=== PATIENT | male | born 1960 | race Caucasian/White ===

== ENCOUNTER 2018-02-03 09:48 | Inpatient (IN) | payer SELFPAY ==
[2018-02-03] MEDS ORDERED: ONDANSETRON 4 MG/2 ML VIAL ONE (10:57)
[2018-02-03] MEDS ORDERED: MORPHINE 10 MG/ML VIAL ONE (10:57)
[2018-02-03] MEDS ORDERED: NA CHLORIDE 0.9% 1,000 ML ONE (10:57)
[2018-02-03 11:26] LABS: Absolute Lymphocytes (CBC) 1.8 K/uL (0.7-4.9); Absolute Monocytes 0.5 K/uL (0.1-1.3); Absolute Neutrophil 3.6 K/uL (1.8-8.0); Basophils % 1.1 % (0-1.3); Eosinophils % 0.3 % (0-4.4); Hematocrit 43.6 % (39.6-49.0); Lymphocytes % 30.6 % (15.3-44.8); MCH 28.7 pg (27.0-35.0); MCV 88.1 fL (80-100); MPV 11.3 fL (7.6-11.3); Monocytes % 8.9 % (3.3-12.3); RBC Red Blood Cell Count 4.95 M/uL (4.33-5.43)
[2018-02-03 14:18] LABS: ALT/SGPT 115 IU/L (10-60); Albumin 2.9 g/dL (3.2-5.5); Alkaline Phosphatase 349 IU/L (42-121); BUN Blood Urea Nitrogen 12 mg/dL (6-20); Bicarbonate 21 mEq/L (21-31); Bilirubin Direct 1.8 mg/dL (0-0.2); Bilirubin Total 4.2 mg/dL (0.3-1.2); Glucose Level 98 mg/dL (65-120); Lipase 49 U/L (22-51); Potassium 4.5 mEq/L (3.6-5.0); Sodium Level 132 mEq/L (135-145)
[2018-02-03 14:26] LABS: AST/SGOT 346 IU/L (10-42)
--- NOTE | 2018-02-03 15:01 | RAD REPORT ---
EXAM DESCRIPTION: CTAbdomen Pelvis W Contrast - 02/03/2018 2:41 pm CLINICAL HISTORY: Abdominal pain. Nausea, vomiting and diarrhea. COMPARISON: 11/07/2017, 02/03/2015 TECHNIQUE: Biphasic CT imaging of the abdomen and pelvis was performed with 100 ml non-ionic IV cont rast. All CT scans are performed using dose optimization technique as appropriate and may include automated exposure control or mA/KV adjustment according to patient size. FINDINGS: The lung bases are clear. Prominent diffuse fatty liver noted. Cholecystectomy clips are seen. The spleen, pancreas, adrenal gl ands and kidneys are within normal limits. No bowel obstruction, free air, free fluid or abscess. Mild mucosal thickening of the colon is seen w hich could indicate a mild nonspecific colitis. The appendix appears absent. Scattered colonic divert icula. No evidence of significant lymphadenopathy. No suspicious bony findings. IMPRESSION: Mild nonspecific colitis is suspected. Fatty liver.
--- NOTE | 2018-02-03 15:32 | ER ---
Nurse's Notes [facility] Name: Wilver Mejia Age: 57 yrs Sex: Male : 1960 Arrival Date: 02/03/2018 Time: 09:48 Bed 20 Private MD: Diagnosis: Colitis;Vomiting Presentation: 02/03 10:24 Presenting complaint: Patient states: " My stomach has been hurting me bad for about a ph week and a half." Reports pain in L upper and lower quandrants, + N/V/D, denies fever. Transition of care: patient was not received from another setting of care. Onset of symptoms was February 03, 2018. Initial Sepsis Screen: Does the patient meet any 2 criteria? No. Patient's initial sepsis screen is negative. Does the patient have a suspected source of infection? No. Patient initial sepsis screen negative. Care prior to arrival: None. 10:24 Method Of Arrival: Ambulatory ph 10:24 Acuity: NADEEN 3 ph Historical: - Allergies: 10:26 No Known Allergies; ph - Home Meds: 10:26 hydrochlorothiazide 25 mg Oral tab 1 tab once daily [Active]; ph - PMHx: 10:26 Hypertension; ph - PSHx: 10:26 Cholecystectomy; Appendectomy; ph - Immunization history:: Adult Immunizations unknown. - Social history:: Smoking status: Patient uses tobacco products, smokes one-half pack cigarettes per day. - Family history:: not pertinent. - Hospitalizations: : No recent hospitalization is reported. Screenin:30 Abuse screen: Denies threats or abuse. Denies injuries from another. Nutritional aj1 screening: No deficits noted. Tuberculosis screening: No symptoms or risk factors identified. 17:10 Fall Risk No fall in past 12 months (0 pts). No secondary diagnosis (0 pts). IV access aj1 (20 points). Ambulatory Aid- None/Bed Rest/Nurse Assist (0 pts). Gait- Normal/Bed Rest/Wheelchair (0 pts) Mental Status- Oriented to own ability (0 pts). Total Floyd Fall Scale indicates No Risk (0-24 pts). Assessment: 10:30 General: Appears in no apparent distress. uncomfortable, Behavior is calm, cooperative, aj1 appropriate for age. Pain: Complains of pain in right upper quadrant and right lower quadrant Pain does not radiate. Pain currently is 10 out of 10 on a pain scale. Quality of pain is described as sharp, Pain began one week ago. Neuro: Level of Consciousness is awake, alert, obeys commands, Oriented to person, place, time, situation, Speech is normal, Facial symmetry appears normal. Cardiovascular: Patient's skin is warm and dry. Respiratory: Airway is patent Respiratory effort is even, unlabored, Respiratory pattern is regular, symmetrical. GI: Abdomen is flat, non-distended, Bowel sounds present X 4 quads. Abd is soft X 4 quads Abdomen is tender to palpation X 4 quads. Reports lower abdominal pain, upper abdominal pain, diarrhea, nausea, vomiting. : No signs and/or symptoms were reported regarding the genitourinary system. EENT: No signs and/or symptoms were reported regarding the EENT system. Derm: No signs and/or symptoms reported regarding the dermatologic system. Skin is pink, warm \\T\\ dry. normal. Musculoskeletal: No signs and/or symptoms reported regarding the musculoskeletal system. Circulation, motion, and sensation intact. 11:18 Reassessment: Patient appears in no apparent distress at this time. No changes from aj1 previously documented assessment. Patient and/or family updated on plan of care and expected duration. Pain level reassessed. Patient is alert, oriented x 3, equal unlabored respirations, skin warm/dry/pink. 12:28 Reassessment: Patient appears in no apparent distress at this time. No changes from aj1 previously documented assessment. Patient and/or family updated on plan of care and expected duration. Pain level reassessed. Patient is alert, oriented x 3, equal unlabored respirations, skin warm/dry/pink. 13:17 Reassessment: Patient appears in no apparent distress at this time. No changes from aj1 previously documented assessment. Patient and/or family updated on plan of care and expected duration. Pain level reassessed. Patient is alert, oriented x 3, equal unlabored respirations, skin warm/dry/pink. 14:19 Reassessment: Patient and/or family updated on plan of care and expected duration. Pain aj1 level reassessed. General: Appears in no apparent distress. comfortable, Behavior is calm, cooperative. Neuro: Level of Consciousness is awake, alert, obeys commands, Oriented to person, place, time, situation, Speech is normal, Facial symmetry appears normal. Cardiovascular: Patient's skin is warm and dry. Respiratory: Airway is patent Respiratory effort is even, unlabored, Respiratory pattern is regular, symmetrical. GI: Abdomen is flat, non-distended, Abd is soft X 4 quads. Derm: Skin is pink, warm \\T\\ dry. normal. Musculoskeletal: Circulation, motion, and sensation intact. 15:22 Reassessment: Patient appears in no apparent distress at this time. No changes from aj1 previously documented assessment. Patient and/or family updated on plan of care and expected duration. Pain level reassessed. Patient is alert, oriented x 3, equal unlabored respirations, skin warm/dry/pink. 16:30 Reassessment: Patient appears in no apparent distress at this time. No changes from aj1 previously documented assessment. Patient and/or family updated on plan of care and expected duration. Pain level reassessed. Patient is alert, oriented x 3, equal unlabored respirations, skin warm/dry/pink. 17:09 Reassessment: Dr. Swan at bedside. aj1 17:30 Reassessment: Patient appears in no apparent distress at this time. No changes from aj1 previously documented assessment. Patient and/or family updated on plan of care and expected duration. Pain level reassessed. Patient is alert, oriented x 3, equal unlabored respirations, skin warm/dry/pink. 18:30 Reassessment: Patient and/or family updated on plan of care and expected duration. Pain aj1 level reassessed. General: Appears in no apparent distress. comfortable, Behavior is calm, cooperative. Neuro: Level of Consciousness is awake, alert, obeys commands, Oriented to person, place, time, situation, Speech is normal, Facial symmetry appears normal. Cardiovascular: Patient's skin is warm and dry. Respiratory: Airway is patent Respiratory effort is even, unlabored, Respiratory pattern is regular, symmetrical. GI: Abdomen is flat, non-distended, Bowel sounds present X 4 quads. Abd is soft X 4 quads Abdomen is tender to palpation X 4 quads. Reports lower abdominal pain, upper abdominal pain. : No signs and/or symptoms were reported regarding the genitourinary system. EENT: No signs and/or symptoms were reported regarding the EENT system. Derm: No signs and/or symptoms reported regarding the dermatologic system. Skin is pink, warm \\T\\ dry. normal. Musculoskeletal: No signs and/or symptoms reported regarding the musculoskeletal system. Circulation, motion, and sensation intact. 19:30 Reassessment: Patient appears in no apparent distress at this time. No changes from aj1 previously documented assessment. Patient and/or family updated on plan of care and expected duration. Pain level reassessed. Patient is alert, oriented x 3, equal unlabored respirations, skin warm/dry/pink. 20:12 Reassessment: Patient appears in no apparent distress at this time. No changes from aj1 previously documented assessment. Patient and/or family updated on plan of care and expected duration. Pain level reassessed. Patient is alert, oriented x 3, equal unlabored respirations, skin warm/dry/pink. Vital Signs: 10:26 BP 161 / 115; Pulse 122; Resp 24; Temp 97.3; Pulse Ox 96% on R/A; Weight 90.72 kg; ph Height 6 ft. 3 in. (190.50 cm); Pain 10/10; 11:18 BP 154 / 87; Pulse 98; Resp 18; Pulse Ox 95% on R/A; aj1 13:17 BP 160 / 87; Pulse 93; Resp 18; Pulse Ox 97% ; aj1 14:20 BP 161 / 88; Pulse 93; Resp 18; Pulse Ox 98% ; aj1 15:22 BP 161 / 90; Pulse 102; Resp 18; Pulse Ox 95% on R/A; aj1 17:10 BP 158 / 87; Pulse 105; Resp 20; Pulse Ox 98% on R/A; aj1 20:12 BP 160 / 89; Pulse 97; Resp 18; Pulse Ox 96% on R/A; aj1 10:26 Body Mass Index 25.00 (90.72 kg, 190.50 cm) ph ED Course: 09:48 Patient arrived in ED. as 10:26 Triage completed. ph 10:27 Arm band placed on. ph 10:29 Felipe Jiménez MD is Attending Physician. rn 10:29 Angelina Wilson, SHARONDA is Primary Nurse. aj1 10:30 Patient has correct armband on for positive identification. Bed in low position. Call aj1 light in reach. Side rails up X 1. 10:30 No provider procedures requiring assistance completed. aj1 10:41 Inserted saline lock: 22 gauge in right forearm, using aseptic technique. ,using aj1 aseptic technique. IV inserted by training associate Judson. Blood collected. 11:23 EKG done, by music sound light technician. reviewed by Felipe Jiménez MD. 13:57 Radiology exam delayed due to lab results not completed at this time. (BUN/Creatinine). 14:42 CT Abd/Pelvis - W/Contrast In Process Unspecified. EDIA 14:43 CT completed. Patient tolerated procedure well. Patient moved back from CT. sj 15:29 Jake Swan DO is Hospitalizing Provider. rn 15:29 Sasha Swan MD is Hospitalizing Provider. rn 20:11 Report given to SHARONDA Diaz. aj1 20:11 Patient admitted, IV remains in place. aj1 Administered Medications: 11:03 Drug: morphine 4 mg Route: IVP; Site: right forearm; aj1 11:50 Follow up: Response: No adverse reaction aj1 11:04 Drug: Zofran 4 mg Route: IVP; Site: right forearm; aj1 11:51 Follow up: Response: No adverse reaction aj1 11:04 Drug: NS 0.9% 1000 ml Route: IV; Rate: 1000 ml; Site: right forearm; aj1 17:12 Follow up: IV Status: Completed infusion; IV Intake: 1000ml aj1 15:51 Drug: Cipro 400 mg Volume: 200 ml; Route: IVPB; Infused Over: 60 mins; Site: right aj1 forearm; 17:12 Follow up: IV Status: Completed infusion; IV Intake: 200ml aj1 20:13 Follow up: IV Status: Completed infusion; IV Intake: 200ml aj1 15:51 Drug: Flagyl 500 mg Volume: 100 ml; Route: IVPB; Rate: 200 ml/hr; Infused Over: 30 aj1 mins; Site: right forearm; 17:13 Follow up: IV Status: Completed infusion; IV Intake: 100ml aj1 20:13 Follow up: IV Status: Completed infusion; IV Intake: 100ml aj1 Intake: 17:12 IV: 1000ml; Total: 1000ml. aj1 17:12 IV: 200ml; Total: 1200ml. aj1 17:13 IV: 100ml; Total: 1300ml. aj1 20:13 IV: 200ml; Total: 1500ml. aj1 20:13 IV: 100ml; Total: 1600ml. aj1 Outcome: 15:31 Decision to Hospitalize by Provider. rn 20:37 Admitted to Med/surg accompanied by tech, via wheelchair, room 406. aj1 20:37 Condition: stable 20:37 Discharge instructions given to patient, Instructed on the need for admit, Demonstrated understanding of instructions. 20:37 Patient left the ED. aj1 Signatures: Dispatcher [employer] EDMS Angelina Wilson RN RN aj1 Jennifer Ontiveros Amelia as Nieto, Roman, MD MD rn Harrell, Venessa vh Hall, Patricia, RN RN ph Corrections: (The following items were deleted from the chart) : 11: General: Appears in no apparent distress. uncomfortable, Behavior is calm, aj1 cooperative, appropriate for age, aj1 11: Pain: Complains of pain in right upper quadrant and right lower quadrant Pain aj1 does not radiate. Pain currently is 10 out of 10 on a pain scale. Quality of pain is described as sharp, Pain began one week ago aj1 11: Neuro: Level of Consciousness is awake, alert, obeys commands, Oriented to aj1 person, place, time, situation, Speech is normal, Facial symmetry appears normal, aj1 11: Cardiovascular: Patient's skin is warm and dry. aj1 aj1 11: Respiratory: Airway is patent Respiratory effort is even, unlabored, Respiratory aj1 pattern is regular, symmetrical, aj1 11: GI: Abdomen is flat, non-distended, Bowel sounds present X 4 quads. Abd is soft X aj1 4 quads Abdomen is tender to palpation X 4 quads. Reports lower abdominal pain, upper abdominal pain, diarrhea, nausea, vomiting, aj1 11: : No signs and/or symptoms were reported regarding the genitourinary system. aj1aj1 : 11:06 EENT: No signs and/or symptoms were reported regarding the EENT system. aj1 aj1 11: Derm: No signs and/or symptoms reported regarding the dermatologic system. Skin aj1 is pink, warm \\T\\ dry. normal, aj1 11: Musculoskeletal: No signs and/or symptoms reported regarding the musculoskeletal aj1 system. Circulation, motion, and sensation intact. aj1
--- NOTE | 2018-02-03 15:32 | EDPHYS ---
Physician Documentation [facility] Name: Wilver Mejia Age: 57 yrs Sex: Male : 1960 Arrival Date: 02/03/2018 Time: 09:48 Bed 20 Private MD: ED Physician Felipe Jiménez HPI: 02/03 10:51 This 57 yrs old Male presents to ER via Ambulatory with complaints of rn Abdominal Pain. 10:51 The patient presents with abdominal pain that is diffuse. Onset: The symptoms/episode rn began/occurred 1 week(s) ago. The symptoms do not radiate. Associated signs and symptoms: Pertinent positives: nausea and vomiting, diarrhea, Pertinent negatives: fever, shortness of breath, testicular pain. Modifying factors: The symptoms are alleviated by nothing, the symptoms are aggravated by movement, touching the area. Severity of pain: At its worst the pain was moderate in the emergency department the pain is unchanged. The patient has not experienced similar symptoms in the past. Reports diffuse abd pain, nausea/vomiting/diarrhea, states small amount of blood in emesis the most recent episodes, drinks frequently but not today. Reports cholecystectomy and appendectomy. . Historical: - Allergies: 10:26 No Known Allergies; ph - Home Meds: 10:26 hydrochlorothiazide 25 mg Oral tab 1 tab once daily [Active]; ph - PMHx: 10:26 Hypertension; ph - PSHx: 10:26 Cholecystectomy; Appendectomy; ph - Immunization history:: Adult Immunizations unknown. - Social history:: Smoking status: Patient uses tobacco products, smokes one-half pack cigarettes per day. - Family history:: not pertinent. - Hospitalizations: : No recent hospitalization is reported. ROS: 10:51 Constitutional: Negative for fever, chills, and weight loss, Eyes: Negative for injury, rn pain, redness, and discharge, Neck: Negative for injury, pain, and swelling, Cardiovascular: Negative for chest pain, palpitations, and edema, Respiratory: Negative for shortness of breath, cough, wheezing, and pleuritic chest pain, Abdomen/GI: + abd pain/nausea/vomiting/diarrhea Back: Negative for injury and pain, MS/Extremity: Negative for injury and deformity, Skin: Negative for injury, rash, and discoloration, Neuro: Negative for headache, weakness, numbness, tingling, and seizure. Exam: 10:51 Constitutional: This is a well developed, well nourished patient who is awake, alert, rn and in no acute distress. Head/Face: Normocephalic, atraumatic. Eyes: Pupils equal round and reactive to light, extra-ocular motions intact. Lids and lashes normal. Conjunctiva and sclera are non-icteric and not injected. Cornea within normal limits. Periorbital areas with no swelling, redness, or edema. Neck: Trachea midline, no thyromegaly or masses palpated, and no cervical lymphadenopathy. Supple, full range of motion without nuchal rigidity, or vertebral point tenderness. No Meningismus. Cardiovascular: tachycardic, regular, no murmur Respiratory: + mild tachypnea, no retractions, faint exp wheezing Abdomen/GI: soft, + tender in all quadrants MS/ Extremity: Pulses equal, no cyanosis. Neurovascular intact. Full, normal range of motion. Equal circumference. Neuro: Awake and alert, GCS 15, oriented to person, place, time, and situation. Cranial nerves II-XII grossly intact. Motor strength 5/5 in all extremities. Sensory grossly intact. Cerebellar exam normal. Normal gait. 11:32 ECG was reviewed by the Attending Physician. rn Vital Signs: 10:26 BP 161 / 115; Pulse 122; Resp 24; Temp 97.3; Pulse Ox 96% on R/A; Weight 90.72 kg; ph Height 6 ft. 3 in. (190.50 cm); Pain 10/10; 11:18 BP 154 / 87; Pulse 98; Resp 18; Pulse Ox 95% on R/A; aj1 13:17 BP 160 / 87; Pulse 93; Resp 18; Pulse Ox 97% ; aj1 14:20 BP 161 / 88; Pulse 93; Resp 18; Pulse Ox 98% ; aj1 15:22 BP 161 / 90; Pulse 102; Resp 18; Pulse Ox 95% on R/A; aj1 17:10 BP 158 / 87; Pulse 105; Resp 20; Pulse Ox 98% on R/A; aj1 20:12 BP 160 / 89; Pulse 97; Resp 18; Pulse Ox 96% on R/A; aj1 10:26 Body Mass Index 25.00 (90.72 kg, 190.50 cm) ph MDM: 10:29 Patient medically screened. rn 15:28 Differential diagnosis: bowel obstruction, diverticulitis, gastritis, gastroesophageal rn reflux disease, non-specific abd pain, Ureterolithiasis. Data reviewed: vital signs, nurses notes, lab test result(s), radiologic studies, CT scan, and as a result, I will admit patient. Counseling: I had a detailed discussion with the patient and/or guardian regarding: the historical points, exam findings, and any diagnostic results supporting the discharge/admit diagnosis, lab results, radiology results, the need for further work-up and treatment in the hospital. Response to treatment: the patient's symptoms have mildly improved after treatment, and as a result, I will admit patient. Admission orders: after a detailed discussion of the patient's condition and case, the admit orders are written by me. ED course: Pt still having vomiting episodes, tender, scared to go home since lives by himself, given abx, will admit. . 02/03 10:35 Order name: Basic Metabolic Panel; Complete Time: 14:52 02/03 10:35 Order name: CBC with Diff; Complete Time: 12:34 rn 02/03 10:35 Order name: Creatinine for Radiology; Complete Time: 14:52 rn 02/03 10:35 Order name: Hepatic Function; Complete Time: 14:52 rn 02/03 10:35 Order name: Lipase; Complete Time: 14:52 rn 02/03 10:35 Order name: Troponin (emerg Dept Use Only); Complete Time: 14:52 rn 02/03 10:35 Order name: CT Abd/Pelvis - W/Contrast; Complete Time: 15:04 rn 02/03 18:30 Order name: Protime (+INR) EDVT 02/03 18:30 Order name: PTT, Activated Partial Thromb EDVT 02/03 10:35 Order name: IV Saline Lock; Complete Time: 10:54 rn 02/03 10:35 Order name: Labs collected and sent; Complete Time: 10:54 rn 02/03 10:35 Order name: EKG; Complete Time: 10:36 rn 02/03 10:35 Order name: EKG - Nurse/Tech; Complete Time: 11:50 rn 02/03 11:13 Order name: Labs - recollect needed; Complete Time: 11:50 bd EC:32 Rate is 100 beats/min. Rhythm is regular. QRS [place] is Normal. NE interval is normal. rn QRS interval is normal. QT interval is normal. No Q waves. T waves are Normal. No ST changes noted. Clinical impression: Normal ECG. Interpreted by me. Administered Medications: 11:03 Drug: morphine 4 mg Route: IVP; Site: right forearm; aj 11:50 Follow up: Response: No adverse reaction [facility] 11:04 Drug: Zofran 4 mg Route: IVP; Site: right forearm; aj1 11:51 Follow up: Response: No adverse reaction [facility] 11:04 Drug: NS 0.9% 1000 ml Route: IV; Rate: 1000 ml; Site: right forearm; aj 17:12 Follow up: IV Status: Completed infusion; IV Intake: 1000ml [facility] 15:51 Drug: Cipro 400 mg Volume: 200 ml; Route: IVPB; Infused Over: 60 mins; Site: right aj1 forearm; 17:12 Follow up: IV Status: Completed infusion; IV Intake: 200ml [facility] 20:13 Follow up: IV Status: Completed infusion; IV Intake: 200ml [facility] 15:51 Drug: Flagyl 500 mg Volume: 100 ml; Route: IVPB; Rate: 200 ml/hr; Infused Over: 30 aj1 mins; Site: right forearm; 17:13 Follow up: IV Status: Completed infusion; IV Intake: 100ml [facility] 20:13 Follow up: IV Status: Completed infusion; IV Intake: 100ml [facility] Disposition: 02/03/18 15:31 Hospitalization ordered by Sasha Swan for Inpatient Admission. Preliminary diagnosis are Colitis, Vomiting. - Bed requested for Telemetry/MedSurg (Inpatient). - Status is Inpatient Admission. aj1 - Condition is Stable. - Problem is new. - Symptoms have improved. UTI on Admission? No Signatures: Dispatcher [employer] EDJanet Barnes Angela, RN RN aj1 Felipe Jiménez MD MD rn Hall, Patricia, RN RN
[2018-02-03] MEDS ORDERED: METRONIDAZOLE 500mg IVPB 500 MG/100 ML BAG IV ONE (15:41)
[2018-02-03] MEDS ORDERED: CIPROFLOXACIN 400mg IV 400 MG/200 ML BAG IV ONE (15:41)
--- NOTE | 2018-02-03 16:28 | EKG ---
Test Date: 2018-02-03 Test Time: 11:12:10 Cardiovascular Technologist: GREYSON MEASUREMENT RESULTS: Intervals: Rate: 100 DC: 140 QRSD: 88 QT: 334 QTc: 430 [place]: P: 59 DC: 140 QRS: 75 T: 61 INTERPRETIVE STATEMENTS: Normal sinus rhythm Normal ECG Compared to ECG 11/07/2017 12:24:34 Sinus tachycardia no longer present Electronically Signed On 02-03-18 16:27:49 CDT by Ferny Zavala
[2018-02-03] MEDS ORDERED: PROMETHAZINE 25 MG TABLET PO PRN (17:22)
[2018-02-03] MEDS ORDERED: ONDANSETRON 4 MG/2 ML VIAL IV PRN (17:22)
--- NOTE | 2018-02-03 17:46 | P.HP ---
Certification for Inpatient Patient admitted to: Inpatient With expected LOS: >2 Midnights Patient will require the following post-hospital care: None Practitioner: I am a practitioner with admitting privileges, knowledge of patient current condition, hospital course, and medical plan of care. Services: Services provided to patient in accordance with Admission requirements found in Title 42 Section 412.3 of the Code of Federal Regulations Patient History Date of Service: 02/03/18 Primary Care Provider: None Reason for admission: Abd pain History of Present Illness: This is a 57-year-old male with significant past medical history of hypertension who presented to the ED complaining of having some diffuse abdominal pain nausea vomiting and watery diarrhea. Patient stated that his symptoms have been going on for about 1 week and a half and has been getting progressively worse. He has not been able to keep anything down other than soup at night time which he eventually throws up in the morning. Patient states that in the morning he starts having some dry heaving and then noticed that he cough off all blood. Patient says that he has not had similar episodes in the past and is the 1st time that he noticed the abdominal pain. Patient is not followup with a primary care provider or does not have any GI doctor. Patient is states that he takes about 1-2 alcoholic beverages at night time mostly beer. Allergies No Known Drug Allergies Allergy (Mild, Unverified 04/10/16 03:34) Unknown No Known Allergie Allergy (Uncoded 04/06/16 22:54) Unknown Home Medications: NK [No Home Meds] 02/03/15 - Past Medical/Surgical History Diabetic: No -: HTN -: ETOH ABUSE -: paralytic ileus -: cholecystectomy -: appendectomy - Social History Alcohol use: Yes CD- Drugs: No Caffeine use: Yes Review of Systems General: As per HPI Physical Examination - Physical Exam General: Alert, In no apparent distress, Oriented x3 HEENT: Atraumatic, Scleral icterus Neck: Supple Respiratory: Clear to auscultation bilaterally, Normal air movement Cardiovascular: Regular rate/rhythm, Normal S1 S2 Gastrointestinal: Normal bowel sounds, Tenderness (Generalized lower abdomen) Musculoskeletal: No tenderness Integumentary: No rashes Neurological: Normal speech, Normal tone Lymphatics: No axilla or inguinal lymphadenopathy - Studies Laboratory Data (last 24 hrs) 02/03/18 12:40: Creatinine 0.72 02/03/18 12:40: Sodium 132 L, Potassium 4.5, BUN 12, Creatinine 0.72, Glucose 98 , Total Bilirubin 4.2 H, AST 346 H*, ALT 115 H, Alkaline Phosphatase 349 H, Lipase 49 02/03/18 10:31: WBC 6.0, Hgb 14.2, Hct 43.6, Plt Count 165 Assessment and Plan - Problems (Diagnosis) (1) Colitis Current Visit: Yes Status: Acute Plan: Abd pain with N/V -Cipro and flagyl -GI consulted. -NPO with IV fluids (2) Elevated transaminase level Current Visit: Yes Status: Acute Plan: H/O of questionable Hepatitis -Acute panel ordered -IV fluids and GI consult. (3) HTN (hypertension) Current Visit: Yes Status: Chronic Qualifiers: Hypertension type: essential hypertension Qualified Code(s): I10 - Essential (primary) hypertension Discharge Plan: Home Plan to discharge in: 24 Hours - Advance Directives Does patient have a Living Will: No Does patient have a Durable POA for Healthcare: No - Code Status/Comfort Care Code Status Assessed: Yes Critical Care: No
[2018-02-03] MEDS: METRONIDAZOLE 500mg IVPB 500 MG/100 ML BAG IV SCH (18:00)
[2018-02-03 18:22] LABS: Protime INR 0.92
[2018-02-03] MEDS: CIPROFLOXACIN 400mg IV 400 MG/200 ML BAG IV SCH (21:00)
[2018-02-03] MEDS: NA CHLORIDE 0.9% 1,000 ML IV SCH (21:13)
[2018-02-03] MEDS: KETOROLAC 30 MG/ML INJ IV PRN (21:13)
[2018-02-04] MEDS: METRONIDAZOLE 500mg IVPB 500 MG/100 ML BAG IV SCH ×5 (00:52→23:07)
[2018-02-04] MEDS: NA CHLORIDE 0.9% 1,000 ML IV SCH ×3 (04:00→23:07)
[2018-02-04 04:51] LABS: MCV 86.8 fL (80-100); MPV 9.3 fL (7.6-11.3); RBC Red Blood Cell Count 4.03 M/uL (4.33-5.43)
[2018-02-04 05:39] LABS: ALT/SGPT 105 IU/L (10-60); AST/SGOT 246 IU/L (10-42); Albumin 2.5 g/dL (3.2-5.5); Alkaline Phosphatase 300 IU/L (42-121); BUN Blood Urea Nitrogen 10 mg/dL (6-20); Bicarbonate 30 mEq/L (21-31); Bilirubin Total 4.5 mg/dL (0.3-1.2); Glucose Level 105 mg/dL (65-120); Magnesium 1.7 mg/dL (1.8-2.5); Phosphorus 3.5 mg/dL (2.5-4.3); Potassium 3.8 mEq/L (3.6-5.0); Protein, Total 5.7 g/dL (6.0-8.3); Sodium Level 133 mEq/L (135-145)
[2018-02-04 05:48] LABS: Protime INR 0.88
[2018-02-04] MEDS ORDERED: MAGNESIUM SULFATE 1 gm IVPB 1 GM/100 ML BAG IV ONE (05:55)
[2018-02-04 06:42] LABS: Urine Appearance CLEAR; Urine Bilirubin 3+ (NEG); Urine Blood TRACE (NEG); Urine Color AMBER; Urine Glucose TRACE (NEG); Urine Protein 2+ (NEG); Urine Specific Gravity 1.025 (1.005-1.030); Urine pH 5.5 (5.0-7.0)
[2018-02-04 06:51] LABS: Urine Microscopic Reflex ORDER UMIC
[2018-02-04 06:53] LABS: THC Cannibis ND; Urine Bacteria <20 /HPF (NONE SEEN); Urine Culture Reflex Order NOT NEEDED; Urine Mucus HEAVY /HPF (NONE SEEN); Urine RBC <5 /HPF (NONE SEEN)
[2018-02-04 06:54] LABS: Barbiturates NEGATIVE; Benzodiazepines NEGATIVE; Cocaine NEGATIVE; METHAMPHETAM NEGATIVE; Opiates POSITIVE; Phencyclidine NEGATIVE
[2018-02-04] MEDS ORDERED: KCL 20 MEQ/100 mL IVPB 20 MEQ/100 ML BAG IV SCH (07:30)
[2018-02-04] MEDS: KETOROLAC 30 MG/ML INJ IV PRN (07:56)
[2018-02-04] MEDS: CIPROFLOXACIN 400mg IV 400 MG/200 ML BAG IV SCH ×2 (09:08→20:39)
[2018-02-04 10:05] LABS: Blood Morphology Comment NOT SEEN (NOT SEEN); Platelet Estimate DECR
[2018-02-04] MEDS ORDERED: HYDRALAZINE HCL 20 MG/ML VIAL IV ONE (10:55)
--- NOTE | 2018-02-04 13:42 | P.PN ---
Subjective Date of Service: 02/04/18 Primary Care Provider: None Chief Complaint: Abd pain Pt seen and examined at bedside with RN. Chart reveiwed. Case D/w with GI. Awaiting reccs and lab at this time. And still complaining of having some nausea and vomiting this morning. Currently is NPO. States that his abdominal pain is still there however has improved much from yesterday. Review of Systems 10-point ROS is otherwise unremarkable Physical Examination - Vital Signs Temperature: 98.6 F Blood Pressure: 170/92 Pulse: 90 Respirations: 20 Pulse Ox (%): 94 - Physical Exam General: Alert, In no apparent distress, Oriented x3 HEENT: Atraumatic Neck: Supple Respiratory: Clear to auscultation bilaterally, Normal air movement Cardiovascular: Regular rate/rhythm, Normal S1 S2 Gastrointestinal: Normal bowel sounds, Soft and benign, Tenderness Musculoskeletal: No tenderness Integumentary: No rashes Neurological: Normal speech, Normal tone, Normal affect Lymphatics: No axilla or inguinal lymphadenopathy - Studies Laboratory Data (last 24 hrs) 02/03/18 12:40: Creatinine 0.72 02/03/18 12:40: Sodium 132 L, Potassium 4.5, BUN 12, Creatinine 0.72, Glucose 98 , Total Bilirubin 4.2 H, AST 346 H*, ALT 115 H, Alkaline Phosphatase 349 H, Lipase 49 Medications List Reviewed: Yes Assessment & Plan - Problems (Diagnosis) (1) Colitis Onset Date: 02/04/18 Current Visit: Yes Status: Acute Plan: Abd pain with N/V. Still with N/V today. Improvement in Abd pain. -Cipro and flagyl -GI consulted. -NPO with IV fluids (2) Elevated transaminase level Onset Date: 02/04/18 Current Visit: Yes Status: Acute Plan: H/O of questionable Hepatitis. Improvement in AST and ALT today. Elevated Tbili. -Acute hepatitis panel pending. Past Hepatitis B ? positive. -IV fluids and GI consult. (3) HTN (hypertension) Onset Date: 02/04/18 Current Visit: Yes Status: Chronic Qualifiers: Hypertension type: essential hypertension Qualified Code(s): I10 - Essential (primary) hypertension Discharge Plan: Home Plan to discharge in: 24 Hours - Code Status/Comfort Care Code Status Assessed: Yes Critical Care: No
--- NOTE | 2018-02-04 18:04 | CON ---
Date of Consultation: 02/04/2018 Reason For Consultation: Abnormal CT scan, abdominal pain, nausea, vomiting, and diarrhea. History Of Present Illness: Mr. Mejia is a 57-year-old gentleman, who presented to the hospital with increasing abdominal pain, nausea, vomiting, and diarrhea. The symptom complex are 2 days in d uration. He denies of any travel, any exotic food, any antibiotic or any other predisposing factor. Abdominal pain became 10/10. This is crampy abdominal pain with exacerbations with bowel movement. He also had severe burning sensation. Denies any hematemesis, melena, or hematochezia. No fever or chills. After coming to the hospital, he is somewhat better. Does not have any fever chills at thi s time. Past Medical History: Hypertension, alcohol use. Past Surgical History: Cholecystectomy, appendectomy. Family History: Denies any gastrointestinal malignancy in the family. Social History: He drinks alcohol to a significant degree. Positive tobacco. Psychiatric History: None. Allergies: REVIEWED IN THE CHART. Medications: Reviewed in the chart. Review of Systems: General: No weight loss, weight gain. No fever or chills that he knows of. GI: As elaborated above. Hepatologic: Denies any history of jaundice, hepatitis, any other liver inflection in the past. He did not know that his liver enzymes are elevated any time in the past. Pulmonary: No shortness of breath, cough, or expectoration. Cardiac: No palpitation, heart murmur. No orthopnea or dyspnea. Genitourinary: No complaint. Musculoskeletal: no arthralgia, no myalgias, only some morning stiffness that has been chronic for a while. Dermatologic: No pruritus. Physical Examination: General: Young male, no acute distress noted; however, appears to be icteric although he denies. He modynamic and respiratory profile within normal range. HEENT: Atraumatic, normocephalic. No pallor, but icterus noted. No temporal wasting noted. Oropha ryngeal areas have icterus. Neck: Supple. No lymphadenopathy. Trachea central in position. Chest: Clear to auscultation and percussion. Cardiovascular: Normal S1, S2. No S3, no S4. Abdomen: Soft; however, diffuse tenderness on deep palpation. No hepatomegaly. No splenomegaly. N o ascites. No succussion splash. No rebound tenderness. Extremities: Upper and lower extremities are normal, symmetrical. Dermatologic: Normal other than icterus. Neurologic: He is alert and oriented x3. Intact memory, mentation, and judgment. He can move all p arts of extremities without any other problem. No asterixis. No flapping tremor. Diagnostic Data: Reviewed and analyzed of importance. AST, ALT is 346 and 115 respectively, alkalin e phosphatase 342, total bilirubin is 4.2, and albumin is 2.9. CT scan, just nonspecific colitis and fatty liver. Impression, Plan, And Recommendation: Mr. Mejia is a 57-year-old gentleman with at this time ac loyd problem of colitis, diarrhea, nausea, vomiting, abdominal pain, also he has elevated LFT includin g jaundice. With hypoalbuminemia, it will be probably consistent with cirrhosis. He will need significant workup. We will do all cirrhosis workup in addition to that, continue on an tibiotic because being cirrhotic, he is at a very high risk for Salmonella infection. Preferably ant ibiotic should cover salmonella. His nausea, vomiting is somewhat better. I will start him on diet. He is advised to follow up in the office. Once his acute condition resolves we will do a colonosco py to rule out any colorectal neoplasia. I have had a long discussion with the patient regarding his management. Discussion of complications, discussion of colonoscopy. Indications, contraindications, possible complications discussed with th e patient including but not limited to the possibility of bleeding, perforation, tear, infection, sep sis, need for surgery, need for blood transfusion, anesthesia related problems including rare fatalit ies. I will also order new blood workup. AMERICA/ALCIDES Voice ID: [id number] Report ID: [id number]
[2018-02-05 04:23] LABS: Absolute Lymphocytes (CBC) 1.3 K/uL (0.7-4.9); Absolute Monocytes 0.5 K/uL (0.1-1.3); Absolute Neutrophil 2.5 K/uL (1.8-8.0); Basophils % 1.1 % (0-1.3); Eosinophils % 1.5 % (0-4.4); Hematocrit 34.7 % (39.6-49.0); Lymphocytes % 29.6 % (15.3-44.8); MCV 85.6 fL (80-100); MPV 9.7 fL (7.6-11.3); Monocytes % 11.5 % (3.3-12.3); RBC Red Blood Cell Count 4.05 M/uL (4.33-5.43)
[2018-02-05 04:24] LABS: ALT/SGPT 113 IU/L (10-60); AST/SGOT 269 IU/L (10-42); Albumin 2.6 g/dL (3.2-5.5); Alkaline Phosphatase 323 IU/L (42-121); Bicarbonate 29 mEq/L (21-31); Bilirubin Total 3.4 mg/dL (0.3-1.2); Glucose Level 114 mg/dL (65-120); Magnesium 1.8 mg/dL (1.8-2.5); Potassium 3.7 mEq/L (3.6-5.0); Protein, Total 6.2 g/dL (6.0-8.3); Sodium Level 132 mEq/L (135-145)
[2018-02-05 04:35] LABS: BUN Blood Urea Nitrogen < 5 mg/dL (6-20)
[2018-02-05] MEDS: METRONIDAZOLE 500mg IVPB 500 MG/100 ML BAG IV SCH ×4 (05:23→23:40)
[2018-02-05] MEDS: KETOROLAC 30 MG/ML INJ IV PRN (05:26)
[2018-02-05] MEDS ORDERED: MAGNESIUM SULFATE 1 gm IVPB 1 GM/100 ML BAG IV ONE (06:25)
[2018-02-05] MEDS ORDERED: POTASSIUM CL SA 10 MEQ TAB PO ONE (06:26)
[2018-02-05] MEDS ORDERED: HYDRALAZINE HCL 20 MG/ML VIAL IV ONE (08:34)
[2018-02-05] MEDS: CIPROFLOXACIN 400mg IV 400 MG/200 ML BAG IV SCH ×2 (09:22→20:52)
[2018-02-05] MEDS: NA CHLORIDE 0.9% 1,000 ML IV SCH ×2 (09:22→20:52)
[2018-02-05] MEDS: LISINOPRIL 10 MG TAB PO SCH (10:35)
--- NOTE | 2018-02-05 14:32 | P.PN ---
Subjective Date of Service: 02/05/18 Primary Care Provider: None Chief Complaint: Abd pain Pt seen and examined at bedside with RN. Chart reveiwed. Case D/w with GI. Currenlty on Full liquid Diet. Tolerating well no complains to offer. States his pain is better than before. Review of Systems General: As per HPI Physical Examination - Vital Signs Temperature: 97.7 F Blood Pressure: 159/87 Pulse: 98 Respirations: 18 Pulse Ox (%): 96 - Physical Exam General: Alert, In no apparent distress HEENT: Atraumatic Neck: Supple, JVD not distended Respiratory: Clear to auscultation bilaterally, Normal air movement Cardiovascular: Regular rate/rhythm, Normal S1 S2 Gastrointestinal: Normal bowel sounds, Tenderness (LLQ) Musculoskeletal: No tenderness Integumentary: No rashes Neurological: Normal speech, Normal tone, Normal affect Lymphatics: No axilla or inguinal lymphadenopathy - Studies Medications List Reviewed: Yes Assessment & Plan - Problems (Diagnosis) (1) Colitis Onset Date: 02/04/18 Current Visit: Yes Status: Acute Plan: Abd pain with N/V. Still with N/V today. Improvement in Abd pain. -Cipro and flagyl -GI consulted. Appreciated Reccs. -Full Liquid diet now with IV fluids (2) Elevated transaminase level Onset Date: 02/04/18 Current Visit: Yes Status: Acute Plan: H/O of questionable Hepatitis. Improvement today -Acute hepatitis panel pending. Past Hepatitis B ? positive. -IV fluids and GI consult. (3) HTN (hypertension) Onset Date: 02/04/18 Current Visit: Yes Status: Chronic Qualifiers: Hypertension type: essential hypertension Qualified Code(s): I10 - Essential (primary) hypertension Discharge Plan: Home Plan to discharge in: 24 Hours - Code Status/Comfort Care Code Status Assessed: Yes Critical Care: No
[2018-02-06 02:38] LABS: HBsAG Nonreactive (Nonreactive); Hepatitis A IgM Antibody Nonreactive
[2018-02-06] MEDS: METRONIDAZOLE 500mg IVPB 500 MG/100 ML BAG IV SCH ×4 (05:10→23:06)
[2018-02-06] MEDS: NA CHLORIDE 0.9% 1,000 ML IV SCH (06:00)
[2018-02-06 06:34] LABS: Absolute Lymphocytes (CBC) 1.6 K/uL (0.7-4.9); Absolute Monocytes 0.6 K/uL (0.1-1.3); Absolute Neutrophil 2.5 K/uL (1.8-8.0); Eosinophils % 2.1 % (0-4.4); Hematocrit 34.6 % (39.6-49.0); Lymphocytes % 33.1 % (15.3-44.8); MCH 29.3 pg (27.0-35.0); MCV 85.5 fL (80-100); MPV 9.4 fL (7.6-11.3); RBC Red Blood Cell Count 4.04 M/uL (4.33-5.43)
[2018-02-06 06:53] LABS: ALT/SGPT 107 IU/L (10-60); AST/SGOT 206 IU/L (10-42); Albumin 2.5 g/dL (3.2-5.5); Alkaline Phosphatase 297 IU/L (42-121); BUN Blood Urea Nitrogen 5 mg/dL (6-20); Bicarbonate 28 mEq/L (21-31); Bilirubin Total 3.3 mg/dL (0.3-1.2); Glucose Level 116 mg/dL (65-120); Magnesium 1.8 mg/dL (1.8-2.5); Potassium 3.9 mEq/L (3.6-5.0); Sodium Level 132 mEq/L (135-145)
[2018-02-06] MEDS: CIPROFLOXACIN 400mg IV 400 MG/200 ML BAG IV SCH ×2 (08:47→20:20)
[2018-02-06] MEDS: LISINOPRIL 10 MG TAB PO SCH (08:47)
--- NOTE | 2018-02-06 10:10 | P.PN ---
Subjective Date of Service: 02/06/18 Primary Care Provider: None Chief Complaint: Abd pain Pt seen and examined at bedside with RN. Chart reveiwed. Case D/w with GI. Currenlty on Regular diet. Tolerating well no complains to offer. States his pain is better than before. Review of Systems 10-point ROS is otherwise unremarkable Physical Examination - Vital Signs Temperature: 97.6 F Blood Pressure: 165/95 Pulse: 84 Respirations: 16 Pulse Ox (%): 96 - Physical Exam General: Alert, In no apparent distress HEENT: Atraumatic, PERRLA, EOMI Neck: Supple, JVD not distended Respiratory: Clear to auscultation bilaterally, Normal air movement Cardiovascular: Regular rate/rhythm, Normal S1 S2 Gastrointestinal: Normal bowel sounds, Ascites (LLQ) Musculoskeletal: No tenderness Integumentary: No rashes Neurological: Normal speech, Normal tone, Normal affect Lymphatics: No axilla or inguinal lymphadenopathy - Studies Medications List Reviewed: Yes Assessment & Plan - Problems (Diagnosis) (1) Colitis Onset Date: 02/04/18 Current Visit: Yes Status: Acute Plan: Abd pain with N/V. Still with N/V today. Improvement in Abd pain. -Cipro and flagyl -GI consulted. Appreciated Reccs. -solid diet now (2) Elevated transaminase level Onset Date: 02/04/18 Current Visit: Yes Status: Acute Plan: H/O of questionable Hepatitis. Improvement today -Acute hepatitis panel pending. Past Hepatitis B ? positive. -GI consult. Appreciate Reccs. (3) HTN (hypertension) Onset Date: 02/04/18 Current Visit: Yes Status: Chronic Qualifiers: Hypertension type: essential hypertension Qualified Code(s): I10 - Essential (primary) hypertension Discharge Plan: Home Plan to discharge in: 24 Hours - Code Status/Comfort Care Code Status Assessed: Yes Critical Care: No
[2018-02-07] MEDS: PANTOPRAZOLE 40MG TABLET PO SCH (06:10)
[2018-02-07] MEDS: METRONIDAZOLE 500mg IVPB 500 MG/100 ML BAG IV SCH ×3 (06:10→17:00)
[2018-02-07] MEDS: CIPROFLOXACIN 400mg IV 400 MG/200 ML BAG IV SCH ×2 (08:30→21:12)
[2018-02-07] MEDS: LISINOPRIL 10 MG TAB PO SCH (08:30)
[2018-02-07 09:36] LABS: BUN Blood Urea Nitrogen 7 mg/dL (6-20); Bicarbonate 28 mEq/L (21-31); Glucose Level 308 mg/dL (65-120); Magnesium 1.7 mg/dL (1.8-2.5); Potassium 4.1 mEq/L (3.6-5.0); Sodium Level 123 mEq/L (135-145)
[2018-02-07] MEDS ORDERED: MAGNESIUM SULFATE 1 gm IVPB 1 GM/100 ML BAG IV ONE ×2 (11:00→15:00)
[2018-02-07] MEDS ORDERED: HYDRALAZINE HCL 20 MG/ML VIAL IV PRN (13:50)
[2018-02-07] MEDS ORDERED: NA CHLORIDE 0.9% 1,000 ML with POTASSIUM CL 10 MEQ IV SCH ×2 (14:00)
[2018-02-07] MEDS ORDERED: LISINOPRIL 20 MG TAB PO ONE (14:00)
[2018-02-07] MEDS ORDERED: Magnesium Sulfate 2gm IVPB 2 G/50 ML BAG IV ONE (14:00)
[2018-02-07] MEDS ORDERED: D50W 25 GM/50 ML SYRINGE IV PRN (14:04)
[2018-02-07] MEDS ORDERED: GLUCAGON 1 MG/VIAL IM PRN (14:04)
[2018-02-07] MEDS: INSULIN -REGULAR HUMAN 50 UNIT/0.5 ML ML SQ SCH ×2 (16:05→21:00)
[2018-02-07] MEDS: ENOXAPARIN 40 MG/0.4 ML SQ SCH (16:50)
[2018-02-07] MEDS: SODIUM CHLORIDE 1 GM TAB PO SCH (16:50)
[2018-02-07] MEDS: NA CHLORIDE 0.9% 1,000 ML IV SCH (18:51)
[2018-02-08] MEDS: METRONIDAZOLE 500mg IVPB 500 MG/100 ML BAG IV SCH ×4 (00:51→17:04)
[2018-02-08] MEDS: NA CHLORIDE 0.9% 1,000 ML IV SCH ×3 (00:51→11:00)
--- NOTE | 2018-02-08 01:29 | PN ---
Subjective: Currently, the patient lying in bed. He looks comfortable. He already had his lunch an d he has no nausea, no vomiting. He continued to have mild abdominal pain. No rebound, no guarding upon palpation. Bowel movement back to solid. Objective: Vital Signs: Currently, vital signs, blood pressure 159/86, respiratory rate 16, pulse 1 09, temperature 97.2. General: He is fully alert, oriented x3. Does not look in any distress. HEENT: Atraumatic, normocephalic. PERRLA. Oral mucosa is moist. Neck: Supple. No JVD. No carotid bruits. Chest: Clear to auscultation. Good air entry. Heart: Regular rate and rhythm. S1, S2 normal. No gallop or murmur. Abdomen: Minimal tenderness on the left lower quadrant. Extremities: No clubbing, no cyanosis, or edema. No calf tenderness. Neurologic: Grossly intact. Laboratory Data: Labs drawn today showed CBC was normal except for hemoglobin 11.8, platelets 103 up from 83 yesterday. On the chemistry, sodium 123, down; chloride 91; kidney function was normal. Gl ucose 308. Magnesium 1.7. LFTs not done. Assessment And Plan: 1.Acute colitis, improving. The patient is tolerating diet well. Continue patient on IV antibiotic with Cipro and Flagyl. GI noted. I do not have LFTs today. 2.Hyponatremia, severe. I will treat the patient on normal saline and place him on sodium tablet. 3.Elevated transaminases have been trending down, but there is no LFT today. We will reorder in a.m . 4.Hepatitis profile ordered, but results showed negative. 5.Hypertension, not well controlled. The patient on lisinopril 10, I will increase that to 20. I w ill place the patient on hydralazine 10 mg every 6 hours as needed. 6.Hypomagnesemia. I will replace it with IV. 7.We will start deep vein thrombosis prophylaxis with Lovenox. BERNICE/ALCIDES Voice ID: [id number] Report ID: [id number]
[2018-02-08 04:32] VITALS: BMI 25.1
[2018-02-08 06:21] LABS: Absolute Lymphocytes (CBC) 2.1 K/uL (0.7-4.9); Absolute Monocytes 1.2 K/uL (0.1-1.3); Absolute Neutrophil 3.7 K/uL (1.8-8.0); Basophils % 1.4 % (0-1.3); Eosinophils % 1.8 % (0-4.4); Hematocrit 33.7 % (39.6-49.0); Lymphocytes % 29.4 % (15.3-44.8); MCH 28.6 pg (27.0-35.0); MCV 86.1 fL (80-100); MPV 9.2 fL (7.6-11.3); Monocytes % 17.1 % (3.3-12.3); RBC Red Blood Cell Count 3.91 M/uL (4.33-5.43)
[2018-02-08] MEDS: PANTOPRAZOLE 40MG TABLET PO SCH (06:52)
[2018-02-08 06:57] LABS: ALT/SGPT 98 IU/L (10-60); AST/SGOT 131 IU/L (10-42); Albumin 2.7 g/dL (3.2-5.5); Alkaline Phosphatase 251 IU/L (42-121); BUN Blood Urea Nitrogen 7 mg/dL (6-20); Bicarbonate 29 mEq/L (21-31); Bilirubin Total 1.9 mg/dL (0.3-1.2); Glucose Level 117 mg/dL (65-120); Magnesium 1.8 mg/dL (1.8-2.5); Potassium 5.2 mEq/L (3.6-5.0); Protein, Total 6.1 g/dL (6.0-8.3); Sodium Level 134 mEq/L (135-145)
[2018-02-08] MEDS: INSULIN -REGULAR HUMAN 50 UNIT/0.5 ML ML SQ SCH ×4 (07:30→20:50)
[2018-02-08 07:35] LABS: Blood Morphology Comment NOT SEEN (NOT SEEN); Platelet Estimate ADEQ; Urine White Blood Cell Casts OK
[2018-02-08] MEDS ORDERED: MAGNESIUM SULFATE 1 gm IVPB 1 GM/100 ML BAG IV ONE (08:00)
[2018-02-08] MEDS: LISINOPRIL 10 MG TAB PO SCH (08:40)
[2018-02-08] MEDS: CIPROFLOXACIN 400mg IV 400 MG/200 ML BAG IV SCH ×2 (08:41→20:06)
[2018-02-08] MEDS: SODIUM CHLORIDE 1 GM TAB PO SCH ×2 (08:41→17:05)
[2018-02-08] MEDS ORDERED: HYDRALAZINE HCL 20 MG/ML VIAL IV PRN (12:30)
[2018-02-08] MEDS ORDERED: SOD POLYSTYREN SUL 15 GM/60 ML UCUP PO ONE (13:00)
[2018-02-08] MEDS: ENOXAPARIN 40 MG/0.4 ML SQ SCH (17:04)
--- NOTE | 2018-02-08 17:56 | PN ---
Subjective: The patient currently is sitting on bed. He is doing well. He is able to tolerate his diet fine. No fever. No chills. He continues to have some abdominal pain, but it is milder. Objective: Vital Signs: Blood pressure is 132/84, respiratory rate 18, pulse 60, temperature 98.2. General: The patient is alert and oriented on x3. Does not look in any distress. HEENT: Atraumatic, normocephalic. PERRLA. Oral mucosa is moist. Neck: Supple. No JVD. No carotid bruits. Chest: Clear to auscultation. Good air entry. Heart: Regular rate and rhythm. S1, S2 normal. No gallop or murmur. Abdomen: Minimal tenderness diffusely mostly on the left lower quadrant. Extremities: No clubbing, cyanosis, or edema. No calf tenderness. Neurologic: Grossly intact. Laboratory Data: Labs today showed CBC with white blood cells of 7.3, hemoglobin 11.2, platelets 146 . PT/INR was normal. Chemistry within normal except for sodium 134 up from 123, potassium 5.2. Eben irubin is down to 1.9. ALT at 131, AST of 98, alkaline phosphatase of 251. Assessment And Plan: 1.Acute colitis, continue to improve. The patient is tolerating a diet, but liver function tests st ill high. I will continue IV antibiotics for 1 more day and hopefully if tomorrow bilirubin was down to close to normal and GI okay with that, we will be able to discharge patient on oral antibiotics. 2.Hyponatremia was severe, but resolved today. Sodium is up to 134. We will observe. The patient on sodium tablet. If he continues to improve, we could stop that tomorrow. 3.Elevated transaminases, etiology I am not sure, but they are improving, so I will not order abdomi nal ultrasound today. 4.Hepatitis profile was negative. 5.Hypertension, better controlled with lisinopril 20 that I increased from yesterday. Continue p.r. n. hydralazine. 6.Hypomagnesemia. We will need to place IV. 7.Continue DVT prophylaxis with Lovenox. 8.Hyperkalemia. I will start the patient on a dose of Kayexalate today. BERNICE/ALCIDES Voice ID: [id number] Report ID: [id number]
[2018-02-09] MEDS: METRONIDAZOLE 500mg IVPB 500 MG/100 ML BAG IV SCH ×3 (00:51→12:00)
[2018-02-09 04:39] LABS: BUN Blood Urea Nitrogen 9 mg/dL (6-20); Bicarbonate 31 mEq/L (21-31); Glucose Level 118 mg/dL (65-120); Potassium 5.3 mEq/L (3.6-5.0); Sodium Level 134 mEq/L (135-145)
[2018-02-09 04:48] LABS: Magnesium 1.6 mg/dL (1.8-2.5)
[2018-02-09] MEDS ORDERED: MAGNESIUM SULFATE 1 gm IVPB 1 GM/100 ML BAG IV ONE (05:00)
[2018-02-09] MEDS: PANTOPRAZOLE 40MG TABLET PO SCH (05:38)
[2018-02-09] MEDS: INSULIN -REGULAR HUMAN 50 UNIT/0.5 ML ML SQ SCH ×2 (07:30→11:30)
[2018-02-09 08:24] VITALS: BP 167/89; TEMP 98.1
[2018-02-09] MEDS: SODIUM CHLORIDE 1 GM TAB PO SCH (08:26)
[2018-02-09] MEDS: LISINOPRIL 10 MG TAB PO SCH (08:26)
[2018-02-09] MEDS: CIPROFLOXACIN 400mg IV 400 MG/200 ML BAG IV SCH (08:27)
[2018-02-09 09:38] LABS: Albumin 2.6 g/dL (3.2-5.5); Bilirubin Direct 0.6 mg/dL (0-0.2); Bilirubin Total 1.6 mg/dL (0.3-1.2); Protein, Total 7.2 g/dL (6.0-8.3)
[2018-02-09 10:34] LABS: A1c Component 0.53 mg/dL; Hemoglobin A1c 6.1 % (4-6.0)
[2018-02-09 11:25] VITALS: O2SAT 97
--- NOTE | 2018-02-09 17:47 | P.DS ---
Admission Date: 02/03/18 Discharge Date: 02/09/18 Primary Care Provider: None Disposition: ROUTINE DISCHARGE Discharge Condition: GOOD Reason for Admission: Abd pain Consultations: GI - Problems (1) Colitis Onset Date: 02/04/18 Status: Acute (2) Elevated transaminase level Onset Date: 02/04/18 Status: Acute (3) HTN (hypertension) Onset Date: 02/04/18 Status: Chronic Qualifiers: Hypertension type: essential hypertension Qualified Code(s): I10 - Essential (primary) hypertension Brief History of Present Illness: This is a 57-year-old male with significant past medical history of hypertension who presented to the ED complaining of having some diffuse abdominal pain nausea vomiting and watery diarrhea. Patient stated that his symptoms have been going on for about 1 week and a half and has been getting progressively worse. He has not been able to keep anything down other than soup at night time which he eventually throws up in the morning. Patient states that in the morning he starts having some dry heaving and then noticed that he cough off all blood. Patient says that he has not had similar episodes in the past and is the 1st time that he noticed the abdominal pain. Patient is not followup with a primary care provider or does not have any GI doctor. Patient is states that he takes about 1-2 alcoholic beverages at night time mostly beer. Hospital Course: Overall during the hospital course patient remained stable The patient initially was admitted to the hospital for abdominal pain nausea vomiting and diarrhea. Had abd CT which was consistent with Colitis. The patient also had elevated LFT's and hypoalbuminemia which is most likely consistent with liver cirrhosis which is worse due to dehydration. Patient was initially started on IV Cipro and Flagyl and had a clear liquid diet here in the hospital. Patient remained on IV fluids. However date the patient did well and was able to tolerate diet well. Denies any nausea vomiting or diarrhea. Patient thus was advanced to a regular diet. Patient's LFTs however remained elevated here in the hospital this patient was kept until the T bilirubin was within normal limits. Today patient T bilirubin was 1.6 along with AST and ALT are also markedly low from the beginning and this patient was discharged home under stable condition. GI was consulted while patient was here in the hospital and agreed with the above plan and recommended the patient have an outpatient colonoscopy done once he is discharged from here and have his acute illness is resolved. Patient thus was given a followup appointment with GI as well. The patient was to follow up with primary care doctor in 2 weeks and GI in 2 weeks. Patient was to take p.o. Cipro and Flagyl for total of 10 days. Abstain from alcohol as well. Vital Signs/Physical Exam: Temp Pulse Resp BP Pulse Ox 98.1 F 84 16 167/89 H 97 02/09/18 08:00 02/09/18 08:26 02/09/18 08:00 02/09/18 08:26 02/09/18 08:00 General: Alert, In no apparent distress HEENT: Atraumatic, PERRLA, EOMI, Scleral icterus Neck: Supple, JVD not distended Respiratory: Clear to auscultation bilaterally, Normal air movement Cardiovascular: Regular rate/rhythm, Normal S1 S2 Gastrointestinal: Normal bowel sounds, No tenderness Musculoskeletal: No tenderness Integumentary: No rashes Neurological: Normal speech, Normal tone, Normal affect Lymphatics: No axilla or inguinal lymphadenopathy Laboratory Data at Discharge: WBC 7.3 K/uL (4.3-10.9) D 02/08/18 05:50 Hgb 11.2 g/dL (13.6-17.9) L 02/08/18 05:50 Hct 33.7 % (39.6-49.0) L 02/08/18 05:50 Plt Count 146 K/uL (152-406) L D 02/08/18 05:50 PT 10.4 SECONDS (9.5-12.5) 02/04/18 04:29 INR 0.88 02/04/18 04:29 APTT 26.4 SECONDS (24.3-36.9) 02/04/18 04:29 Sodium 134 mEq/L (135-145) L 02/09/18 03:55 Potassium 5.3 mEq/L (3.6-5.0) H 02/09/18 03:55 BUN 9 mg/dL (6-20) 02/09/18 03:55 Creatinine 0.82 mg/dL (0.61-1.24) 02/09/18 03:55 Glucose 118 mg/dL (65-120) 02/09/18 03:55 Phosphorus 3.5 mg/dL (2.5-4.3) 02/04/18 04:29 Magnesium 1.6 mg/dL (1.8-2.5) L 02/09/18 03:55 Total Bilirubin 1.6 mg/dL (0.3-1.2) H 02/09/18 08:42 AST 114 IU/L (10-42) H 02/09/18 08:42 ALT 97 IU/L (10-60) H 02/09/18 08:42 Alkaline Phosphatase 232 IU/L (42-121) H 02/09/18 08:42 Lipase 49 U/L (22-51) 02/03/18 12:40 Home Medications: Ciprofloxacin HCl [Cipro 500 MG Tablet] 500 mg PO DAILY #10 tab 02/09/18 Lisinopril [Prinivil*] 10 mg PO DAILY #30 tab 02/09/18 Metronidazole [Flagyl] 500 mg PO Q8H #30 tablet 02/09/18 New Medications: Ciprofloxacin HCl [Cipro 500 MG Tablet] 500 mg PO DAILY #10 tab Lisinopril [Prinivil*] 10 mg PO DAILY #30 tab Metronidazole [Flagyl] 500 mg PO Q8H #30 tablet Patient Discharge Instructions: Please f/u with GI in 1 week for Elevated Transaminase and cirrohis. New medication. Ciprofloxacin and Flagyl for 10 days. Please refrain from using Alcohol at home. Followup: Yohannes Tatum MD [ACTIVE - CAN ADMIT] - 1 Week (call to schedule an appointment)
== END 2018-02-09 13:50 | disposition home or self-care (01) | DRG 392 ==
LOC: ER 09:48 → ERHOLD 15:31 → 4TH 19:12
PROVIDERS: ADMIT Family Medicine; ATTEND Family Medicine
DX: K52.9 Noninfective gastroenteritis and colitis, unspecified (principal); R17 Unspecified jaundice; E87.1 Hypo-osmolality and hyponatremia; F10.20 Alcohol dependence, uncomplicated; I10 Essential (primary) hypertension; E88.09 Other disorders of plasma-protein metabolism, not elsewhere classified; E83.42 Hypomagnesemia; E87.5 Hyperkalemia; R74.0 Nonspecific elevation of levels of transaminase and lactic acid dehydrogenase [LDH]; Z72.0 Tobacco use
CPT/HCPCS: 36415; 74177; 80048; 80053; 80074; 80076; 80307; 80329; 81003; 81015; 82274; 82705; 82962; 83036; 83690; 83735; 84100; 84484; 85025; 85610; 85730; 87045; 87046; 87177; 87209; 87493; 93005; 96361; 96365; 96368; 96375; 99285; J0360; J0744; J1650; J2405; J3475; J7030; Q9967

== ENCOUNTER 2018-02-24 08:25 | Emergency (ER) | payer SELFPAY ==
[2018-02-24] MEDS ORDERED: NA CHLORIDE 0.9% 1,000 ML ONE (08:48)
[2018-02-24] MEDS ORDERED: MORPHINE 4 MG/ML SYR ONE (09:12)
[2018-02-24] MEDS ORDERED: ENOXAPARIN 100 MG/ML SYR SQ ONE (09:12)
[2018-02-24] MEDS ORDERED: FAMOTIDINE 20 MG/2 ML VIAL IV ONE (09:12)
[2018-02-24 09:13] LABS: Absolute Lymphocytes (CBC) 1.7 K/uL (0.7-4.9); Absolute Neutrophil 4.9 K/uL (1.8-8.0); Basophils % 1.1 % (0-1.3); Eosinophils % 2.1 % (0-4.4); Hematocrit 34.5 % (39.6-49.0); Lymphocytes % 22.1 % (15.3-44.8); MCH 30.2 pg (27.0-35.0); MCV 86.7 fL (80-100); MPV 7.8 fL (7.6-11.3); Monocytes % 12.8 % (3.3-12.3); RBC Red Blood Cell Count 3.98 M/uL (4.33-5.43)
[2018-02-24] MEDS ORDERED: CIPROFLOXACIN 400mg IV 400 MG/200 ML BAG IV ONE (09:13)
[2018-02-24] MEDS ORDERED: METRONIDAZOLE 500mg IVPB 500 MG/100 ML BAG IV ONE (09:13)
[2018-02-24] MEDS ORDERED: ONDANSETRON 4 MG/2 ML VIAL ONE (09:13)
[2018-02-24 09:21] LABS: Protime INR 0.93
--- NOTE | 2018-02-24 09:25 | RAD REPORT ---
EXAM DESCRIPTION: RAD - Chest Single View - 02/24/2018 8:56 am CLINICAL HISTORY: Chest pain. COMPARISON: 02/03/2018 FINDINGS: Portable technique limits examination quality. The lungs are grossly clear. The heart is normal in size. No displaced fractures. IMPRESSION: No acute intrathoracic process suspected.
[2018-02-24 09:31] LABS: Bicarbonate 28 mEq/L (21-31); Glucose Level 111 mg/dL (65-120); Lipase 33 U/L (22-51); Potassium 4.2 mEq/L (3.6-5.0); Sodium Level 136 mEq/L (135-145)
[2018-02-24 09:37] LABS: ALT/SGPT 20 IU/L (10-60); AST/SGOT 22 IU/L (10-42); Albumin 3.8 g/dL (3.2-5.5); Alkaline Phosphatase 172 IU/L (42-121); BUN Blood Urea Nitrogen 16 mg/dL (6-20); Bilirubin Direct 0.2 mg/dL (0-0.2); Bilirubin Total 0.6 mg/dL (0.3-1.2); Creatine Phosphokinase 42 IU/L (22-269); Magnesium 1.7 mg/dL (1.8-2.5); Protein, Total 7.6 g/dL (6.0-8.3)
[2018-02-24 09:38] LABS: CKMB Creatine Kinase MB 1.2 ng/ml (0.3-4.0)
--- NOTE | 2018-02-24 09:55 | EDPHYS ---
Physician Documentation [facility] Name: Wilver Mejia Age: 57 yrs Sex: Male : 1960 Arrival Date: 02/24/2018 Time: 08:27 Bed 6 Private MD: ED Physician Nestor Schneider HPI: 02/24 09:01 This 57 yrs old Male presents to ER via Ambulatory with complaints of rhiannon Abdominal Pain. 09:01 The patient presents with abdominal pain in the right upper quadrant, right lower rhiannon quadrant. Onset: The symptoms/episode began/occurred 2 day(s) ago. The patient presents to the emergency department with diarrhea, abdominal pain, of the right upper quadrant and right lower quadrant. Onset: The symptoms/episode began/occurred 2 day(s) ago. Possible causes: unknown. The symptoms are aggravated by nothing. The symptoms are alleviated by nothing. Associated signs and symptoms: The patient has no apparent associated signs or symptoms. The symptoms do not radiate. Associated signs and symptoms: none. The symptoms are described as crampy, stabbing. Modifying factors: The symptoms are alleviated by nothing, the symptoms are aggravated by nothing. Historical: - Allergies: 08:42 No Known Drug Allergies; tw2 - Home Meds: 08:42 hydrochlorothiazide 25 mg Oral tab 1 tab once daily [Active]; tw2 - PMHx: 08:42 Hypertension; tw2 - PSHx: 08:42 Appendectomy; Cholecystectomy; tw2 - Immunization history:: Adult Immunizations up to date. - Family history:: not pertinent. - Social history:: Smoking status: Patient uses tobacco products, smokes one pack cigarettes per day. ROS: 09:01 Constitutional: Negative for fever, chills, and weight loss, Eyes: Negative for injury, rhiannon pain, redness, and discharge, ENT: Negative for injury, pain, and discharge, Neck: Negative for injury, pain, and swelling, Cardiovascular: Negative for chest pain, palpitations, and edema, Respiratory: Negative for shortness of breath, cough, wheezing, and pleuritic chest pain, Back: Negative for injury and pain, : Negative for injury, bleeding, discharge, and swelling, MS/Extremity: Negative for injury and deformity, Skin: Negative for injury, rash, and discoloration, Neuro: Negative for headache, weakness, numbness, tingling, and seizure, Psych: Negative for depression, anxiety, suicide ideation, homicidal ideation, and hallucinations, Allergy/Immunology: Negative for hives, rash, and allergies, Endocrine: Negative for neck swelling, polydipsia, polyuria, polyphagia, and marked weight changes, Hematologic/Lymphatic: Negative for swollen nodes, abnormal bleeding, and unusual bruising. 09:01 Abdomen/GI: Positive for abdominal pain, nausea, diarrhea, abdominal cramps, of the right upper quadrant and right lower quadrant. Exam: 09:01 Constitutional: This is a well developed, well nourished patient who is awake, alert, rhiannon and in no acute distress. Head/Face: Normocephalic, atraumatic. Eyes: Pupils equal round and reactive to light, extra-ocular motions intact. Lids and lashes normal. Conjunctiva and sclera are non-icteric and not injected. Cornea within normal limits. Periorbital areas with no swelling, redness, or edema. ENT: Nares patent. No nasal discharge, no septal abnormalities noted. Tympanic membranes are normal and external auditory canals are clear. Oropharynx with no redness, swelling, or masses, exudates, or evidence of obstruction, uvula midline. Mucous membranes moist. Neck: Trachea midline, no thyromegaly or masses palpated, and no cervical lymphadenopathy. Supple, full range of motion without nuchal rigidity, or vertebral point tenderness. No Meningismus. Chest/axilla: Normal chest wall appearance and motion. Nontender with no deformity. No lesions are appreciated. Respiratory: Lungs have equal breath sounds bilaterally, clear to auscultation and percussion. No rales, rhonchi or wheezes noted. No increased work of breathing, no retractions or nasal flaring. Back: No spinal tenderness. No costovertebral tenderness. Full range of motion. Male : Normal genitalia with no discharge or lesions. Skin: Warm, dry with normal turgor. Normal color with no rashes, no lesions, and no evidence of cellulitis. MS/ Extremity: Pulses equal, no cyanosis. Neurovascular intact. Full, normal range of motion. Neuro: Awake and alert, GCS 15, oriented to person, place, time, and situation. Cranial nerves II-XII grossly intact. Motor strength 5/5 in all extremities. Sensory grossly intact. Cerebellar exam normal. Normal gait. Psych: Awake, alert, with orientation to person, place and time. Behavior, mood, and affect are within normal limits. 09:01 Cardiovascular: Rate: 09:01 Cardiovascular: Rate: tachycardic, Rhythm: regular, Pulses: Pulses are 4+ in bilateral radial, brachial, femoral, popliteal, posterior tibial and and dorsalis pedis arteries.. Heart sounds: normal, normal S1and S2, no S3 or S4, no murmur, no rub, no gallop, Edema: is not appreciated, JVD: is not appreciated. Vital Signs: 08:40 BP 180 / 91; Pulse 103; Resp 18; Temp 98.3; Pulse Ox 97% on R/A; Weight 91.17 kg (R); tw2 Height 6 ft. 3 in. (190.50 cm) (R); Pain 6/10; 09:54 BP 169 / 92; Pulse 95; Resp 17; Pulse Ox 97% on R/A; Pain 4/10; tw2 11:28 BP 169 / 92; Pulse 92; Resp 18; Pulse Ox 97% on R/A; Pain 3/10; tw2 08:40 Body Mass Index 25.12 (91.17 kg, 190.50 cm) tw2 MDM: 08:38 Patient medically screened. [facility] 09:05 Data reviewed: vital signs, nurses notes, lab test result(s), EKG, radiologic studies, [facility] CT scan, plain films. 05 08:39 Order name: Basic Metabolic Panel; Complete Time: 10:05 [facility] 02/24 08:39 Order name: BNP; Complete Time: 10:05 [facility] 02/24 08:39 Order name: CBC with Diff; Complete Time: 09:31 [facility] 02/24 08:39 Order name: Ckmb; Complete Time: 10:05 [facility] 02/24 08:39 Order name: CPK; Complete Time: 10:05 [facility] 02/24 08:39 Order name: LFT's; Complete Time: 10:05 [facility] 02/24 08:39 Order name: Magnesium; Complete Time: 10:05 [facility] 02/24 08:39 Order name: PT-INR; Complete Time: 09:31 [facility] 02/24 08:39 Order name: Ptt, Activated; Complete Time: 09:31 [facility] 02/24 08:39 Order name: Troponin (emerg Dept Use Only); Complete Time: 10:05 [facility] 02/24 08:39 Order name: XRAY Chest (1 view); Complete Time: 09:31 [facility] 02/24 08:39 Order name: Lipase; Complete Time: 10:05 [facility] 02/24 10:47 Order name: Urine Dipstick--Ancillary (enter results) 02/24 10:48 Order name: Urine Dipstick-Ancillary EDMS 02/24 08:39 Order name: EKG; Complete Time: 08:40 [facility] 02/24 08:39 Order name: Cardiac monitoring; Complete Time: 08:43 [facility] 02/24 08:39 Order name: EKG - Nurse/Tech; Complete Time: 08:43 [facility] 02/24 08:39 Order name: IV Saline Lock; Complete Time: 09:24 [facility] 02/24 08:39 Order name: Labs collected and sent; Complete Time: 09:24 [facility] 02/24 08:39 Order name: O2 Per Protocol; Complete Time: 08:43 [facility] 02/24 09:06 Order name: US Extremity Venou Bilateral [facility] 02/24 08:39 Order name: O2 Sat Monitoring; Complete Time: 08:43 [facility] Administered Medications: 09:06 Drug: NS 0.9% 1000 ml Route: IV; Rate: 1 bolus; Site: left forearm; tw2 10:00 Follow up: Response: No adverse reaction; IV Status: Completed infusion; IV Intake: tw2 1000ml 09:12 Drug: Lovenox 1 mg/kg Route: Sub-Q; Site: right lower abdomen; tw2 10:00 Follow up: Response: No adverse reaction tw2 09:13 Drug: Pepcid 20 mg Route: IVP; Site: left forearm; tw2 10:00 Follow up: Response: No adverse reaction tw2 09:16 Drug: Zofran 4 mg Route: IVP; Site: left forearm; tw2 10:00 Follow up: Response: No adverse reaction; Nausea is decreased tw2 09:18 Drug: morphine 4 mg Route: IVP; Site: left forearm; tw2 10:00 Follow up: Response: No adverse reaction; Pain is decreased tw2 09:22 Drug: Flagyl 500 mg Volume: 100 ml; Route: IVPB; Rate: 200 ml/hr; Infused Over: 30 tw2 mins; Site: left forearm; 09:55 Follow up: Response: No adverse reaction; IV Status: Completed infusion tw2 09:23 Drug: Cipro 400 mg Volume: 200 ml; Route: IVPB; Infused Over: 60 mins; Site: left tw2 forearm; 10:25 Follow up: Response: No adverse reaction; IV Status: Completed infusion tw2 10:25 Drug: Magnesium Sulfate 1 grams Route: IVPB; Infused Over: 1 hrs; Site: left forearm; tw2 10:25 Follow up: Response: No adverse reaction; IV Status: Completed infusion tw2 11:28 Follow up: Response: No adverse reaction; IV Status: Completed infusion tw2 10:25 Drug: Thiamine 100 mg Route: IV; Rate: bolus; Site: left forearm; tw2 10:27 Follow up: Response: No adverse reaction; IV Status: Completed infusion tw2 Disposition: 02/24/18 10:03 Discharged to Home. Impression: Infectious gastroenteritis and colitis, unspecified. - Condition is Stable. - Discharge Instructions: Food Choices to Help Relieve Diarrhea, Adult, Clear Liquid Diet, Viral Gastroenteritis, Diarrhea, [id number]. - Work release form, Medication Reconciliation Form, Thank You Letter, Antibiotic Education, Prescription Opioid Use form. - Follow up: Yon Trevino MD; When: 1 - 2 days. - Problem is chronic. - Symptoms have improved. Signatures: Dispatcher [employer] EDNestor Michel MD MD cha Wise, Tara, RN RN tw2 Sasha Swan MD MD rp3 Corrections: (The following items were deleted from the chart) 10:01 09:55 Hospitalization Ordered by Sasha Swan MD for Inpatient Admission. Preliminary rhiannon diagnosis is Abdominal tenderness; Vomiting; Diarrhea, unspecified. Bed requested for Telemetry/MedSurg (Inpatient). Status is Inpatient Admission. Condition is Stable. Problem is new. Symptoms have improved. UTI on Admission? No. rhiannon 11:29 10:03 02/24/2018 10:03 Discharged to Home. Impression: Infectious gastroenteritis and tw2 colitis, unspecified. Condition is Stable. Forms are Medication Reconciliation Form, Thank You Letter, Antibiotic Education, Prescription Opioid Use. Follow up: Yon Trevino; When: 1 - 2 days. Problem is chronic. Symptoms have improved. rp3
--- NOTE | 2018-02-24 09:55 | ER ---
Nurse's Notes [facility] Name: Wilver Mejia Age: 57 yrs Sex: Male : 1960 Arrival Date: 02/24/2018 Time: 08:27 Bed 6 Private MD: Diagnosis: Infectious gastroenteritis and colitis, unspecified Presentation: 02/24 08:39 Presenting complaint: Patient states: I was here in January with colitis and it hurts the tw2 same again, started pain yesterday and then this morning V/D. Transition of care: patient was not received from another setting of care. Onset of symptoms was February 24, 2018. Initial Sepsis Screen: Does the patient meet any 2 criteria? No. Patient's initial sepsis screen is negative. Does the patient have a suspected source of infection? No. Patient's initial sepsis screen is negative. Care prior to arrival: None. 08:39 Method Of Arrival: Ambulatory tw2 08:39 Acuity: NADEEN 3 tw2 Historical: - Allergies: 08:42 No Known Drug Allergies; tw2 - Home Meds: 08:42 hydrochlorothiazide 25 mg Oral tab 1 tab once daily [Active]; tw2 - PMHx: 08:42 Hypertension; tw2 - PSHx: 08:42 Appendectomy; Cholecystectomy; tw2 - Immunization history:: Adult Immunizations up to date. - Family history:: not pertinent. - Social history:: Smoking status: Patient uses tobacco products, smokes one pack cigarettes per day. Screenin:30 Abuse screen: Denies threats or abuse. Nutritional screening: No deficits noted. tw2 Tuberculosis screening: No symptoms or risk factors identified. Fall Risk None identified. Assessment: 08:40 General: Appears in no apparent distress. Behavior is calm, cooperative, appropriate tw2 for age. Pain: Complains of pain in right lower quadrant and right upper quadrant. Neuro: Level of Consciousness is awake, alert, obeys commands, Oriented to person, place, time, situation. Cardiovascular: Denies chest pain, shortness of breath, Heart tones S1 S2 Capillary refill < 3 seconds Patient's skin is warm and dry. Respiratory: Airway is patent Respiratory effort is even, unlabored, Respiratory pattern is regular, symmetrical, Breath sounds are clear bilaterally. GI: Bowel sounds present X 4 quads. Abd is soft X 4 quads Abdomen is tender to palpation in right lower quadrant and left lower quadrant Reports lower abdominal pain, diarrhea, nausea. : No signs and/or symptoms were reported regarding the genitourinary system. EENT: No signs and/or symptoms were reported regarding the EENT system. Derm: Skin is intact, is healthy with good turgor, Skin temperature is warm. Musculoskeletal: Range of motion: intact in all extremities. 09:28 Reassessment: pt taken via stretcher to US at this time. NAD, not available for vs. tw2 09:55 Reassessment: Patient appears in no apparent distress at this time. Patient and/or tw2 family updated on plan of care and expected duration. Pain level reassessed. Patient is alert, oriented x 3, equal unlabored respirations, skin warm/dry/pink. Patient states feeling better. 09:55 Reassessment: Dr. Swan at bedside at this time. tw2 10:37 Reassessment: Patient appears in no apparent distress at this time. Patient and/or tw2 family updated on plan of care and expected duration. Pain level reassessed. Patient is alert, oriented x 3, equal unlabored respirations, skin warm/dry/pink. Patient states feeling better. 11:28 Reassessment: Patient appears in no apparent distress at this time. Patient and/or tw2 family updated on plan of care and expected duration. Pain level reassessed. Patient is alert, oriented x 3, equal unlabored respirations, skin warm/dry/pink. Patient states feeling better. Vital Signs: 08:40 BP 180 / 91; Pulse 103; Resp 18; Temp 98.3; Pulse Ox 97% on R/A; Weight 91.17 kg (R); tw2 Height 6 ft. 3 in. (190.50 cm) (R); Pain 6/10; 09:54 BP 169 / 92; Pulse 95; Resp 17; Pulse Ox 97% on R/A; Pain 4/10; tw2 11:28 BP 169 / 92; Pulse 92; Resp 18; Pulse Ox 97% on R/A; Pain 3/10; tw2 08:40 Body Mass Index 25.12 (91.17 kg, 190.50 cm) tw2 ED Course: 08:27 Patient arrived in ED. rg4 08:38 Nestor Schneider MD is Attending Physician. rhiannon 08:39 Strong, Summer, RN is Primary Nurse. tw2 08:40 Triage completed. tw2 08:40 Arm band placed on. tw2 08:40 Bed in low position. Call light in reach. Side rails up X 1. quality assurance monitor body on. Pulse tw2 ox on. NIBP on. 08:48 X-ray completed. Portable x-ray completed in exam room. Patient tolerated procedure sw well. 08:55 X-ray completed. sw 08:55 No provider procedures requiring assistance completed. Inserted saline lock: 20 gauge tw2 in right antecubital area, using aseptic technique. Blood collected. Inserted saline lock: 20 gauge in left forearm, using aseptic technique. 08:57 XRAY Chest (1 view) In Process Unspecified. EDMS 09:13 Note: waiting for dr to call back for venous doppler clarification. hr 09:28 Patient taken to ultrasound. via wheelchair. hr 09:36 US Extremity Venou Bilateral In Process Unspecified. EDMS 09:46 Ultrasound completed. Patient tolerated well. hr 09:46 Patient moved back from ultrasound. hr 09:53 Sasha Swan MD is Hospitalizing Provider. rhiannon 10:01 Sasha Swan MD mold making plastics sheets supervisor. rp3 10:01 Yon Trevino MD is Referral Physician. rp3 10:11 Awaiting: COMPLETION OF IV MEDICATION PRIOR TO DISCHARGE. tw2 11:18 EKG done, by wind energy technician. reviewed by Nestor Schneider MD. at1 11:28 IV discontinued, intact, bleeding controlled, No redness/swelling at site. Pressure tw2 dressing applied. Administered Medications: 09:06 Drug: NS 0.9% 1000 ml Route: IV; Rate: 1 bolus; Site: left forearm; tw2 10:00 Follow up: Response: No adverse reaction; IV Status: Completed infusion; IV Intake: tw2 1000ml 09:12 Drug: Lovenox 1 mg/kg Route: Sub-Q; Site: right lower abdomen; tw2 10:00 Follow up: Response: No adverse reaction tw2 09:13 Drug: Pepcid 20 mg Route: IVP; Site: left forearm; tw2 10:00 Follow up: Response: No adverse reaction tw2 09:16 Drug: Zofran 4 mg Route: IVP; Site: left forearm; tw2 10:00 Follow up: Response: No adverse reaction; Nausea is decreased tw2 09:18 Drug: morphine 4 mg Route: IVP; Site: left forearm; tw2 10:00 Follow up: Response: No adverse reaction; Pain is decreased tw2 09:22 Drug: Flagyl 500 mg Volume: 100 ml; Route: IVPB; Rate: 200 ml/hr; Infused Over: 30 tw2 mins; Site: left forearm; 09:55 Follow up: Response: No adverse reaction; IV Status: Completed infusion tw2 09:23 Drug: Cipro 400 mg Volume: 200 ml; Route: IVPB; Infused Over: 60 mins; Site: left tw2 forearm; 10:25 Follow up: Response: No adverse reaction; IV Status: Completed infusion tw2 10:25 Drug: Magnesium Sulfate 1 grams Route: IVPB; Infused Over: 1 hrs; Site: left forearm; tw2 10:25 Follow up: Response: No adverse reaction; IV Status: Completed infusion tw2 11:28 Follow up: Response: No adverse reaction; IV Status: Completed infusion tw2 10:25 Drug: Thiamine 100 mg Route: IV; Rate: bolus; Site: left forearm; tw2 10:27 Follow up: Response: No adverse reaction; IV Status: Completed infusion tw2 Intake: 10:00 IV: 1000ml; Total: 1000ml. tw2 Outcome: 09:55 Decision to Hospitalize by Provider. rhiannon 10:03 Discharge ordered by . rp3 11:28 Discharged to home ambulatory. tw2 11:28 Condition: stable 11:28 Discharge instructions given to patient, Instructed on discharge instructions, follow up and referral plans. Demonstrated understanding of instructions, follow-up care. 11:29 Patient left the ED. tw2 Signatures: Dispatcher [employer] EDNestor Michel MD MD cha Rod, Haley hr gonzales, Amanda, process steward EKG Tat1 Zhane Bergman Tara, RN RN tw2 Briana Beavers4 Sasha Swan MD MD rp3 Corrections: (The following items were deleted from the chart) 10:37 09:54 Pulse 95bpm; Resp 17bpm; Pulse Ox 97% RA; Pain 4/10; tw2 tw2
[2018-02-24] MEDS ORDERED: THIAMINE 200 MG/2 ML INJ ONE (10:08)
[2018-02-24] MEDS ORDERED: MAGNESIUM SULFATE 1 gm IVPB 1 GM/100 ML BAG IV ONE (10:09)
--- NOTE | 2018-02-24 10:40 | RAD REPORT ---
EXAM DESCRIPTION: VAS - Extrem Venous W Compress Eben - 02/24/2018 9:36 am CLINICAL HISTORY: Bilateral leg edema and swelling. COMPARISON: None. TECHNIQUE: Real-time sonographic interrogation of the left and right lower extremity deep venous sys tems was performed. FINDINGS: Normal compressibility, flow augmentation, phasic flow and spontaneous flow is identified in both the left and right lower extremity deep venous systems. IMPRESSION: No sonographic evidence of left or right lower extremity deep venous thrombosis.
[2018-02-24 11:35] VITALS: TEMP 98.3; O2SAT 97
[2018-02-24 11:37] VITALS: BP 169/92
--- NOTE | 2018-02-24 11:54 | EKG ---
Test Date: 2018-02-24 Test Time: 10:37:59 [facility]: [facility] MEASUREMENT RESULTS: Intervals: Rate: 85 VT: 142 QRSD: 96 QT: 372 QTc: 442 [place]: P: 56 VT: 142 QRS: 69 T: 61 INTERPRETIVE STATEMENTS: Normal sinus rhythm Normal ECG Compared to ECG 02/03/2018 11:12:10 No significant changes Electronically Signed On 02-24-18 11:53:59 CDT by Maikol Roland
[2018-02-24 13:14] LABS: Urine Blood NEGATIVE (NEG); Urine Glucose NEGATIVE (NEG); Urine Protein NEGATIVE (NEG); Urine Specific Gravity 1.015 (1.005-1.030)
== END 2018-02-24 11:29 | disposition home or self-care (01) ==
LOC: ER 08:25
DX: A09 Infectious gastroenteritis and colitis, unspecified (principal); I10 Essential (primary) hypertension; F17.210 Nicotine dependence, cigarettes, uncomplicated
CPT/HCPCS: 36415; 71045; 80048; 80076; 81003; 82550; 82553; 83690; 83735; 83880; 84484; 85025; 85610; 85730; 93005; 93970; 96365; 96368; 96372; 96375; 99285; J0744; J1650; J2405; J3411; J3475; J7030

== ENCOUNTER 2018-03-09 08:44 | Emergency (ER) | payer SELFPAY ==
[2018-03-09] MEDS ORDERED: NA CHLORIDE 0.9% 1,000 ML ONE (09:32)
[2018-03-09] MEDS ORDERED: ONDANSETRON 4 MG/2 ML VIAL ONE (09:32)
[2018-03-09 09:51] LABS: Absolute Lymphocytes (CBC) 1.7 K/uL (0.7-4.9); Absolute Monocytes 0.6 K/uL (0.1-1.3); Absolute Neutrophil 4.8 K/uL (1.8-8.0); Basophils % 0.9 % (0-1.3); Eosinophils % 2.5 % (0-4.4); Lymphocytes % 22.9 % (15.3-44.8); MCH 30.9 pg (27.0-35.0); MCV 89.7 fL (80-100); MPV 7.5 fL (7.6-11.3); Monocytes % 7.8 % (3.3-12.3); RBC Red Blood Cell Count 4.57 M/uL (4.33-5.43)
[2018-03-09 10:00] LABS: Bicarbonate 27 mEq/L (21-31); Glucose Level 105 mg/dL (65-120); Lipase 32 U/L (22-51); Sodium Level 138 mEq/L (135-145)
[2018-03-09 10:06] LABS: ALT/SGPT 19 IU/L (10-60); AST/SGOT 25 IU/L (10-42); Albumin 4.2 g/dL (3.2-5.5); Alkaline Phosphatase 122 IU/L (42-121); BUN Blood Urea Nitrogen 17 mg/dL (6-20); Bilirubin Direct 0.1 mg/dL (0-0.2); Bilirubin Total 0.5 mg/dL (0.3-1.2); Protein, Total 8.3 g/dL (6.0-8.3)
--- NOTE | 2018-03-09 11:33 | RAD REPORT ---
EXAM DESCRIPTION: CT - Abdomen Pelvis W Contrast - 03/09/2018 11:24 am CLINICAL HISTORY: Abdominal pain, nausea and vomiting, prior appendectomy and cholecystectomy COMPARISON: CT February 03 TECHNIQUE: Biphasic, helical CT imaging of the abdomen and pelvis was performed following 100 ml non -ionic IV contrast. Oral contrast was given. All CT scans are performed using dose optimization technique as appropriate and may include automated exposure control or mA/KV adjustment according to patient size. FINDINGS: No suspicious findings in the lung bases. The liver, spleen, and pancreas show no suspicious findings. Cholecystectomy clips are present. No bi liary tree dilatation. Mild fatty infiltration of the liver is present appearing less pronounced ekaterina n the January study. Symmetric renal function is seen with no hydronephrosis or suspicious renal mass. No pyelonephritis o r acute renal parenchymal process. Urinary bladder, prostate and seminal vesicles within normal limit s. No gastric dilatation or gastric wall thickening. Oral contrast has reached the left-side of the perales sverse colon. No dilated small bowel loop or focal small bowel abnormality. There is questionable min imal wall thickening at the terminal ileum. From cecum to the hepatic flexure there is a mild wall th ickening and edema. This nonspecific mild colitis pattern is not substantially different from the com parison. No significant left side colon involvement. No significant atherosclerotic change at the mes enteric artery origins. Ischemia is not suspected. No free air, free fluid or pneumatosis. No significant inflammatory stranding of the right side col on nor elsewhere. No mass or bulky lymphadenopathy. Small fat only left inguinal hernia. No adrenal abnormality. No suspicious bony findings. IMPRESSION: Mild right-sided colon nonspecific colitis pattern. No mass, abscess or other complicati ng factor. Colitis pattern is not substantially different from January.
--- NOTE | 2018-03-09 11:54 | EDPHYS ---
Physician Documentation [facility] Name: Wilver Mejia Age: 57 yrs Sex: Male : 1960 Arrival Date: 03/09/2018 Time: 08:47 Bed 16 Private MD: ED Physician Felipe Jiménez HPI: 03/09 09:33 This 57 yrs old Male presents to ER via Ambulatory with complaints of rn Abdominal Pain, Headache. 09:34 The patient presents with abdominal pain that is diffuse. Onset: The symptoms/episode rn began/occurred yesterday. The symptoms do not radiate. Associated signs and symptoms: Pertinent positives: nausea and vomiting, diarrhea, Pertinent negatives: fever, hematuria, testicular pain, vomiting blood. Severity of pain: At its worst the pain was mild in the emergency department the pain is unchanged. The patient has experienced similar episodes in the past. The patient has not recently seen a physician. Historical: - Allergies: 08:54 No Known Drug Allergies; lk1 - PMHx: 08:54 Hypertension; lk1 - PSHx: 08:54 Appendectomy; Cholecystectomy; lk1 - Immunization history:: Adult Immunizations up to date. - Social history:: Smoking status: Patient uses tobacco products, smokes one-half pack cigarettes per day, Patient/guardian denies using alcohol. - Family history:: not pertinent. - Hospitalizations: : No recent hospitalization is reported. ROS: 09:34 Constitutional: Negative for fever, chills, and weight loss, Eyes: Negative for injury, rn pain, redness, and discharge, Cardiovascular: Negative for chest pain, palpitations, and edema, Respiratory: Negative for shortness of breath, cough, wheezing, and pleuritic chest pain, Abdomen/GI: + abd pain/nausea/vomiting/diarrhea MS/Extremity: Negative for injury and deformity, Skin: Negative for injury, rash, and discoloration, Neuro: Negative for numbness, tingling, and seizure. Exam: 09:34 Constitutional: This is a well developed, well nourished patient who is awake, alert, rn and in no acute distress. Head/Face: Normocephalic, atraumatic. Eyes: Pupils equal round and reactive to light, extra-ocular motions intact. Lids and lashes normal. Conjunctiva and sclera are non-icteric and not injected. Cornea within normal limits. Periorbital areas with no swelling, redness, or edema. Cardiovascular: Regular rate and rhythm with a normal S1 and S2. No gallops, murmurs, or rubs. Normal PMI, no JVD. No pulse deficits. Respiratory: Lungs have equal breath sounds bilaterally, clear to auscultation and percussion. No rales, rhonchi or wheezes noted. No increased work of breathing, no retractions or nasal flaring. Abdomen/GI: soft, mild tenderness in all quadrants, no rebound MS/ Extremity: Pulses equal, no cyanosis. Neurovascular intact. Full, normal range of motion. Equal circumference. Neuro: Awake and alert, GCS 15, oriented to person, place, time, and situation. Cranial nerves II-XII grossly intact. Motor strength 5/5 in all extremities. Sensory grossly intact. Vital Signs: 08:55 BP 148 / 93; Pulse 109; Resp 15; Temp 97.1(TE); Pulse Ox 97% ; Weight 90.72 kg (R); lk1 Height 6 ft. 3 in. (190.50 cm) (R); Pain 9/10; 09:51 BP 144 / 91; Pulse 92; Resp 16; Pulse Ox 98% ; jl7 11:37 BP 174 / 97; Pulse 88; Resp 16; Pulse Ox 98% ; jl7 08:55 Body Mass Index 25.00 (90.72 kg, 190.50 cm) lk1 MDM: 08:58 Patient medically screened. rn 11:52 Differential diagnosis: bowel obstruction, diverticulitis, gastritis, non-specific abd rn pain, pancreatitis, Peptic Ulcer Disease. Data reviewed: vital signs, nurses notes, lab test result(s), EKG, radiologic studies, CT scan, and as a result, I will discharge patient. Counseling: I had a detailed discussion with the patient and/or guardian regarding: the historical points, exam findings, and any diagnostic results supporting the discharge/admit diagnosis, lab results, radiology results, the need for outpatient follow up, to return to the emergency department if symptoms worsen or persist or if there are any questions or concerns that arise at home. Response to treatment: the patient's symptoms have mildly improved after treatment, and as a result, I will discharge patient. Special discussion: Based on the patient's Hx, exam, and Dx evaluation, there is no indication for emergent surgery or inpatient Tx. It is understood by the patient/guardian that if the Sx's persist or worsen they need to return immediately for re-evaluation. I discussed with the patient/guardian in detail that at this point there is no indication for admission to the hospital. It is understood, however, that if the symptoms persist or worsen the patient needs to return immediately for re-evaluation. Based on the presenting symptoms and work-up in the emergency department, I discussed in detail the need to arrange with the PCP or specialist an outpatient procedure, colonoscopy by the GI specialist, Based on the history and exam findings, there is no indication for further emergent testing or inpatient evaluation. I discussed with the patient/guardian the need to see the development scientist for further evaluation of the symptoms. 03/09 09:07 Order name: Basic Metabolic Panel; Complete Time: 10:15 rn 03/09 09:07 Order name: CBC with Diff; Complete Time: 10:15 rn 03/09 09:07 Order name: Hepatic Function; Complete Time: 10:15 rn 03/09 09:07 Order name: Lipase; Complete Time: 10:15 rn 03/09 09:07 Order name: CT Abd/Pelvis - W/Contrast; Complete Time: 11:37 rn 03/09 09:07 Order name: IV Saline Lock; Complete Time: 09:39 rn 03/09 09:07 Order name: Labs collected and sent; Complete Time: 09:39 rn Administered Medications: 09:37 Drug: NS 0.9% 1000 ml Route: IV; Rate: 1000 ml; Site: right antecubital; jl7 10:40 Follow up: IV Status: Completed infusion jl7 09:38 Drug: Zofran 4 mg Route: IVP; Site: right antecubital; jl7 10:30 Follow up: Response: No adverse reaction; Nausea is decreased jl7 12:08 Drug: Cipro 400 mg Volume: 200 ml; Route: IVPB; Infused Over: 60 mins; Site: right jl7 antecubital; 13:10 Follow up: IV Status: Completed infusion jl7 12:08 Drug: Flagyl 500 mg Volume: 100 ml; Route: IVPB; Rate: 200 ml/hr; Infused Over: 30 jl7 mins; Site: right antecubital; 12:40 Follow up: IV Status: Completed infusion jl7 Disposition: 03/09/18 11:54 Discharged to Home. Impression: Colitis. - Condition is Stable. - Discharge Instructions: Diarrhea, Nausea and Vomiting. - Prescriptions for Zofran ODT 4 mg Oral tablet,disintegrating - place 1 tablet by TRANSLINGUAL route every 8-10 hours As needed; 20 tablet. Cipro 500 mg Oral Tablet - take 1 tablet by ORAL route every 12 hours for 10 days; 20 tablet. Flagyl 500 mg Oral Tablet - take 1 tablet by ORAL route every 8 hours for 10 days; 30 tablet. Tylenol- Codeine #3 300-30 mg Oral Tablet - take 1 tablet by ORAL route every 6 hours As needed; 20 tablet. - Medication Reconciliation Form, Thank You Letter, Antibiotic Education, Prescription Opioid Use form. - Follow up: Yohannes aTtum MD; When: As needed; Reason: Recheck today's complaints, Re-evaluation by your physician. - Problem is new. - Symptoms have improved. Signatures: Dispatcher [employer] EDMS Felipe Jiménez MD MD rn Kluge, Leah, RN RN lk1 Harry Christian RN RN jl7 Corrections: (The following items were deleted from the chart) 13:34 11:54 03/09/2018 11:54 Discharged to Home. Impression: Colitis. Condition is Stable. jl7 Forms are Medication Reconciliation Form, Thank You Letter, Antibiotic Education, Prescription Opioid Use. Follow up: Yohannes Tatum; When: As needed; Reason: Recheck today's complaints, Re-evaluation by your physician. Problem is new. Symptoms have improved. rn
--- NOTE | 2018-03-09 11:54 | ER ---
Nurse's Notes [facility] Name: Wilver Mejia Age: 57 yrs Sex: Male : 1960 Arrival Date: 03/09/2018 Time: 08:47 Bed 16 Private MD: Diagnosis: Colitis Presentation: 03/09 08:53 Presenting complaint: Patient states: "My stomach is hurting again. I have been here a lk1 couple times and I need a colonoscopy. My intestines are swollen up shut.". Transition of care: patient was not received from another setting of care. Onset of symptoms was March 08, 2018 at 19:00. Initial Sepsis Screen: Does the patient meet any 2 criteria? No. Patient's initial sepsis screen is negative. Does the patient have a suspected source of infection? No. Patient's initial sepsis screen is negative. Care prior to arrival: None. 08:53 Method Of Arrival: Ambulatory lk1 08:53 Acuity: NADEEN 3 lk1 Triage Assessment: 08:55 General: Appears in no apparent distress. Behavior is calm, cooperative, appropriate lk1 for age. General: Smells of alcohol. Pain: Complains of pain in abdomen Pain currently is 9 out of 10 on a pain scale. GI: Abdomen is non-distended, Patient currently denies vomiting, Parent/caregiver reports the patient having diarrhea, nausea. Historical: - Allergies: 08:54 No Known Drug Allergies; lk1 - PMHx: 08:54 Hypertension; lk1 - PSHx: 08:54 Appendectomy; Cholecystectomy; lk1 - Immunization history:: Adult Immunizations up to date. - Social history:: Smoking status: Patient uses tobacco products, smokes one-half pack cigarettes per day, Patient/guardian denies using alcohol. - Family history:: not pertinent. - Hospitalizations: : No recent hospitalization is reported. Screenin:09 Abuse screen: Denies threats or abuse. Denies injuries from another. Nutritional jl7 screening: No deficits noted. Tuberculosis screening: No symptoms or risk factors identified. Fall Risk IV access (20 points). Total Floyd Fall Scale indicates No Risk (0-24 pts). Assessment: 09:09 General: Appears in no apparent distress. Behavior is calm, cooperative, appropriate jl7 for age. Pain: Complains of pain in abdomen Pain does not radiate. Pain currently is 9 out of 10 on a pain scale. Quality of pain is described as throbbing, Pain began 1 day ago. Is continuous. Neuro: Level of Consciousness is awake, alert, obeys commands, Oriented to person, place, time, situation. Cardiovascular: Patient's skin is warm and dry. Respiratory: Airway is patent Respiratory effort is even, unlabored, Respiratory pattern is regular, symmetrical. GI: Bowel sounds present X 4 quads. hypoactive in right upper quadrant, left upper quadrant and left lower quadrant Abd is soft X 4 quads Abd is non tender in left upper quadrant and left lower quadrant Abdomen is tender to palpation in right upper quadrant and right lower quadrant Reports diarrhea, nausea, Patient currently denies vomiting. Derm: Skin is pink, warm \\T\\ dry. 10:00 Reassessment: No changes from previously documented assessment. Patient and/or family jl7 updated on plan of care and expected duration. Pain level reassessed. Patient is alert, oriented x 3, equal unlabored respirations, skin warm/dry/pink. 11:30 Reassessment: Patient appears in no apparent distress at this time. Patient and/or jl7 family updated on plan of care and expected duration. Pain level reassessed. Patient is alert, oriented x 3, equal unlabored respirations, skin warm/dry/pink. Pt back from CT. 12:10 Reassessment: Awaiting medication infusion to complete before discharge. jl7 Vital Signs: 08:55 BP 148 / 93; Pulse 109; Resp 15; Temp 97.1(TE); Pulse Ox 97% ; Weight 90.72 kg (R); lk1 Height 6 ft. 3 in. (190.50 cm) (R); Pain 9/10; 09:51 BP 144 / 91; Pulse 92; Resp 16; Pulse Ox 98% ; jl7 11:37 BP 174 / 97; Pulse 88; Resp 16; Pulse Ox 98% ; jl7 08:55 Body Mass Index 25.00 (90.72 kg, 190.50 cm) lk1 ED Course: 08:47 Patient arrived in ED. rg4 08:54 Triage completed. lk1 08:57 Arm band placed on left wrist. lk1 08:58 Felipe Jiménez MD is Attending Physician. rn 09:09 Harry Christian RN is Primary Nurse. jl7 09:09 Patient has correct armband on for positive identification. Bed in low position. Call jl7 light in reach. Side rails up X 1. Pulse ox on. NIBP on. 09:32 Initial lab(s) drawn, sent to lab. Inserted saline lock: 20 gauge in right antecubital jl7 area, using aseptic technique. ,using aseptic technique. inserted by [employer] EMT student Blood collected. 11:13 Patient moved to [place] via wheelchair. kw1 11:22 CT completed. Patient tolerated procedure well. Patient moved back from CT. kw1 11:24 CT Abd/Pelvis - W/Contrast In Process Unspecified. EDMS 11:54 Yohannes Tatum MD is Referral Physician. rn 13:23 No provider procedures requiring assistance completed. IV discontinued, intact, jl7 bleeding controlled, No redness/swelling at site. Pressure dressing applied. Administered Medications: 09:37 Drug: NS 0.9% 1000 ml Route: IV; Rate: 1000 ml; Site: right antecubital; jl7 10:40 Follow up: IV Status: Completed infusion jl7 09:38 Drug: Zofran 4 mg Route: IVP; Site: right antecubital; jl7 10:30 Follow up: Response: No adverse reaction; Nausea is decreased jl7 12:08 Drug: Cipro 400 mg Volume: 200 ml; Route: IVPB; Infused Over: 60 mins; Site: right jl7 antecubital; 13:10 Follow up: IV Status: Completed infusion jl7 12:08 Drug: Flagyl 500 mg Volume: 100 ml; Route: IVPB; Rate: 200 ml/hr; Infused Over: 30 jl7 mins; Site: right antecubital; 12:40 Follow up: IV Status: Completed infusion jl7 Outcome: 11:54 Discharge ordered by . rn 13:23 Discharged to home ambulatory. jl7 13:23 Condition: stable 13:23 Discharge instructions given to patient, Instructed on discharge instructions, follow up and referral plans. medication usage, Demonstrated understanding of instructions, follow-up care, medications, Prescriptions given X 4. 13:34 Patient left the ED. jl7 Signatures: Dispatcher [employer] EDMS Felipe Jiménez MD MD rn Kluge, Leah, RN RN lk1 Briana Beavers rg4 Harry Christian RN RN jl7 Genoveva Wilson kw1
[2018-03-09] MEDS ORDERED: CIPROFLOXACIN 400mg IV 400 MG/200 ML BAG IV ONE (12:01)
[2018-03-09] MEDS ORDERED: METRONIDAZOLE 500mg IVPB 500 MG/100 ML BAG IV ONE (12:01)
[2018-03-09 13:39] VITALS: TEMP 97.1
[2018-03-09 13:40] VITALS: O2SAT 98
[2018-03-09 13:41] VITALS: BP 174/97
== END 2018-03-09 13:34 | disposition home or self-care (01) ==
LOC: ER 08:44
DX: K52.9 Noninfective gastroenteritis and colitis, unspecified (principal); I10 Essential (primary) hypertension; F17.210 Nicotine dependence, cigarettes, uncomplicated
CPT/HCPCS: 36415; 74177; 80048; 80076; 83690; 85025; 96361; 96365; 96368; 96375; 99284; J0744; J2405; J7030; Q9967

== ENCOUNTER 2018-03-24 08:40 | Observation (INO) | payer SELFPAY ==
[2018-03-24 09:58] LABS: Absolute Lymphocytes (CBC) 1.3 K/uL (0.7-4.9); Absolute Monocytes 0.4 K/uL (0.1-1.3); Absolute Neutrophil 2.2 K/uL (1.8-8.0); Basophils % 0.5 % (0-1.3); Eosinophils % 0.8 % (0-4.4); Hematocrit 43.5 % (39.6-49.0); Lymphocytes % 32.7 % (15.3-44.8); MCH 30.9 pg (27.0-35.0); MCV 90.7 fL (80-100); MPV 7.6 fL (7.6-11.3); Monocytes % 10.7 % (3.3-12.3)
[2018-03-24 10:03] LABS: Potassium 4.3 mEq/L (3.6-5.0)
[2018-03-24 10:09] LABS: Urine Amorphous Sediment 2+ /HPF (NONE SEEN)
[2018-03-24 10:10] LABS: Albumin 3.7 g/dL (3.2-5.5); Bilirubin Direct 0.3 mg/dL (0-0.2); Protein, Total 7.3 g/dL (6.0-8.3); Urine Bacteria NONE SEEN /HPF (NONE SEEN); Urine Culture Reflex Order NOT NEEDED; Urine RBC <5 /HPF (NONE SEEN)
[2018-03-24 10:12] LABS: Urine Blood NEGATIVE (NEG); Urine Glucose NEGATIVE (NEG); Urine Protein NEGATIVE (NEG); Urine Specific Gravity 1.025 (1.005-1.030)
--- NOTE | 2018-03-24 11:21 | ER ---
Nurse's Notes [facility] Name: Wilver Mejia Age: 57 yrs Sex: Male : 1960 Arrival Date: 03/24/2018 Time: 08:45 Bed 23 Private MD: Unknown, Unknown Diagnosis: Vomiting;Diarrhea, unspecified;Colitis Presentation: 03/24 08:52 Presenting complaint: Patient states: generalized abd pain with N/V/D. Pt states "I was aa5 here 2 weeks ago and they said that I probably have a colon tumor and I need a colonoscopy". Transition of care: patient was not received from another setting of care. Onset of symptoms was 2017. Risk Assessment: Do you want to hurt yourself or someone else? Patient reports no desire to harm self or others. Initial Sepsis Screen: Does the patient meet any 2 criteria? No. Patient's initial sepsis screen is negative. Does the patient have a suspected source of infection? No. Patient's initial sepsis screen is negative. Care prior to arrival: None. 08:52 Method Of Arrival: Ambulatory aa5 08:52 Acuity: NADEEN 3 aa5 Historical: - Allergies: 08:53 No Known Allergies; aa5 - PMHx: 08:53 Hypertension; aa5 - PSHx: 08:53 Appendectomy; Cholecystectomy; aa5 - Immunization history:: Adult Immunizations not up to date. - Social history:: Smoking status: Patient uses tobacco products, smokes one-half pack cigarettes per day. - Ebola Screening: : No symptoms or risks identified at this time. - Family history:: not pertinent. - Hospitalizations: : No recent hospitalization is reported. Screenin:59 Abuse screen: Denies threats or abuse. Denies injuries from another. Nutritional aj1 screening: No deficits noted. Tuberculosis screening: No symptoms or risk factors identified. 14:42 Fall Risk No fall in past 12 months (0 pts). No secondary diagnosis (0 pts). IV access aj1 (20 points). Ambulatory Aid- None/Bed Rest/Nurse Assist (0 pts). Gait- Normal/Bed Rest/Wheelchair (0 pts) Mental Status- Oriented to own ability (0 pts). Total Floyd Fall Scale indicates No Risk (0-24 pts). Assessment: 08:59 General: Appears in no apparent distress. uncomfortable, Behavior is calm, cooperative, aj1 appropriate for age. Pain: Complains of pain in abdomen diffusely Pain does not radiate. Pain currently is 10 out of 10 on a pain scale. Quality of pain is described as "like I'm being kicked in the stomach" Pain began 4 days ago Is continuous, Alleviated by rest, Aggravated by movement. Neuro: Level of Consciousness is awake, alert, obeys commands, Oriented to person, place, time, situation. Cardiovascular: Patient's skin is warm and dry. Respiratory: Airway is patent Respiratory effort is even, unlabored, Respiratory pattern is regular, symmetrical. GI: Abdomen is non-distended, Bowel sounds present X 4 quads. Abd is soft X 4 quads Abdomen is tender to palpation in abdomen diffusely Reports diarrhea, nausea, vomiting. : No signs and/or symptoms were reported regarding the genitourinary system. EENT: No signs and/or symptoms were reported regarding the EENT system. Derm: No signs and/or symptoms reported regarding the dermatologic system. Skin is pink, warm \\T\\ dry. normal. Musculoskeletal: No signs and/or symptoms reported regarding the musculoskeletal system. Circulation, motion, and sensation intact. 10:00 Reassessment: Patient appears in no apparent distress at this time. No changes from aj1 previously documented assessment. Patient and/or family updated on plan of care and expected duration. Pain level reassessed. Patient is alert, oriented x 3, equal unlabored respirations, skin warm/dry/pink. 10:47 Reassessment: Patient appears in no apparent distress at this time. No changes from aj1 previously documented assessment. Patient and/or family updated on plan of care and expected duration. Pain level reassessed. Patient is alert, oriented x 3, equal unlabored respirations, skin warm/dry/pink. 11:30 Reassessment: Patient appears in no apparent distress at this time. No changes from aj1 previously documented assessment. Patient and/or family updated on plan of care and expected duration. Pain level reassessed. Patient is alert, oriented x 3, equal unlabored respirations, skin warm/dry/pink. 12:36 Reassessment: Patient appears in no apparent distress at this time. No changes from aj1 previously documented assessment. Patient and/or family updated on plan of care and expected duration. Pain level reassessed. Patient is alert, oriented x 3, equal unlabored respirations, skin warm/dry/pink. 13:33 Reassessment: Attempted to call report, spoke with Maddie on 4th floor who states this aj1 patient has not been assigned to a nurse at this time. 14:42 Reassessment: Patient appears in no apparent distress at this time. No changes from aj1 previously documented assessment. Patient and/or family updated on plan of care and expected duration. Pain level reassessed. Patient is alert, oriented x 3, equal unlabored respirations, skin warm/dry/pink. Vital Signs: 08:53 BP 142 / 88; Pulse 100; Resp 18 S; Temp 98.2(TE); Pulse Ox 96% on R/A; Weight 90.72 kg aa5 (R); Height 6 ft. 3 in. (190.50 cm) (R); Pain 10/10; 10:47 BP 170 / 94; Pulse 87; Resp 18; Pulse Ox 99% ; aj1 12:36 BP 169 / 62; Pulse 92; Resp 18; Pulse Ox 99% ; aj1 14:47 BP 180 / 95; Pulse 85; Resp 18; Pulse Ox 99% ; aj1 08:53 Body Mass Index 25.00 (90.72 kg, 190.50 cm) aa5 ED Course: 08:45 Patient arrived in ED. jb7 08:46 Unknown, Unknown is Private Physician. jb7 08:53 Triage completed. aa5 08:53 Arm band placed on. aa5 08:55 Angelina Wilson, RN is Primary Nurse. aj1 08:56 Felipe Jiménez MD is Attending Physician. rn 08:59 Patient has correct armband on for positive identification. Bed in low position. Call aj1 light in reach. Side rails up X 1. 08:59 No provider procedures requiring assistance completed. aj1 09:35 Initial lab(s) drawn, by me, sent to lab. Inserted saline lock: 20 gauge in right aj1 antecubital area, using aseptic technique. Blood collected. 11:21 Sasha Swan MD is Hospitalizing Provider. rn 14:43 Patient admitted, IV remains in place. aj1 Administered Medications: 12:18 Drug: Zofran 4 mg Route: IVP; Site: right antecubital; aj1 14:48 Follow up: Response: No adverse reaction aj1 Outcome: 11:21 Decision to Hospitalize by Provider. rn 14:48 Admitted to Med/surg accompanied by tech, via wheelchair, with chart. aj1 14:48 Condition: improved 14:48 Discharge instructions given to patient, Instructed on the need for admit, Demonstrated understanding of instructions. 14:52 Patient left the ED. aj1 Signatures: Angelina Wilson RN RN aj1 Felipe Jiménez MD MD rn Calderon, Audri, RN RN aa5 Delvin Ramos jb7
--- NOTE | 2018-03-24 11:21 | EDPHYS ---
Physician Documentation [facility] Name: Wilver Mejia Age: 57 yrs Sex: Male : 1960 Arrival Date: 03/24/2018 Time: 08:45 Bed 23 Private MD: Unknown, Unknown ED Physician Felipe Jiménez HPI: 03/24 10:52 This 57 yrs old Male presents to ER via Ambulatory with complaints of rn Nausea/Vomiting/Diarrhea, Abdominal Pain. 10:52 The patient presents to the emergency department with nausea, vomiting, diarrhea, rn abdominal pain. Historical: - Allergies: 08:53 No Known Allergies; aa5 - PMHx: 08:53 Hypertension; aa5 - PSHx: 08:53 Appendectomy; Cholecystectomy; aa5 - Immunization history:: Adult Immunizations not up to date. - Social history:: Smoking status: Patient uses tobacco products, smokes one-half pack cigarettes per day. - Ebola Screening: : No symptoms or risks identified at this time. - Family history:: not pertinent. - Hospitalizations: : No recent hospitalization is reported. ROS: 11:16 Constitutional: Negative for fever, chills, and weight loss, Eyes: Negative for injury, rn pain, redness, and discharge, Cardiovascular: Negative for chest pain, palpitations, and edema, Respiratory: Negative for shortness of breath, cough, wheezing, and pleuritic chest pain, Abdomen/GI: + abd pain/nausea/vomiting/diarrhea MS/Extremity: Negative for injury and deformity, Skin: Negative for injury, rash, and discoloration, Neuro: Negative for headache, weakness, numbness, tingling, and seizure. Exam: 11:16 Constitutional: This is a well developed, well nourished patient who is awake, alert, rn and in no acute distress. Head/Face: Normocephalic, atraumatic. Eyes: Pupils equal round and reactive to light, extra-ocular motions intact. Lids and lashes normal. Conjunctiva and sclera are non-icteric and not injected. Cornea within normal limits. Periorbital areas with no swelling, redness, or edema. Cardiovascular: Regular rate and rhythm with a normal S1 and S2. No gallops, murmurs, or rubs. Normal PMI, no JVD. No pulse deficits. Respiratory: Lungs have equal breath sounds bilaterally, clear to auscultation and percussion. No rales, rhonchi or wheezes noted. No increased work of breathing, no retractions or nasal flaring. Abdomen/GI: soft, + mild RUQ and right sided abd tenderness, no rebound MS/ Extremity: Pulses equal, no cyanosis. Neurovascular intact. Full, normal range of motion. Equal circumference. Neuro: Awake and alert, GCS 15, oriented to person, place, time, and situation. Motor strength 5/5 in all extremities. Sensory grossly intact. Vital Signs: 08:53 BP 142 / 88; Pulse 100; Resp 18 S; Temp 98.2(TE); Pulse Ox 96% on R/A; Weight 90.72 kg aa5 (R); Height 6 ft. 3 in. (190.50 cm) (R); Pain 10/10; 10:47 BP 170 / 94; Pulse 87; Resp 18; Pulse Ox 99% ; aj1 12:36 BP 169 / 62; Pulse 92; Resp 18; Pulse Ox 99% ; aj1 14:47 BP 180 / 95; Pulse 85; Resp 18; Pulse Ox 99% ; aj1 08:53 Body Mass Index 25.00 (90.72 kg, 190.50 cm) aa5 MDM: 08:56 Patient medically screened. rn 11:16 Differential diagnosis: Nonspecific abd pain, gastritis, pancreatitis, viral rn gastroenteritis, gastroenteritis, colitis, choledocholithiasis. Data reviewed: vital signs, nurses notes, old medical records, lab test result(s), and as a result, I will admit patient. Counseling: I had a detailed discussion with the patient and/or guardian regarding: the historical points, exam findings, and any diagnostic results supporting the discharge/admit diagnosis, lab results, the need for further work-up and treatment in the hospital. Admission orders: after a detailed discussion of the patient's condition and case, the admit orders are written by me. ED course: Pt with persistent and prolonged abd pain/vomiting/diarrhea, multiple ct showing colitis, not getting better despite multiple rounds of abx, will observe in hospital to Dr. Swan with GI consult as patient ahs been trying to get in but unable to.. 03/24 09:16 Order name: Basic Metabolic Panel; Complete Time: 10:14 rn 03/24 09:16 Order name: CBC with Diff; Complete Time: 10:14 rn 03/24 09:16 Order name: Creatinine for Radiology; Complete Time: 10:14 rn 03/24 09:16 Order name: Hepatic Function; Complete Time: 10:14 rn 03/24 09:16 Order name: Lipase; Complete Time: 10:14 rn 03/24 09:16 Order name: Urine Microscopic Only; Complete Time: 10:14 rn 03/24 09:16 Order name: IV Saline Lock; Complete Time: 09:49 rn 03/24 09:16 Order name: Labs collected and sent; Complete Time: 09:49 rn 03/24 09:16 Order name: Urine Dipstick-Ancillary (obtain specimen); Complete Time: 09:49 rn 03/24 09:48 Order name: Urine Dipstick--Ancillary (enter results); Complete Time: 10:14 bd Administered Medications: 12:18 Drug: Zofran 4 mg Route: IVP; Site: right antecubital; aj1 14:48 Follow up: Response: No adverse reaction aj1 Disposition: 03/24/18 11:21 Hospitalization ordered by Sasha Swan for Observation. Preliminary diagnosis are Vomiting, Diarrhea, unspecified, Colitis. - Bed requested for Telemetry/MedSurg (observation). - Status is Observation. aj1 - Condition is Stable. - Problem is an ongoing problem. - Symptoms are unchanged. UTI on Admission? No Signatures: Dispatcher [employer] EDMS Janet Olivas Angela, RN RN aj1 Felipe Jiménez MD MD rn Calderon, Audri, RN RN aa5 Corrections: (The following items were deleted from the chart) 13:15 11:21 Hospitalization Ordered by Sasha Swan MD for Observation. Preliminary bd diagnosis is Vomiting; Diarrhea, unspecified; Colitis. Bed requested for Telemetry/MedSurg (observation). Status is Observation. Condition is Stable. Problem is an ongoing problem. Symptoms are unchanged. UTI on Admission? No. rn 14:52 13:15 03/24/2018 11:21 Hospitalization Ordered by Sasha Swan MD for Observation. aj1 Preliminary diagnosis is Vomiting; Diarrhea, unspecified; Colitis. Bed requested for Telemetry/MedSurg (observation). Status is Observation. Condition is Stable. Problem is an ongoing problem. Symptoms are unchanged. UTI on Admission? No. bd
[2018-03-24] MEDS ORDERED: ONDANSETRON 4 MG/2 ML VIAL ONE (12:18)
--- NOTE | 2018-03-24 12:56 | P.HP ---
Certification for Inpatient Patient admitted to: Observation With expected LOS: <2 Midnights Patient will require the following post-hospital care: None Practitioner: I am a practitioner with admitting privileges, knowledge of patient current condition, hospital course, and medical plan of care. Services: Services provided to patient in accordance with Admission requirements found in Title 42 Section 412.3 of the Code of Federal Regulations Patient History Date of Service: 03/24/18 Primary Care Provider: OOT Reason for admission: Abd Pain, Intractable N/V History of Present Illness: 57-year-old male with significant past medical history of liver cirrhosis who presented to the ED complaining of having some right-sided abdominal pain that has gotten progressively worse. Patient has had repeated admissions here in the hospital for the similar complaints. Patient has a history of liver cirrhosis due to which she has chronic electrolyte abnormality along with colitis. Patient however states that he has been having nausea and vomiting and has not been able to keep anything down. Patient was admitted 2 weeks ago for the similar complaints was started on Cipro and Flagyl and was then discharged home with oral antibiotics and follow up with GI. Patient however states that has not been able to get in to GI for a colonoscopy and is concerned that he might have a colon tumor that has been undiagnosed and this needed to get it worked out. Patient states that he was waiting for a call from the GI doctors office however his right-sided abdominal pain got worse and his nausea vomiting worsened as a decided to come to the ER for further treatment. Patient denies having any fever chills, chest pain or shortness of breath at home. Allergies No Known Drug Allergies Allergy (Mild, Verified 02/03/18 20:57) Unknown Home Medications: Ciprofloxacin HCl [Cipro 500 MG Tablet] 500 mg PO DAILY #10 tab 02/09/18 Lisinopril [Prinivil*] 10 mg PO DAILY #30 tab 02/09/18 Metronidazole [Flagyl] 500 mg PO Q8H #30 tablet 02/09/18 - Past Medical/Surgical History Diabetic: No -: HTN -: ETOH ABUSE -: paralytic ileus -: cholecystectomy -: appendectomy - Family History Father -: Cancer Notes: of Colon Cancer Mother -: Liver disease Notes: Hepatitis because of Blood Transfusion as stated by pt - Social History Alcohol use: Yes CD- Drugs: No Caffeine use: Yes Review of Systems General: As per HPI Physical Examination - Physical Exam General: Alert, In no apparent distress, Oriented x3 HEENT: Atraumatic Neck: Supple, 2+ carotid pulse no bruit, No LAD, Without JVD or thyroid abnormality Respiratory: Clear to auscultation bilaterally, Normal air movement Cardiovascular: Regular rate/rhythm, Normal S1 S2 Gastrointestinal: Normal bowel sounds, Tenderness (Generalized Tenderness and RLQ more than other) Musculoskeletal: No tenderness Integumentary: No rashes Neurological: Normal speech, Normal strength at 5/5 x4 extr, Normal tone Lymphatics: No axilla or inguinal lymphadenopathy - Studies Laboratory Data (last 24 hrs) 03/24/18 09:40: Creatinine 0.97 03/24/18 09:40: WBC 3.9 L, Hgb 14.8, Hct 43.5, Plt Count 306 03/24/18 09:40: Sodium 136, Potassium 4.3, BUN 18, Creatinine 0.98, Glucose 118 , Total Bilirubin 1.0, AST 97 H, ALT 101 H, Alkaline Phosphatase 139 H, Lipase 41 Assessment and Plan - Problems (Diagnosis) (1) Intractable nausea and vomiting Current Visit: Yes Status: Acute Plan: Intractable N/V and Abd pain. most Likely colitis. -IV Zofran -replace Electrolytes as needed -GI consulted. awaiting reccs Qualifiers: Vomiting type: cyclical vomiting Qualified Code(s): G43.A1 - Cyclical vomiting, intractable (2) Abdominal pain Current Visit: No Status: Acute Plan: Intractable N/V and RLQ Abd pain. most Likely colitis. CT scan Recently on 03/09 with colitis. Pt also has diarrhea -IV cipro and flagy. -No diarrhea noted here -GI consulted for possible procedure. -NPO for now Qualifiers: Abdominal location: right lower quadrant Qualified Code(s): R10.31 - Right lower quadrant pain (3) Liver cirrhosis Current Visit: Yes Status: Chronic Qualifiers: Hepatic cirrhosis type: alcoholic cirrhosis Ascites presence: without ascites Qualified Code(s): K70.30 - Alcoholic cirrhosis of liver without ascites (4) HTN (hypertension) Onset Date: 02/04/18 Current Visit: No Status: Chronic Qualifiers: Hypertension type: essential hypertension - Advance Directives Does patient have a Living Will: No Does patient have a Durable POA for Healthcare: No
[2018-03-24] MEDS ORDERED: ONDANSETRON 4 MG/2 ML VIAL IV PRN (14:47)
[2018-03-24] MEDS ORDERED: ACETAMINOPHEN 500 MG TAB PO PRN (14:47)
[2018-03-24] MEDS ORDERED: NA CHLORIDE 0.9% 1,000 ML IV SCH (14:47)
[2018-03-24] MEDS: METRONIDAZOLE 500mg IVPB 500 MG/100 ML BAG IV SCH (17:15)
[2018-03-24 17:52] VITALS: BMI 25.0
--- NOTE | 2018-03-24 20:10 | CON ---
Date of Consultation: 03/24/2018 A 57-year-old male, 413, Dr. Swan for 13 Dr. Reason For Consultation: Abdominal pain, nausea, vomiting, diarrhea, and history or cirrhosis. History Of Present Illness: Mr. Mejia is a 57-year-old male, who comes again with abdominal yma n in the same pattern located in the epigastric area. No radiation. In the past, he had similar pro blem. Multiple workup has been done including radiologic workup that is negative. He states that hi s pain is already better. Although he complains of nausea vomiting, he states that he is hungry and he wants to eat. He also has history of colitis and history of intermittent diarrhea. Denies any he matemesis, melena, or hematochezia. Denies any odynophagia or dysphagia. He has history of stable c irrhosis. Past Medical History: In addition to above, hypertension. Past Surgical History: Not related to above. Family History: Denies any gastrointestinal malignancy in the family. Social History: Does not drink any more alcohol. Allergies: REVIEWED IN THE CHART. Medications: Reviewed in the chart. Review of Systems: General: No fever, chills. No antibiotic. No weight loss, weight gain. Hunger is unchanged HEPATOLOGIC: As above. GI: As above. Pulmonary: No shortness of breath, cough, or expectoration. Cardiac: No palpitation, heart murmur. No orthopnea or dyspnea. Genitourinary: No active complaint. Musculoskeletal: no arthralgia, myalgia. No stiffness. Dermatologic: No pruritus. Neuropsychiatric: No loss of consciousness. No mental status change. Physical Examination: General: Young male at this time. No other acute distress noted. Hemodynamic and respiratory profi le within normal range. HEENT: Atraumatic, normocephalic. Oropharynx is clear. Neck: Supple. No lymphadenopathy. Trachea central in position. Chest: Clear to auscultation and percussion. Cardiovascular: Normal S1, S2. No S3. No S4. Abdomen: At this time is soft, nontender, nondisten ded. Excellent bowel sounds in all quadrants. No hepatomegaly. No splenomegaly. No ascites. No s uccussion splash. Neurologic: Alert and oriented x3. Intact memory, mentation, and judgment. No asterixis. No flapp ing tremor. Can move all parts of extremities without any other problem. Diagnostic Data: Reviewed and analyzed. Impression, Plan, And Recommendation: Mr. Mejia is a 57-year-old gentleman with alleged history of epigastric pain, nausea, vomiting, and history of cirrhosis. I will start his diet, treat him with proton pump inhibitor, and see how he progresses. In addition to that, since he is having repeated nausea and vomiting, a small bowel follow through will be of imp ortance since in the past other radiologic test did not reveal any result right away. Keep him on PPI and other general management including pain control. I have had a discussion with him regarding his management. He has good understanding. He is agreeab humberto. [place]/ALCIDES Voice ID: [id number] Report ID: [id number]
--- NOTE | 2018-03-24 20:58 | RAD REPORT ---
EXAM DESCRIPTION: RAD - Small Bowel Series - 03/24/2018 8:22 pm CLINICAL HISTORY: Abdominal pain/ COMPARISON: None. FINDINGS: Contrast enters the colon by approximately 1 hour . The mucosal folds of the proximal jejunum appear mildly thickened appear No permanent filling defects, obstructing or constricting lesions are seen. The small bowel caliber is normal. IMPRESSION: Mild thickening of the mucosal folds of the proximal jejunum may indicate inflammation.
[2018-03-24] MEDS: CIPROFLOXACIN 400mg IV 400 MG/200 ML BAG IV SCH (21:26)
[2018-03-24 22:56] VITALS: O2SAT 96
[2018-03-25] MEDS: METRONIDAZOLE 500mg IVPB 500 MG/100 ML BAG IV SCH ×2 (02:20→07:55)
[2018-03-25 06:29] LABS: Absolute Lymphocytes (CBC) 1.5 K/uL (0.7-4.9); Absolute Monocytes 0.6 K/uL (0.1-1.3); Absolute Neutrophil 1.7 K/uL (1.8-8.0); Eosinophils % 4.2 % (0-4.4); Hematocrit 37.5 % (39.6-49.0); MCH 31.7 pg (27.0-35.0); MCV 89.1 fL (80-100); MPV 7.7 fL (7.6-11.3); Monocytes % 15.7 % (3.3-12.3); RBC Red Blood Cell Count 4.21 M/uL (4.33-5.43)
[2018-03-25 06:41] LABS: Albumin 3.2 g/dL (3.2-5.5); Bilirubin Total 1.5 mg/dL (0.3-1.2); Magnesium 1.9 mg/dL (1.8-2.5); Phosphorus 3.7 mg/dL (2.5-4.3); Potassium 4.6 mEq/L (3.6-5.0); Protein, Total 6.2 g/dL (6.0-8.3)
[2018-03-25 07:11] LABS: Blood Morphology Comment NOT SEEN (NOT SEEN); Platelet Estimate ADEQ; Urine White Blood Cell Casts OK
[2018-03-25] MEDS: CIPROFLOXACIN 400mg IV 400 MG/200 ML BAG IV SCH (07:55)
[2018-03-25 07:56] VITALS: BP 178/93; TEMP 97
[2018-03-25] MEDS ORDERED: LISINOPRIL 10 MG TAB PO SCH (09:00)
[2018-03-25] MEDS ORDERED: PANTOPRAZOLE 40 MG INJ IVP SCH (09:00)
--- NOTE | 2018-03-25 14:23 | P.DS ---
Admission Date: 03/24/18 Discharge Date: 03/25/18 Primary Care Provider: OOT Disposition: ROUTINE DISCHARGE Discharge Condition: GOOD Reason for Admission: Abd Pain, Intractable N/V - Problems (1) Intractable nausea and vomiting Onset Date: 03/25/18 Status: Resolved Qualifiers: Vomiting type: cyclical vomiting Qualified Code(s): G43.A1 - Cyclical vomiting, intractable (2) Abdominal pain Onset Date: 03/25/18 Status: Resolved Qualifiers: Abdominal location: right lower quadrant Qualified Code(s): R10.31 - Right lower quadrant pain (3) Liver cirrhosis Onset Date: 03/25/18 Status: Chronic Qualifiers: Hepatic cirrhosis type: alcoholic cirrhosis Ascites presence: without ascites Qualified Code(s): K70.30 - Alcoholic cirrhosis of liver without ascites (4) HTN (hypertension) Onset Date: 02/04/18 Status: Chronic Qualifiers: Hypertension type: essential hypertension Brief History of Present Illness: 57-year-old male with significant past medical history of liver cirrhosis who presented to the ED complaining of having some right-sided abdominal pain that has gotten progressively worse. Patient has had repeated admissions here in the hospital for the similar complaints. Patient has a history of liver cirrhosis due to which she has chronic electrolyte abnormality along with colitis. Patient however states that he has been having nausea and vomiting and has not been able to keep anything down. Patient was admitted 2 weeks ago for the similar complaints was started on Cipro and Flagyl and was then discharged home with oral antibiotics and follow up with GI. Patient however states that has not been able to get in to GI for a colonoscopy and is concerned that he might have a colon tumor that has been undiagnosed and this needed to get it worked out. Patient states that he was waiting for a call from the GI doctors office however his right-sided abdominal pain got worse and his nausea vomiting worsened as a decided to come to the ER for further treatment. Patient denies having any fever chills, chest pain or shortness of breath at home. Hospital Course: Overall during the hospital course patient remained stable The patient initially was admitted to the hospital for abdominal pain nausea vomiting and diarrhea. Had abd CT in February 2018 which was consistent with Colitis. The patient also had elevated LFT's and hypoalbuminemia which is most likely consistent with liver cirrhosis which is worse due to dehydration. Patient was initially started on IV Cipro and Flagyl. Pt was switched to PO abx and advanced diet to GI soft. He was able to tolerate diet well. Denied any nausea vomiting or diarrhea. GI was consulted while patient was here in the hospital and agreed with the above plan and recommended the patient have an outpatient colonoscopy done once he is discharged from here and have his acute illness resolved. Patient thus was given a followup appointment with GI as well. The patient was to follow up with primary care doctor in 2 weeks and GI in 2 weeks. Patient was to take p.o. Cipro and Flagyl for total of 10 days. Abstain from alcohol as well. Vital Signs/Physical Exam: Temp Pulse Resp BP Pulse Ox 97.0 F 68 18 178/93 H 95 03/25/18 07:55 03/25/18 07:55 03/25/18 07:55 03/25/18 07:55 03/25/18 07:55 General: Alert, In no apparent distress HEENT: Atraumatic, PERRLA, EOMI Neck: Supple, JVD not distended Respiratory: Clear to auscultation bilaterally, Normal air movement Cardiovascular: Regular rate/rhythm, Normal S1 S2 Gastrointestinal: Normal bowel sounds, No tenderness Musculoskeletal: No tenderness Integumentary: No rashes Neurological: Normal speech, Normal tone, Normal affect Lymphatics: No axilla or inguinal lymphadenopathy Laboratory Data at Discharge: WBC 4.0 K/uL (4.3-10.9) L 03/25/18 05:13 Hgb 13.4 g/dL (13.6-17.9) L 03/25/18 05:13 Hct 37.5 % (39.6-49.0) L 03/25/18 05:13 Plt Count 213 K/uL (152-406) D 03/25/18 05:13 Sodium 134 mEq/L (135-145) L 03/25/18 05:13 Potassium 4.6 mEq/L (3.6-5.0) 03/25/18 05:13 BUN 13 mg/dL (6-20) 03/25/18 05:13 Creatinine 1.07 mg/dL (0.61-1.24) 03/25/18 05:13 Glucose 113 mg/dL (65-120) 03/25/18 05:13 Phosphorus 3.7 mg/dL (2.5-4.3) 03/25/18 05:13 Magnesium 1.9 mg/dL (1.8-2.5) 03/25/18 05:13 Total Bilirubin 1.5 mg/dL (0.3-1.2) H 03/25/18 05:13 AST 88 IU/L (10-42) H 03/25/18 05:13 ALT 91 IU/L (10-60) H 03/25/18 05:13 Alkaline Phosphatase 130 IU/L (42-121) H 03/25/18 05:13 Lipase 41 U/L (22-51) 03/24/18 09:40 Home Medications: Lisinopril 10 mg PO DAILY 03/24/18 Ciprofloxacin HCl 500 mg PO DAILY #10 tablet 03/25/18 Pantoprazole [Protonix Tab] 40 mg PO DAILY #30 tab 03/25/18 metroNIDAZOLE [Flagyl] 500 mg PO Q8H #30 tablet 03/25/18 New Medications: Ciprofloxacin HCl 500 mg PO DAILY #10 tablet metroNIDAZOLE [Flagyl] 500 mg PO Q8H #30 tablet Pantoprazole [Protonix Tab] 40 mg PO DAILY #30 tab Diet: GI bland diet Activity: Ad dimitri Followup: Yohannes Tatum MD [ACTIVE - CAN ADMIT] - 1 Week
== END 2018-03-25 13:45 | disposition home or self-care (01) ==
LOC: ER 08:40 → ERHOLD 11:22 → 4TH 14:44
PROVIDERS: ADMIT Family Medicine; ATTEND Family Medicine
DX: R11.2 Nausea with vomiting, unspecified (principal); R10.9 Unspecified abdominal pain; K74.60 Unspecified cirrhosis of liver; I10 Essential (primary) hypertension
CPT/HCPCS: 36415; 74250; 80048; 80053; 80076; 81003; 81015; 83690; 83735; 84100; 85025; 96374; 99285; C9113; G0378; J0744; J2405

== ENCOUNTER 2018-04-24 08:06 | Emergency (ER) | payer SELFPAY ==
[2018-04-24] MEDS ORDERED: ONDANSETRON 4 MG/2 ML VIAL ONE (08:38)
[2018-04-24] MEDS ORDERED: METRONIDAZOLE 500mg IVPB 500 MG/100 ML BAG IV ONE (08:39)
[2018-04-24] MEDS ORDERED: CIPROFLOXACIN 400mg IV 400 MG/200 ML BAG IV ONE (08:39)
[2018-04-24] MEDS ORDERED: NA CHLORIDE 0.9% 1,000 ML ONE (08:39)
--- NOTE | 2018-04-24 10:31 | ER ---
Nurse's Notes [facility] Name: Wilver Mejia Age: 57 yrs Sex: Male : 1960 Arrival Date: 04/24/2018 Time: 08:08 Bed 16 Private MD: None, None Diagnosis: Colitis;Vomiting;Diarrhea, unspecified Presentation: 04/24 08:15 Initial Sepsis Screen: Does the patient meet any 2 criteria? No. Patient's initial hb sepsis screen is negative. Does the patient have a suspected source of infection? No. Patient's initial sepsis screen is negative. 08:19 Presenting complaint: Patient states: Abdominal pain and N/V/D since Friday. hb Transition of care: patient was not received from another setting of care. Onset of symptoms was April 21, 2018. Risk Assessment: Do you want to hurt yourself or someone else? Patient reports no desire to harm self or others. Care prior to arrival: None. 08:19 Acuity: NADEEN 3 hb 08:19 Method Of Arrival: Ambulatory hb Historical: - Allergies: 08:19 No Known Drug Allergies; hb - PMHx: 08:19 Hypertension; hb - PSHx: 08:19 Appendectomy; Cholecystectomy; hb - Immunization history:: Adult Immunizations up to date. - Social history:: Smoking status: Patient uses tobacco products, smokes one pack cigarettes per day. - Ebola Screening: : No symptoms or risks identified at this time. - Family history:: not pertinent. - Hospitalizations: : No recent hospitalization is reported. Screenin:19 Abuse screen: Denies threats or abuse. Denies injuries from another. Nutritional hb screening: No deficits noted. Tuberculosis screening: No symptoms or risk factors identified. Fall Risk None identified. Assessment: 08:15 General: Appears in no apparent distress. Behavior is calm, cooperative. Pain: Pain hb currently is 8 out of 10 on a pain scale. Neuro: Level of Consciousness is awake, alert, obeys commands, Oriented to person, place, time, situation. Cardiovascular: Capillary refill < 3 seconds Patient's skin is warm and dry. Respiratory: Airway is patent Trachea midline Respiratory effort is even, unlabored, Respiratory pattern is regular, symmetrical. GI: Abdomen is non-distended, Bowel sounds present X 4 quads. Abd is soft X 4 quads Abdomen is tender to palpation in right upper quadrant and left upper quadrant. : No signs and/or symptoms were reported regarding the genitourinary system. EENT: No signs and/or symptoms were reported regarding the EENT system. Derm: No signs and/or symptoms reported regarding the dermatologic system. Skin is intact, is healthy with good turgor, Skin is pink, warm \T\ dry. Musculoskeletal: No signs and/or symptoms reported regarding the musculoskeletal system. 09:00 Reassessment: Patient appears in no apparent distress at this time. No changes from hb previously documented assessment. Patient and/or family updated on plan of care and expected duration. Pain level reassessed. Patient is alert, oriented x 3, equal unlabored respirations, skin warm/dry/pink. 10:19 Reassessment: Patient appears in no apparent distress at this time. No changes from hb previously documented assessment. Patient and/or family updated on plan of care and expected duration. Pain level reassessed. Patient is alert, oriented x 3, equal unlabored respirations, skin warm/dry/pink. Vital Signs: 08:17 BP 126 / 78; Pulse 102; Resp 16; Temp 98.2; Pain 8/10; hb 09:00 BP 136 / 83; Pulse 90; Resp 15; Pulse Ox 100% on R/A; hb 10:00 BP 148 / 82; Pulse 86; Resp 15; Pulse Ox 100% on R/A; hb ED Course: 08:08 Patient arrived in ED. mr 08:09 None, None is Private Physician. mr 08:16 Felipe Jiménez MD is Attending Physician. rn 08:17 Radha Palacio RN is Primary Nurse. hb 08:19 Patient has correct armband on for positive identification. Bed in low position. Call hb light in reach. Side rails up X 1. 08:21 Triage completed. hb 08:39 Inserted saline lock: 20 gauge in left antecubital area, using aseptic technique. dh3 09:00 Arm band placed on. hb 10:44 No provider procedures requiring assistance completed. IV discontinued, intact, hb bleeding controlled, No redness/swelling at site. Pressure dressing applied. Administered Medications: 08:41 Drug: NS 0.9% 1000 ml Route: IV; Rate: 1000 ml; Site: left antecubital; hb 09:30 Follow up: Response: No adverse reaction; IV Status: Completed infusion hb 08:41 Drug: Zofran 4 mg Route: IVP; Site: left antecubital; hb 09:10 Follow up: Response: No adverse reaction; Nausea is decreased hb 08:42 Drug: LevaQUIN 500 mg Volume: 100 ml; Route: IVPB; Infused Over: 60 mins; Site: left hb antecubital; 09:42 Follow up: Response: No adverse reaction; IV Status: Completed infusion hb 08:42 Drug: Flagyl 500 mg Volume: 100 ml; Route: IVPB; Rate: 200 ml/hr; Infused Over: 30 hb mins; Site: left antecubital; 09:15 Follow up: Response: No adverse reaction; IV Status: Completed infusion hb Outcome: 10:30 Discharge ordered by . rn 10:44 Discharged to home ambulatory. 10:44 Condition: stable 10:44 Discharge instructions given to patient, Instructed on discharge instructions, follow up and referral plans. medication usage, Demonstrated understanding of instructions, follow-up care, medications, Prescriptions given X 3. 10:46 Patient left the ED. Signatures: Kerri Foote Roman, MD MD rn Baxter, Heather, RN RN hb Herrera, Deanna 3
--- NOTE | 2018-04-24 10:31 | EDPHYS ---
Physician Documentation [facility] Name: Wilver Mejia Age: 57 yrs Sex: Male : 1960 Arrival Date: 04/24/2018 Time: 08:08 Bed 16 Private MD: None, None ED Physician Felipe Jiménez HPI: 04/24 08:30 This 57 yrs old Male presents to ER via Ambulatory with complaints of rn Abdominal Pain. 08:30 The patient presents with abdominal pain in the epigastric area, in the periumbilical rn area. Onset: The symptoms/episode began/occurred yesterday. The symptoms do not radiate. Associated signs and symptoms: Pertinent positives: nausea and vomiting, diarrhea, Pertinent negatives: fever, testicular pain, vomiting blood. The symptoms are described as achy, crampy, intermittent. Modifying factors: The symptoms are alleviated by nothing, the symptoms are aggravated by nothing. Severity of pain: At its worst the pain was moderate in the emergency department the pain has improved. The patient has experienced similar episodes in the past. The patient has been recently seen by a physician:. Reports recent EGD, + gastritis, has outpt colonoscopy scheduled for next week, reports began with abd pain/nausea/vomiting/diarrhea again, similar to previous episodes, not any worse. . Historical: - Allergies: 08:19 No Known Drug Allergies; hb - PMHx: 08:19 Hypertension; hb - PSHx: 08:19 Appendectomy; Cholecystectomy; hb - Immunization history:: Adult Immunizations up to date. - Social history:: Smoking status: Patient uses tobacco products, smokes one pack cigarettes per day. - Ebola Screening: : No symptoms or risks identified at this time. - Family history:: not pertinent. - Hospitalizations: : No recent hospitalization is reported. ROS: 08:30 Constitutional: Negative for fever, chills, and weight loss, Eyes: Negative for injury, rn pain, redness, and discharge, Cardiovascular: Negative for chest pain, palpitations, and edema, Respiratory: Negative for shortness of breath, cough, wheezing, and pleuritic chest pain, Abdomen/GI: + abd pain/nausea/vomiting/diarrhea Back: Negative for injury and pain, MS/Extremity: Negative for injury and deformity, Skin: Negative for injury, rash, and discoloration, Neuro: Negative for headache, weakness, numbness, tingling, and seizure. Exam: 08:30 Constitutional: This is a well developed, well nourished patient who is awake, alert, rn and in no acute distress. Head/Face: Normocephalic, atraumatic. ENT: MMM Cardiovascular: tachycardic, regular, no murmur Respiratory: Lungs have equal breath sounds bilaterally, clear to auscultation and percussion. No rales, rhonchi or wheezes noted. No increased work of breathing, no retractions or nasal flaring. Abdomen/GI: soft, mild epigastric and periumbilical tenderness, no rebound MS/ Extremity: Pulses equal, no cyanosis. Neurovascular intact. Full, normal range of motion. Equal circumference. Neuro: Awake and alert, GCS 15, oriented to person, place, time, and situation. Motor strength 5/5 in all extremities. Sensory grossly intact. Vital Signs: 08:17 BP 126 / 78; Pulse 102; Resp 16; Temp 98.2; Pain 8/10; hb 09:00 BP 136 / 83; Pulse 90; Resp 15; Pulse Ox 100% on R/A; hb 10:00 BP 148 / 82; Pulse 86; Resp 15; Pulse Ox 100% on R/A; hb MDM: 08:16 Patient medically screened. rn 10:29 Differential diagnosis: diverticulitis, colitis, enteritis. Data reviewed: vital signs, rn nurses notes, old medical records, and as a result, I will discharge patient. Counseling: I had a detailed discussion with the patient and/or guardian regarding: the historical points, exam findings, and any diagnostic results supporting the discharge/admit diagnosis, the need for outpatient follow up, to return to the emergency department if symptoms worsen or persist or if there are any questions or concerns that arise at home. Response to treatment: the patient's symptoms have markedly improved after treatment, patient is well hydrated. and as a result, I will discharge patient. Special discussion: Based on the patient's Hx, exam, and Dx evaluation, there is no indication for emergent surgery or inpatient Tx. It is understood by the patient/guardian that if the Sx's persist or worsen they need to return immediately for re-evaluation. I discussed with the patient/guardian in detail that at this point there is no indication for admission to the hospital. It is understood, however, that if the symptoms persist or worsen the patient needs to return immediately for re-evaluation. Based on the history and exam findings, there is no indication for further emergent testing or inpatient evaluation. I discussed with the patient/guardian the need to see the [employer] worker for further evaluation of the symptoms. 04/24 08:28 Order name: IV Start; Complete Time: 08:39 rn Administered Medications: 08:41 Drug: NS 0.9% 1000 ml Route: IV; Rate: 1000 ml; Site: left antecubital; hb 09:30 Follow up: Response: No adverse reaction; IV Status: Completed infusion hb 08:41 Drug: Zofran 4 mg Route: IVP; Site: left antecubital; hb 09:10 Follow up: Response: No adverse reaction; Nausea is decreased hb 08:42 Drug: LevaQUIN 500 mg Volume: 100 ml; Route: IVPB; Infused Over: 60 mins; Site: left hb antecubital; 09:42 Follow up: Response: No adverse reaction; IV Status: Completed infusion hb 08:42 Drug: Flagyl 500 mg Volume: 100 ml; Route: IVPB; Rate: 200 ml/hr; Infused Over: 30 hb mins; Site: left antecubital; 09:15 Follow up: Response: No adverse reaction; IV Status: Completed infusion hb Disposition: 04/24/18 10:30 Discharged to Home. Impression: Colitis, Vomiting, Diarrhea, unspecified. - Condition is Stable. - Discharge Instructions: Diarrhea, Nausea and Vomiting. - Prescriptions for Zofran ODT 4 mg Oral tablet,disintegrating - place 1 tablet by TRANSLINGUAL route every 8-10 hours As needed; 20 tablet. Flagyl 500 mg Oral Tablet - take 1 tablet by ORAL route every 8 hours for 10 days; 30 tablet. Levaquin 750 mg Oral Tablet - take 1 tablet by ORAL route once daily for 10 days; 10 tablet. - Medication Reconciliation Form, Thank You Letter, Antibiotic Education, Prescription Opioid Use form. - Follow up: Private Physician; When: As needed; Reason: Recheck today's complaints, Re-evaluation by your physician. - Problem is an acute exacerbation. - Symptoms have improved. Signatures: Felipe Jiménez MD MD rn Baxter, Heather, RN RN Corrections: (The following items were deleted from the chart) 10:46 10:30 04/24/2018 10:30 Discharged to Home. Impression: Colitis; Vomiting; Diarrhea, hb unspecified. Condition is Stable. Forms are Medication Reconciliation Form, Thank You Letter, Antibiotic Education, Prescription Opioid Use. Follow up: Private Physician; When: As needed; Reason: Recheck today's complaints, Re-evaluation by your physician. Problem is an acute exacerbation. Symptoms have improved. rn
[2018-04-24 10:55] VITALS: TEMP 98.2
[2018-04-24 10:57] VITALS: O2SAT 100
[2018-04-24 10:58] VITALS: BP 148/82
== END 2018-04-24 10:46 | disposition home or self-care (01) ==
LOC: ER 08:06
DX: K52.9 Noninfective gastroenteritis and colitis, unspecified (principal); I10 Essential (primary) hypertension; F17.210 Nicotine dependence, cigarettes, uncomplicated
CPT/HCPCS: 96365; 96368; 96375; 99283; J0744; J2405; J7030

== ENCOUNTER 2018-05-23 08:31 | Emergency (ER) | payer SELFPAY ==
[2018-05-23 09:19] LABS: Absolute Lymphocytes (CBC) 1.7 K/uL (0.7-4.9); Absolute Monocytes 0.8 K/uL (0.1-1.3); Absolute Neutrophil 3.8 K/uL (1.8-8.0); Basophils % 1.6 % (0-1.3); Eosinophils % 0.9 % (0-4.4); Hematocrit 37.6 % (39.6-49.0); MCH 33.2 pg (27.0-35.0); MPV 8.6 fL (7.6-11.3); RBC Red Blood Cell Count 4.22 M/uL (4.33-5.43)
[2018-05-23 10:07] LABS: Urine Blood NEGATIVE (NEG); Urine Glucose NEGATIVE (NEG); Urine Protein NEGATIVE (NEG); Urine Specific Gravity 1.005 (1.005-1.030); Urine pH 5.5 (5.0-7.0)
[2018-05-23 10:08] LABS: Urine Bacteria <20 /HPF (NONE SEEN); Urine Culture Reflex Order NOT NEEDED; Urine RBC <5 /HPF (NONE SEEN)
[2018-05-23 10:09] LABS: Albumin 3.1 g/dL (3.4-5.0); Bilirubin Direct 0.7 mg/dL (0-0.2); Potassium 3.7 mmol/L (3.5-5.1); Protein, Total 8.2 g/dL (6.4-8.2)
--- NOTE | 2018-05-23 10:56 | RAD REPORT ---
EXAM DESCRIPTION: CT - Head Brain Wo Cont - 05/23/2018 10:34 am CLINICAL HISTORY: WEAKNESS CVA COMPARISON: Head Brain Wo Cont dated 04/06/2016 TECHNIQUE: All CT scans are performed using dose optimization technique as appropriate and may inclu de automated exposure control or mA/KV adjustment according to patient size. FINDINGS: No intracranial hemorrhage, hydrocephalus or extra-axial fluid collection.No areas of brai n edema or evidence of midline shift. The paranasal sinuses and mastoids are clear. The calvarium is intact. IMPRESSION: No acute intracranial abnormality.
--- NOTE | 2018-05-23 11:06 | RAD REPORT ---
EXAM DESCRIPTION: CTAbdomen Pelvis W Contrast - 05/23/2018 10:35 am CLINICAL HISTORY: Abdominal pain. iv only;Abd pain COMPARISON: Abdomen Pelvis W Contrast dated 03/09/2018; Abdomen Pelvis W Contrast dated 02/03/2018 ; Abdomen Pelvis W Contrast dated 11/07/2017; CT ABD PELVIS W CONTRAST dated 02/03/2015 TECHNIQUE: Biphasic CT imaging of the abdomen and pelvis was performed with 100 ml non-ionic IV cont rast. All CT scans are performed using dose optimization technique as appropriate and may include automated exposure control or mA/KV adjustment according to patient size. FINDINGS: The lung bases are clear. Diffuse fatty liver is noted. Cholecystectomy clips are seen. No focal liver mass. The spleen, pancre as, adrenal glands and kidneys are within normal limits. No bowel obstruction, free air, free fluid or abscess. The appendix is not identified as a discrete structure, however, no secondary findings of appendicitis are identified. No evidence of significan t lymphadenopathy. No suspicious bony findings. Small fat containing left inguinal hernia. IMPRESSION: Diffuse fatty liver. Small fat containing left inguinal hernia.
--- NOTE | 2018-05-23 11:09 | RAD REPORT ---
EXAM DESCRIPTION: RAD - Chest Single View - 05/23/2018 10:17 am CLINICAL HISTORY: DYSPNEA Chest pain. COMPARISON: Chest Single View dated 02/24/2018; CHEST SINGLE VIEW dated 02/03/2015; CHEST SINGLE VIEW d ated 03/31/2014; CHEST SINGLE VIEW dated 12/22/2013 FINDINGS: Portable technique limits examination quality. The lungs are grossly clear. The heart is normal in size. No displaced fractures. IMPRESSION: No acute intrathoracic process suspected.
[2018-05-23] MEDS ORDERED: NA CHLORIDE 0.9% 1,000 ML ONE (11:37)
--- NOTE | 2018-05-23 13:16 | RAD REPORT ---
EXAM DESCRIPTION: VAS - Extrem Venous W Compress Eben - 05/23/2018 1:09 pm CLINICAL HISTORY: elevated DD. R/O lower extremity clots Bilateral leg edema and swelling. COMPARISON: Extrem Venous W Compress Eben dated 02/24/2018; Chest Single View dated 02/24/2018 TECHNIQUE: Real-time sonographic interrogation of the left and right lower extremity deep venous sys tems was performed. FINDINGS: Normal compressibility, flow augmentation, phasic flow and spontaneous flow is identified in both the left and right lower extremity deep venous systems. IMPRESSION: No sonographic evidence of left or right lower extremity deep venous thrombosis.
--- NOTE | 2018-05-23 13:20 | EDPHYS ---
Physician Documentation [facility] Name: Wilver Mejia Age: 57 yrs Sex: Male : 1960 Arrival Date: 05/23/2018 Time: 08:34 Bed 13 Private MD: None, None ED Physician Netsor Schneider HPI: 05/23 10:53 This 57 yrs old Male presents to ER via Ambulatory with complaints of jr8 Abdominal Pain, Headache. 10:53 Patient stated that for the past couple of weeks has had abdominal pain and nausea. jr8 Stated that he recently had colonoscopy prior to pain and had polyps removed. Stated that he now has headache and feel that his left arm is week. Patient admitted to recent alcohol consumption as well because he could not tolerate the pain . It is unknown whether or not the patient has had similar symptoms in the past. The patient has been recently seen by a physician:. Historical: - Allergies: 08:42 No Known Drug Allergies; tw2 - Home Meds: 08:42 None [Active]; tw2 - PMHx: 08:42 Hypertension; tw2 - PSHx: 08:42 Appendectomy; Cholecystectomy; tw2 - Immunization history:: Adult Immunizations. - Social history:: Smoking status: Patient uses tobacco products, smokes one pack cigarettes per day. Patient uses alcohol, on a daily basis. - Ebola Screening: : Patient denies travel to an Ebola-affected area in the 21 days before illness onset. ROS: 10:53 Eyes: Negative for injury, pain, redness, and discharge, ENT: Negative for injury, jr8 pain, and discharge, Neck: Negative for injury, pain, and swelling, Cardiovascular: Negative for chest pain, palpitations, and edema, Respiratory: Negative for shortness of breath, cough, wheezing, and pleuritic chest pain, Back: Negative for injury and pain, MS/Extremity: Negative for injury and deformity, Skin: Negative for injury, rash, and discoloration. 10:53 Abdomen/GI: Positive for abdominal pain, nausea and vomiting, Negative for diarrhea, constipation, abdominal cramps, abdominal distension, anorexia, dysphagia, hematemesis, black/tarry stool, rectal pain, rectal bleeding, bowel incontinence, flatulence. 10:53 Neuro: Positive for headache, weakness, Negative for altered mental status, dizziness, gait disturbance, hearing loss, loss of consciousness, numbness, seizure activity, speech changes, syncope, near syncope, tingling, tinnitus, tremor, visual changes. Exam: 10:53 Eyes: Pupils equal round and reactive to light, extra-ocular motions intact. Lids and jr8 lashes normal. Conjunctiva and sclera are non-icteric and not injected. Cornea within normal limits. Periorbital areas with no swelling, redness, or edema. ENT: Nares patent. No nasal discharge, no septal abnormalities noted. Tympanic membranes are normal and external auditory canals are clear. Oropharynx with no redness, swelling, or masses, exudates, or evidence of obstruction, uvula midline. Mucous membranes moist. Neck: Trachea midline, no thyromegaly or masses palpated, and no cervical lymphadenopathy. Supple, full range of motion without nuchal rigidity, or vertebral point tenderness. No Meningismus. Cardiovascular: Regular rate and rhythm with a normal S1 and S2. No gallops, murmurs, or rubs. Normal PMI, no JVD. No pulse deficits. Respiratory: Lungs have equal breath sounds bilaterally, clear to auscultation and percussion. No rales, rhonchi or wheezes noted. No increased work of breathing, no retractions or nasal flaring. Back: No spinal tenderness. No costovertebral tenderness. Full range of motion. Skin: Warm, dry with normal turgor. Normal color with no rashes, no lesions, and no evidence of cellulitis. MS/ Extremity: Pulses equal, no cyanosis. Neurovascular intact. Full, normal range of motion. Neuro: Awake and alert, GCS 15, oriented to person, place, time, and situation. Cranial nerves II-XII grossly intact. Motor strength 5/5 in all extremities. Sensory grossly intact. Cerebellar exam normal. Normal gait. 10:53 Abdomen/GI: Inspection: abdomen appears normal, Bowel sounds: active, all quadrants, Palpation: soft, in all quadrants, moderate abdominal tenderness, in the abdomen diffusely, mass, is not appreciated, rebound tenderness, is not appreciated, voluntary guarding, is not appreciated, involuntary guarding, is not appreciated, no appreciated organomegaly, Indicators: McBurney's point is not tender, Evans's sign is negative, Rovsing's sign is negative, Liver: tenderness, is not appreciated. Vital Signs: 08:42 BP 180 / 96; Pulse 117; Resp 18; Temp 98.1(O); Pulse Ox 97% on R/A; Weight 86.18 kg tw2 (R); Height 6 ft. 3 in. (190.50 cm); Pain 7/10; 09:49 BP 170 / 66; Pulse 105; Resp 17; Pulse Ox 98% on R/A; tw2 11:12 BP 145 / 90; Pulse 97; Resp 17; Pulse Ox 96% on R/A; tw2 12:34 BP 167 / 91; Pulse 94; Resp 17; Pulse Ox 98% on R/A; tw2 13:10 BP 155 / 88; Pulse 91; Resp 17; Pulse Ox 97% on R/A; tw2 08:42 Body Mass Index 23.75 (86.18 kg, 190.50 cm) tw2 NIH Stroke Scale Scores: 10:53 NIHSS Score: 0 jr8 MDM: 08:43 Patient medically screened. jr8 13:17 Data reviewed: vital signs, nurses notes, lab test result(s), EKG, radiologic studies, jr8 CT scan, plain films, ultrasound, and as a result, I will discharge patient. Data interpreted: Pulse oximetry: on room air is 97 %. Interpretation: normal. Counseling: I had a detailed discussion with the patient and/or guardian regarding: the historical points, exam findings, and any diagnostic results supporting the discharge/admit diagnosis, lab results, radiology results, the need for outpatient follow up, a family practitioner, to return to the emergency department if symptoms worsen or persist or if there are any questions or concerns that arise at home. ED course: Patients HR normalized after fluids. Negative DVT on US bilaterally. There was slight DD elevation but patient had IV contrast study already. Patient minimal to no risk factors to have PE based on Wells score. The rest of his studies and labs are essentially normal. Needs to follow up with GI and cardiology for abdominal pain and intermittent shortness of breath . 05/23 09:05 Order name: Amylase, Serum; Complete Time: 10:16 tw2 05/23 09:05 Order name: Basic Metabolic Panel; Complete Time: 10:16 tw2 05/23 09:05 Order name: CBC with Diff; Complete Time: 10:04 tw2 05/23 09:05 Order name: Creatinine for Radiology; Complete Time: 10:04 tw2 05/23 09:05 Order name: Hepatic Function; Complete Time: 10:16 05/23 09:05 Order name: Lipase; Complete Time: 10:16 05/23 09:05 Order name: Urine Microscopic Only; Complete Time: 10:16 05/23 09:50 Order name: Urine Dipstick--Ancillary (enter results); Complete Time: 10:16 mb4 05/23 11:31 Order name: DD; Complete Time: 12:21 05/23 11:31 Order name: TSH; Complete Time: 12:21 05/23 09:05 Order name: IV Saline Lock; Complete Time: 09:05 05/23 09:05 Order name: Labs collected and sent; Complete Time: 09:05 05/23 09:05 Order name: Urine Dipstick-Ancillary (obtain specimen); Complete Time: 09:48 05/23 09:18 Order name: XRAY Chest (1 view); Complete Time: 11:09 05/23 09:18 Order name: EKG; Complete Time: 09:19 05/23 09:18 Order name: Cardiac monitoring; Complete Time: 09:48 05/23 09:18 Order name: EKG - Nurse/Tech; Complete Time: 09:48 05/23 09:18 Order name: O2 Per Protocol; Complete Time: 09:48 05/23 09:18 Order name: O2 Sat Monitoring; Complete Time: 09:48 05/23 10:04 Order name: CT Head Brain wo Cont; Complete Time: 11:09 05/23 10:05 Order name: CT Abd/Pelvis - W/Contrast; Complete Time: 11:09 05/23 12:37 Order name: US Extremity Venous W Compression Eben; Complete Time: 13:17 mb4 Administered Medications: 11:34 Drug: NS 0.9% 1000 ml Route: IV; Rate: 1000 ml; Site: left antecubital; tw2 13:06 Follow up: Response: No adverse reaction; IV Status: Completed infusion; IV Intake: tw2 1000ml Disposition: 05/23/18 13:19 Discharged to Home. Impression: Abdominal and pelvic pain, Shortness of breath. - Condition is Stable. - Discharge Instructions: Abdominal Pain, Adult, Shortness of Breath. - Medication Reconciliation Form, Thank You Letter, Antibiotic Education, Prescription Opioid Use form. - Follow up: Ferny Zavala MD; When: 2 - 3 days; Reason: Recheck today's complaints, Continuance of care, Re-evaluation by your physician. - Problem is new. - Symptoms have improved. NIH Stroke Scale - NIH Stroke Score Date: 05/23/2018 Time: 10:53 Total Score = 0 1a. Level of Consciousness (LOC) - 0(Alert) 1b. Level of Consciousness (LOC) (Year \T\ Age) - 0(Both) 1c. LOC Commands (Open \T\ Closes Eyes/Donor Recruiter) - 0(Both) 2. Best Gaze (Lateral Gaze Paresis) - 0(Normal) 3. Visual Field Loss - 0(No visual loss) 4. Facial Palsy - 0(Normal) 5a. Left Arm: Motor (10-second hold) - 0(No drift) 5b. Right Arm: Motor (10-second hold) - 0(No drift) 6a. Left Leg: Motor (5-second hold - always test supine) - 0(No drift) 6b. Right Leg: Motor (5-second hold - always test supine) - 0(No drift) 7. Limb Ataxia (finger/nose \T\ heel/mckinney - test with eyes open) - 0(Absent) 8. Sensory Loss (pinprick arms/legs/face) - 0(Normal) 9. Best Language: Aphasia (description/naming/reading) - 0(No aphasia) 10. Dysarthria (speech clarity - read or repeat words) - 0(Normal) 11. Extinction and Inattention (visual/tactile/auditory/spatial/personal) - 0(No abnormality) Initials: steve Addendum: 05/25/2018 13:49 Co-signature as Attending Physician, Nestor Schneider MD I agree with the [facility] assessment and plan of care. Signatures: Dispatcher [employer] Nestor Mcgraw MD MD cha Roszak, Josh, PA PA jr8 Summer Strong RN RN tw2 Corrections: (The following items were deleted from the chart) 05/23 13:34 13:19 05/23/2018 13:19 Discharged to Home. Impression: Abdominal and pelvic tw2 pain; Shortness of breath. Condition is Stable. Forms are Medication Reconciliation Form, Thank You Letter, Antibiotic Education, Prescription Opioid Use. Follow up: Ferny Zavala; When: 2 - 3 days; Reason: Recheck today's complaints, Continuance of care, Re-evaluation by your physician. Problem is new. Symptoms have improved. jr8
--- NOTE | 2018-05-23 13:20 | ER ---
Nurse's Notes [facility] Name: Wilver Mejia Age: 57 yrs Sex: Male : 1960 Arrival Date: 05/23/2018 Time: 08:34 Bed 13 Private MD: None, None Diagnosis: Abdominal and pelvic pain;Shortness of breath Presentation: 05/23 08:40 Presenting complaint: Patient states: i had polys removed during a colonscopy May 06 tw2 i was doing ok but now my stomach hurts. Transition of care: patient was not received from another setting of care. Onset of symptoms was May 23, 2018. Risk Assessment: Do you want to hurt yourself or someone else? Patient reports no desire to harm self or others. Initial Sepsis Screen: Does the patient meet any 2 criteria? No. Patient's initial sepsis screen is negative. Does the patient have a suspected source of infection? No. Patient's initial sepsis screen is negative. Care prior to arrival: None. 08:40 Method Of Arrival: Ambulatory tw2 08:40 Acuity: NADEEN 3 tw2 Historical: - Allergies: 08:42 No Known Drug Allergies; tw2 - Home Meds: 08:42 None [Active]; tw2 - PMHx: 08:42 Hypertension; tw2 - PSHx: 08:42 Appendectomy; Cholecystectomy; tw2 - Immunization history:: Adult Immunizations. - Social history:: Smoking status: Patient uses tobacco products, smokes one pack cigarettes per day. Patient uses alcohol, on a daily basis. - Ebola Screening: : Patient denies travel to an Ebola-affected area in the 21 days before illness onset. Screenin:42 Abuse screen: Denies threats or abuse. Nutritional screening: No deficits noted. tw2 Tuberculosis screening: No symptoms or risk factors identified. Fall Risk None identified. Assessment: 08:44 General: Appears in no apparent distress. Behavior is calm, cooperative, appropriate tw2 for age. Pain: Complains of pain in abdomen. Neuro: Level of Consciousness is awake, alert, obeys commands, Oriented to person, place, time, situation. Cardiovascular: Denies chest pain, shortness of breath, Heart tones S1 S2 Capillary refill < 3 seconds Patient's skin is warm and dry. Respiratory: Airway is patent Respiratory effort is even, unlabored, Respiratory pattern is regular, symmetrical, Breath sounds are clear bilaterally. GI: Abdomen is flat, non-distended, Bowel sounds present X 4 quads. Abd is soft X 4 quads Reports diarrhea, nausea. : No signs and/or symptoms were reported regarding the genitourinary system. EENT: No signs and/or symptoms were reported regarding the EENT system. Derm: No signs and/or symptoms reported regarding the dermatologic system. Musculoskeletal: Range of motion: intact in all extremities, Reports numbness in left arm. 09:49 Reassessment: Patient appears in no apparent distress at this time. No changes from tw2 previously documented assessment. Patient and/or family updated on plan of care and expected duration. Pain level reassessed. Patient is alert, oriented x 3, equal unlabored respirations, skin warm/dry/pink. 11:15 Reassessment: Patient appears in no apparent distress at this time. No changes from tw2 previously documented assessment. Patient and/or family updated on plan of care and expected duration. Pain level reassessed. Patient is alert, oriented x 3, equal unlabored respirations, skin warm/dry/pink. 12:34 Reassessment: Patient appears in no apparent distress at this time. No changes from tw2 previously documented assessment. Patient and/or family updated on plan of care and expected duration. Pain level reassessed. Patient is alert, oriented x 3, equal unlabored respirations, skin warm/dry/pink. 13:10 Reassessment: Patient appears in no apparent distress at this time. No changes from tw2 previously documented assessment. Patient and/or family updated on plan of care and expected duration. Pain level reassessed. Patient is alert, oriented x 3, equal unlabored respirations, skin warm/dry/pink. Vital Signs: 08:42 BP 180 / 96; Pulse 117; Resp 18; Temp 98.1(O); Pulse Ox 97% on R/A; Weight 86.18 kg tw2 (R); Height 6 ft. 3 in. (190.50 cm); Pain 7/10; 09:49 BP 170 / 66; Pulse 105; Resp 17; Pulse Ox 98% on R/A; tw2 11:12 BP 145 / 90; Pulse 97; Resp 17; Pulse Ox 96% on R/A; tw2 12:34 BP 167 / 91; Pulse 94; Resp 17; Pulse Ox 98% on R/A; tw2 13:10 BP 155 / 88; Pulse 91; Resp 17; Pulse Ox 97% on R/A; tw2 08:42 Body Mass Index 23.75 (86.18 kg, 190.50 cm) tw2 NIH Stroke Scale Scores: 10:53 NIHSS Score: 0 jr8 ED Course: 08:34 Patient arrived in ED. mr 08:34 None, None is Private Physician. mr 08:40 Summer Strong, SHARONDA is Primary Nurse. tw2 08:41 Triage completed. tw2 08:41 Arm band placed on. tw2 08:42 Placed in gown. Bed in low position. Call light in reach. gambling monitor on. Pulse ox tw2 on. NIBP on. 08:43 Orestes Guerin PA is PHCP. jr8 08:43 Nestor Schneider MD is Attending Physician. jr8 08:54 Inserted saline lock: 20 gauge in left antecubital area, using aseptic technique. Blood dh3 collected. 09:02 EKG done, by ED staff, reviewed by Orestes ROSE. dh3 10:14 X-ray completed. Portable x-ray completed in exam room. Patient tolerated procedure ag1 well. 10:16 XRAY Chest (1 view) In Process Unspecified. EDMS 10:[address] cw1 10:34 CT completed. Patient moved back from CT. vm2 10:34 CT Head Brain wo Cont In Process Unspecified. EDMS 10:34 CT Abd/Pelvis - W/Contrast In Process Unspecified. EDMS 13:09 Ultrasound completed. Patient tolerated well. sg3 13:09 US Extremity Venous W Compression Eben In Process Unspecified. EDMS 13:19 Ferny Zavala MD is Referral Physician. jr8 13:33 No provider procedures requiring assistance completed. IV discontinued, intact, tw2 bleeding controlled, No redness/swelling at site. Pressure dressing applied. Administered Medications: 11:34 Drug: NS 0.9% 1000 ml Route: IV; Rate: 1000 ml; Site: left antecubital; tw2 13:06 Follow up: Response: No adverse reaction; IV Status: Completed infusion; IV Intake: tw2 1000ml Intake: 13:06 IV: 1000ml; Total: 1000ml. tw2 Outcome: 13:19 Discharge ordered by . jr8 13:33 Discharged to home ambulatory. tw2 13:33 Condition: stable 13:33 Discharge instructions given to patient, Instructed on discharge instructions, follow up and referral plans. Demonstrated understanding of instructions, follow-up care. 13:34 Patient left the ED. tw2 NIH Stroke Scale - NIH Stroke Score Date: 05/23/2018 Time: 10:53 Total Score = 0 1a. Level of Consciousness (LOC) - 0(Alert) 1b. Level of Consciousness (LOC) (Year \T\ Age) - 0(Both) 1c. LOC Commands (Open \T\ Closes Eyes/Winter Intern) - 0(Both) 2. Best Gaze (Lateral Gaze Paresis) - 0(Normal) 3. Visual Field Loss - 0(No visual loss) 4. Facial Palsy - 0(Normal) 5a. Left Arm: Motor (10-second hold) - 0(No drift) 5b. Right Arm: Motor (10-second hold) - 0(No drift) 6a. Left Leg: Motor (5-second hold - always test supine) - 0(No drift) 6b. Right Leg: Motor (5-second hold - always test supine) - 0(No drift) 7. Limb Ataxia (finger/nose \T\ heel/mckinney - test with eyes open) - 0(Absent) 8. Sensory Loss (pinprick arms/legs/face) - 0(Normal) 9. Best Language: Aphasia (description/naming/reading) - 0(No aphasia) 10. Dysarthria (speech clarity - read or repeat words) - 0(Normal) 11. Extinction and Inattention (visual/tactile/auditory/spatial/personal) - 0(No abnormality) Initials: steve Signatures: Dispatcher [employer] Kerri Berrios mr WhitleyVeronica cw1 Orestes Guerin PA PA jr8 Rachel Sarkar1 Summer Strong, SHARONDA RN tw2 Marya Cote2 Sulema Alaniz 3 Kaci Hwang3
[2018-05-23 13:48] VITALS: TEMP 98.1
[2018-05-23 13:52] VITALS: BP 155/88; O2SAT 97
--- NOTE | 2018-05-24 10:43 | EKG ---
Test Date: 2018-05-23 Test Time: 08:58:17 Drum Reel Cutter: ANDREE MEASUREMENT RESULTS: Intervals: Rate: 102 HI: 144 QRSD: 94 QT: 344 QTc: 448 [place]: P: 59 HI: 144 QRS: 75 T: 57 INTERPRETIVE STATEMENTS: Sinus tachycardia Otherwise normal ECG Compared to ECG 02/24/2018 10:37:59 Sinus rhythm no longer present Electronically Signed On 05-24-18 10:43:21 CDT by Ferny Zavala
== END 2018-05-23 13:34 | disposition home or self-care (01) ==
LOC: ER 08:31
DX: R10.2 Pelvic and perineal pain (principal); R06.02 Shortness of breath; I10 Essential (primary) hypertension; F17.210 Nicotine dependence, cigarettes, uncomplicated
CPT/HCPCS: 36415; 70450; 71045; 74177; 80048; 80076; 81003; 81015; 82150; 83690; 84443; 85025; 85379; 93005; 93970; 96360; 96361; 99285; J7030; Q9967

== ENCOUNTER 2019-07-21 08:42 | Emergency (ER) | payer SELFPAY ==
[2019-07-21 09:15] LABS: Basophils % 0.8 % (0-1.3); Hematocrit 46.3 % (39.6-49.0); Lymphocytes % 18.7 % (15.3-44.8); MPV 7.4 fL (7.6-11.3); RBC Red Blood Cell Count 5.43 M/uL (4.33-5.43)
[2019-07-21 09:31] LABS: ALT/SGPT 56 U/L (12-78); AST/SGOT 51 U/L (15-37); Alkaline Phosphatase 191 U/L (45-117); BUN Blood Urea Nitrogen 12 mg/dL (7-18); Bicarbonate 28 mmol/L (21-32); Bilirubin Direct 0.2 mg/dL (0-0.2); Bilirubin Total 0.5 mg/dL (0.2-1.0); Glucose Level 111 mg/dL (74-106); Lipase 141 U/L (73-393); Potassium 3.9 mmol/L (3.5-5.1); Protein, Total 8.4 g/dL (6.4-8.2); Sodium Level 141 mmol/L (136-145); Troponin (Emerg Dept Use Only) < 0.02 ng/mL (0.0-0.045)
--- NOTE | 2019-07-21 09:40 | RAD REPORT ---
EXAM DESCRIPTION: Amari Single View07/21/2019 9:27 am CLINICAL HISTORY: Chest pain COMPARISON: 2012 FINDINGS: The lungs appear clear of acute infiltrate. The heart is normal size IMPRESSION: No acute abnormalities displayed
--- NOTE | 2019-07-21 09:42 | EDPHYS ---
Physician Documentation [facility] Name: Wilver Mejia Age: 59 yrs Sex: Male : 1960 Arrival Date: 07/21/2019 Time: 08:43 Bed 20 Private MD: ED Physician Felipe Jiménez HPI: 07/21 08:53 This 59 yrs old Male presents to ER via Ambulatory with complaints of Chest rn Pain, Epigastric Pain. 08:53 The patient or guardian reports chest pain that is located primarily in the substernal rn area, epigastric area. Onset: last night. The pain does not radiate. Associated signs and symptoms: Pertinent positives: abdominal pain, cough, Pertinent negatives: diaphoresis, dizziness, headache, lower extremity pain, lower extremity swelling, lightheadedness, palpitations, recent travel, shortness of breath, syncope, vomiting. The chest pain is described as cramping. Duration: The patient or guardian reports multiple episodes, the episodes last approximately 15 second(s). Modifying factors: The symptoms are alleviated by nothing. the symptoms are aggravated by nothing. Severity of pain: At its worst the pain was mild in the emergency department the pain is unchanged. The patient has not experienced similar symptoms in the past. The patient has not recently seen a physician. Patient arrested, brought in by police, states chest pain and upper abd pain since last night. NO hx of MO, + several episodes of colitis in past. Reports chest pain feels like chest muscles cramp/spasm, lasts 10-15 seconds, and non-radiating. Also reports nausea. . Historical: - Allergies: 08:45 No Known Drug Allergies; sv - PMHx: 08:45 Hypertension; sv - PSHx: 08:45 Cholecystectomy; Appendectomy; sv - Immunization history:: Adult Immunizations up to date. - Social history:: Smoking status: Patient uses tobacco products. - Family history:: not pertinent. - Ebola Screening: : No symptoms or risks identified at this time. - Hospitalizations: : No recent hospitalization is reported. ROS: 08:53 Constitutional: Negative for fever, chills, and weight loss, Eyes: Negative for injury, rn pain, redness, and discharge, Neck: Negative for injury, pain, and swelling, Cardiovascular: Negative for palpitations, and edema, Respiratory: Negative for shortness of breath, wheezing, and pleuritic chest pain, Abdomen/GI: Negative for vomiting, diarrhea, and constipation, MS/Extremity: Negative for injury and deformity, Skin: Negative for injury, rash, and discoloration, Neuro: Negative for headache, weakness, numbness, tingling, and seizure. Exam: 08:53 Constitutional: This is a well developed, well nourished patient who is awake, alert, rn and in no acute distress. Ambulatory to room without difficulty or distress Head/Face: Normocephalic, atraumatic. Eyes: Pupils equal round and reactive to light, extra-ocular motions intact. Lids and lashes normal. Conjunctiva and sclera are non-icteric and not injected. Cornea within normal limits. Periorbital areas with no swelling, redness, or edema. ENT: MMM Cardiovascular: Regular rate and rhythm. No pulse deficits. Respiratory: Lungs have equal breath sounds bilaterally, clear to auscultation. No increased work of breathing, no retractions or nasal flaring. Abdomen/GI: soft, mild epigastric tenderness Skin: Warm, dry with normal turgor. Normal color with no rashes, no lesions, and no evidence of cellulitis. MS/ Extremity: Pulses equal, no cyanosis. Neurovascular intact. Full, normal range of motion. Equal circumference. Neuro: Awake and alert, GCS 15, oriented to person, place, time, and situation. Cranial nerves II-XII grossly intact. Motor strength 5/5 in all extremities. Sensory grossly intact. Cerebellar exam normal. Normal gait. 09:08 ECG was reviewed by the Attending Physician. rn Vital Signs: 08:44 BP 195 / 95; Pulse 98; Resp 17; Temp 98.7(O); Pulse Ox 95% ; Weight 86.18 kg; Height 6 sv ft. 4 in. (193.04 cm); Pain 5/10; 09:36 BP 208 / 85; Pulse 87; Resp 16; Pulse Ox 99% ; sv 10:19 BP 195 / 91; Pulse 96; Resp 14; Pulse Ox 96% on R/A; sv 11:08 BP 181 / 86; Pulse 85; Resp 15; Pulse Ox 99% ; sv 11:29 BP 177 / 79; Pulse 85; Resp 16; Pulse Ox 99% ; sv 08:44 Body Mass Index 23.13 (86.18 kg, 193.04 cm) sv MDM: 08:46 Patient medically screened. rn 09:40 Differential diagnosis: acute myocardial infarction, acute pericarditis, anxiety, rn coronary artery disease chest wall pain, costochondritis, esophagitis, gastritis, gastroesophageal reflux disease (GERD), pancreatitis, pneumonia, pneumothorax. Data reviewed: vital signs, nurses notes, lab test result(s), EKG, radiologic studies, plain films, and as a result, I will discharge patient. Test interpretation: by ED physician or midlevel provider: ECG, plain radiologic studies, CXR negative for acute infiltrate or pneumonia/pneumothorax. Counseling: I had a detailed discussion with the patient and/or guardian regarding: the historical points, exam findings, and any diagnostic results supporting the discharge/admit diagnosis, lab results, radiology results, the need for outpatient follow up, to return to the emergency department if symptoms worsen or persist or if there are any questions or concerns that arise at home. Special discussion: I discussed with the patient/guardian in detail that at this point there is no indication for admission to the hospital. It is understood, however, that if the symptoms persist or worsen the patient needs to return immediately for re-evaluation. 10:39 ED course: Patient was being discharged, then went down to ground, states thinks passed rn out but witnesses including orthotic and prosthetic technician did not see syncopal episode or seizure. CT aorta added and negative for acute findings. Patient still worried of intermittent chest pain, told him not classic for cardiac but will get repeat trop. If normal dc home. Patient very hesitant leaving and seems to complain of more things and is inconsistent with onset and type of symptoms. Not sure if trying to get out of prison, but full workup obtained and negative so far. Given return precautions.. 11:30 Special discussion: I have referred the patient to see his PCP for further evaluation rn of high blood pressure. 07/21 08:47 Order name: Basic Metabolic Panel; Complete Time: 09:39 rn 07/21 08:47 Order name: CBC with Diff; Complete Time: 09:39 rn 07/21 08:47 Order name: LFT's; Complete Time: 09:39 rn 07/21 08:47 Order name: Troponin (emerg Dept Use Only); Complete Time: 09:39 rn 07/21 08:47 Order name: Lipase; Complete Time: 09:39 rn 07/21 10:34 Order name: Troponin (emerg Dept Use Only); Complete Time: 11:30 sv 07/21 08:47 Order name: XRAY Chest (1 view); Complete Time: 09:42 rn 07/21 08:47 Order name: EKG; Complete Time: 08:48 rn 07/21 08:47 Order name: Cardiac monitoring; Complete Time: 08:54 rn 07/21 08:47 Order name: EKG - Nurse/Tech; Complete Time: 08:54 rn 07/21 08:47 Order name: IV Saline Lock; Complete Time: 08:54 rn 07/21 08:47 Order name: Labs collected and sent; Complete Time: 08:54 rn 07/21 09:55 Order name: CT Aorta for Dissection; Complete Time: 10:25 rn 07/21 08:47 Order name: O2 Per Protocol; Complete Time: 08:54 rn 07/21 08:47 Order name: O2 Sat Monitoring; Complete Time: 09:07 rn EC:08 Rate is 89 beats/min. Rhythm is regular. QRS [place] is Normal. [place] interval is normal. QRS rn interval is normal. QT interval is normal. No Q waves. T waves are Normal. No ST changes noted. Clinical impression: Normal ECG. Interpreted by me. Reviewed by me. Administered Medications: 10:03 Drug: cloNIDine 0.2 mg Route: PO; sv 10:17 Follow up: Response: No adverse reaction sv Disposition: 07/21/19 11:31 Discharged to Home. Impression: Chest pain, unspecified. - Condition is Stable. - Discharge Instructions: Nonspecific Chest Pain, Hypertension, Pain Without a Known Cause. - Medication Reconciliation Form, Thank You Letter, Antibiotic Education, Prescription Opioid Use form. - Follow up: Private Physician; When: As needed; Reason: Recheck today's complaints, Re-evaluation by your physician. - Problem is new. - Symptoms have improved. Signatures: Dispatcher [employer] Munira Dumont RN RN Felipe Griffith MD MD learning support teacher: (The following items were deleted from the chart) 08:56 08:53 Constitutional: Negative for fever, chills, and weight loss, Eyes: Negative for rn injury, pain, redness, and discharge, Neck: Negative for injury, pain, and swelling, Cardiovascular: Negative for palpitations, and edema, Respiratory: Negative for shortness of breath, cough, wheezing, and pleuritic chest pain, Abdomen/GI: Negative for vomiting, diarrhea, and constipation, MS/Extremity: Negative for injury and deformity, Skin: Negative for injury, rash, and discoloration, Neuro: Negative for headache, weakness, numbness, tingling, and seizure, rn 09:55 09:41 07/21/2019 09:41 Discharged to Home. Impression: Chest pain, unspecified. rn Condition is Stable. Forms are Medication Reconciliation Form, Thank You Letter, Antibiotic Education, Prescription Opioid Use. Follow up: Private Physician; When: As needed; Reason: Recheck today's complaints, Re-evaluation by your physician. Problem is new. Symptoms have improved. rn 11:54 11:31 07/21/2019 11:31 Discharged to Home. Impression: Chest pain, unspecified. sv Condition is Stable. Forms are Medication Reconciliation Form, Thank You Letter, Antibiotic Education, Prescription Opioid Use. Follow up: Private Physician; When: As needed; Reason: Recheck today's complaints, Re-evaluation by your physician. Problem is new. Symptoms have improved. rn
--- NOTE | 2019-07-21 09:42 | ER ---
Nurse's Notes [facility] Name: Wilver Mejia Age: 59 yrs Sex: Male : 1960 Arrival Date: 07/21/2019 Time: 08:43 Bed 20 Private MD: Diagnosis: Chest pain, unspecified Presentation: 07/21 08:43 Presenting complaint: Patient states: left upper wall chest pain and epigastric pain x sv 1 day. Transition of care: [facility] custody. Onset of symptoms was July 20, 2019. Risk Assessment: Do you want to hurt yourself or someone else? Patient reports no desire to harm self or others. Initial Sepsis Screen: Does the patient meet any 2 criteria? No. Patient's initial sepsis screen is negative. Does the patient have a suspected source of infection? No. Patient's initial sepsis screen is negative. Care prior to arrival: None. 08:43 Method Of Arrival: Ambulatory sv 08:43 Acuity: NADEEN 3 sv Triage Assessment: 08:43 General: Appears in no apparent distress. uncomfortable, well developed, Behavior is sv calm, cooperative, appropriate for age. Pain: Complains of pain in anterior aspect of left upper chest and epigastric area Pain currently is 5 out of 10 on a pain scale. Pain began 1 day ago. Is intermittent. Neuro: Level of Consciousness is awake, alert, obeys commands, Oriented to person, place, time, situation, Moves all extremities. Full function Gait is steady. Cardiovascular: Patient's skin is warm and dry. Rhythm is sinus rhythm. Respiratory: Airway is patent Respiratory effort is even, unlabored, Respiratory pattern is regular, symmetrical. GI: Reports epigastric pain. Derm: Skin is pink, warm \\T\\ dry. Historical: - Allergies: 08:45 No Known Drug Allergies; sv - PMHx: 08:45 Hypertension; sv - PSHx: 08:45 Cholecystectomy; Appendectomy; sv - Immunization history:: Adult Immunizations up to date. - Social history:: Smoking status: Patient uses tobacco products. - Family history:: not pertinent. - Ebola Screening: : No symptoms or risks identified at this time. - Hospitalizations: : No recent hospitalization is reported. Screenin:45 Abuse screen: Denies threats or abuse. Denies injuries from another. Nutritional sv screening: No deficits noted. Tuberculosis screening: No symptoms or risk factors identified. Fall Risk None identified. Assessment: 08:54 Reassessment: Patient appears in no apparent distress at this time. No changes from sv previously documented assessment. Patient and/or family updated on plan of care and expected duration. Pain level reassessed. Patient is alert, oriented x 3, equal unlabored respirations, skin warm/dry/pink. 09:47 Reassessment: Was in pt's room to discharge him. Discontinued IV and cardiac sv monitoring; turned around to face the financial processing clerk to replace wires. Pt was then on the ground laying, stated "I don't know what happened. I know there's something wrong with me." PD at bedside stated he was sitting down on the bed and stood up and slid to the ground. Pt stated "It felt like I just went to sleep." No head injury or other injuries noted. Informed Dr Jiménez. 10:00 Reassessment: Patient appears in no apparent distress at this time. Patient and/or sv family updated on plan of care and expected duration. Pain level reassessed. Patient is alert, oriented x 3, equal unlabored respirations, skin warm/dry/pink. Pt asked not to get up out of bed for his safety. 10:17 Reassessment: Patient appears in no apparent distress at this time. Patient and/or sv family updated on plan of care and expected duration. Pain level reassessed. Patient is alert, oriented x 3, equal unlabored respirations, skin warm/dry/pink. 11:00 Reassessment: Pt noted to be up out of bed and ambulating to the bathroom with no sv difficulty. 11:53 Reassessment: Patient appears in no apparent distress at this time. No changes from sv previously documented assessment. Patient and/or family updated on plan of care and expected duration. Pain level reassessed. Patient is alert, oriented x 3, equal unlabored respirations, skin warm/dry/pink. Vital Signs: 08:44 BP 195 / 95; Pulse 98; Resp 17; Temp 98.7(O); Pulse Ox 95% ; Weight 86.18 kg; Height 6 sv ft. 4 in. (193.04 cm); Pain 5/10; 09:36 BP 208 / 85; Pulse 87; Resp 16; Pulse Ox 99% ; sv 10:19 BP 195 / 91; Pulse 96; Resp 14; Pulse Ox 96% on R/A; sv 11:08 BP 181 / 86; Pulse 85; Resp 15; Pulse Ox 99% ; sv 11:29 BP 177 / 79; Pulse 85; Resp 16; Pulse Ox 99% ; sv 08:44 Body Mass Index 23.13 (86.18 kg, 193.04 cm) sv ED Course: 08:43 Patient arrived in ED. sv 08:43 Munira Aguilar, RN is Primary Nurse. sv 08:44 Triage completed. sv 08:45 Arm band placed on. sv 08:45 Patient has correct armband on for positive identification. Bed in low position. Call sv light in reach. [employer] at bedside. global head advertiser solutions on. Pulse ox on. NIBP on. Door closed. Head of bed elevated. 08:46 Felipe Jiménez MD is Attending Physician. rn 08:46 ED physician to see patient. sv 08:50 Inserted saline lock: 20 gauge in right antecubital area, using aseptic technique. sv Blood collected. Flushed right antecubital with 5 ml normal saline. 08:54 Awaiting lab results. sv 09:00 Patient maintains SpO2 saturation greater than 95% on room air. sv 09:27 XRAY Chest (1 view) In Process Unspecified. EDMS 10:00 Inserted saline lock: 20 gauge in left antecubital area, using aseptic technique. sv Flushed left antecubital with 5 ml normal saline. 10:[address] via wheelchair. sv 10:16 CT Aorta for Dissection In Process Unspecified. EDMS 10:17 Patient moved back from CT. sv 10:18 Awaiting radiology results. sv 10:37 Repeat lab(s) drawn. by ms, sent to lab. sv 11:53 No provider procedures requiring assistance completed. IV discontinued, intact, sv bleeding controlled, No redness/swelling at site. Pressure dressing applied. Administered Medications: 10:03 Drug: cloNIDine 0.2 mg Route: PO; sv 10:17 Follow up: Response: No adverse reaction sv Outcome: 09:41 Discharge ordered by . rn 11:31 Discharge ordered by MD. rn 11:53 Discharged to home ambulatory, with [employer] sv 11:53 Condition: stable 11:53 Discharge instructions given to patient, Instructed on discharge instructions, follow up and referral plans. Demonstrated understanding of instructions, follow-up care. 11:54 Patient left the ED. sv Signatures: Dispatcher [employer] Munira Dumont RN RN sv Felipe Jiménez MD MD sheet metal journeyman: (The following items were deleted from the chart) 10:20 10:19 Pulse 96bpm; Resp 14bpm; Pulse Ox 96% RA; sv sv
[2019-07-21] MEDS ORDERED: cloNIDine HCl 0.1 MG TAB ONE (10:01)
--- NOTE | 2019-07-21 10:23 | RAD REPORT ---
EXAM DESCRIPTION: CT - Angio Aorta For Dissection - 07/21/2019 10:14 am CLINICAL HISTORY: Chest pain radiating to the back. chest pain, hypertensive, near syncope COMPARISON: No comparisons TECHNIQUE: CT angiography of the aorta was performed with MIPs. All CT scans are performed using dose optimization technique as appropriate and may include automated exposure control or mA/KV adjustment according to patient size. FINDINGS: A left aortic arch is present with normal branching pattern of the great vessels.No acute aortic finding is seen such as aneurysm, penetrating ulcer or dissection. The celiac axis, SMA, REVA and renal arteries are patent. Mild atheromatous plaquing is seen at the origin of both renal arterie s, greater on the right. No evidence of pulmonary embolism. Lungs are mildly emphysematous but clear of acute infiltrate. The liver demonstrates no focal mass or biliary dilatation.Cholecystectomy clips.The spleen, pancreas , adrenal glands and kidneys are within normal limits for arterial phase imaging. No bowel obstruction, free fluid or abscess.No pathologic enlarged lymphadenopathy identified. No fracture or worrisome bone lesion seen. IMPRESSION: No acute aortic finding is demonstrated.
--- NOTE | 2019-07-21 11:37 | EKG ---
Test Date: 2019-07-21 Test Time: 08:52:10 Prop And Scenery Maker: PARRISH MEASUREMENT RESULTS: Intervals: Rate: 89 IA: 138 QRSD: 94 QT: 358 QTc: 435 [place]: P: 63 IA: 138 QRS: 73 T: 62 INTERPRETIVE STATEMENTS: Normal sinus rhythm Minimal voltage criteria for LVH, may be normal variant Borderline ECG Compared to ECG 05/23/2018 08:58:17 Left ventricular hypertrophy now present Sinus tachycardia no longer present Electronically Signed On 07-21-19 11:36:06 CDT by Ferny Zavala
[2019-07-21 11:57] VITALS: TEMP 98.7
[2019-07-21 12:01] VITALS: O2SAT 99
[2019-07-21 12:03] VITALS: BP 177/79
== END 2019-07-21 11:54 | disposition home or self-care (01) ==
LOC: ER 08:42
DX: R07.9 Chest pain, unspecified (principal); I10 Essential (primary) hypertension; Z72.0 Tobacco use
CPT/HCPCS: 36415; 71045; 71275; 74175; 80048; 80076; 83690; 84484; 85025; 93005; 99285; Q9967

== ENCOUNTER 2020-04-07 14:47 | Emergency (ER) | payer SELFPAY ==
--- NOTE | 2020-04-07 15:28 | RAD REPORT ---
EXAM DESCRIPTION: RAD - Chest Single View - 04/07/2020 3:16 pm CLINICAL HISTORY: AMS Chest pain. COMPARISON: Chest Single View dated 07/21/2019; Chest Single View dated 05/23/2018; Chest Single View d ated 02/24/2018; CHEST SINGLE VIEW dated 02/03/2015 FINDINGS: Portable technique limits examination quality. The lungs are grossly clear. The heart is upper limit of normal in size. No displaced fractures. IMPRESSION: No acute intrathoracic process suspected.
[2020-04-07 15:45] LABS: Absolute Lymphocytes (CBC) 1.9 K/uL (0.7-4.9); Basophils % 0.9 % (0-1.3); Hematocrit 40.6 % (39.6-49.0); Lymphocytes % 17.8 % (15.3-44.8); MPV 8.3 fL (7.6-11.3); Protime INR 1.05; RBC Red Blood Cell Count 4.77 M/uL (4.33-5.43)
--- NOTE | 2020-04-07 16:01 | RAD REPORT ---
EXAM DESCRIPTION: CT - Head Brain Wo Cont - 04/07/2020 3:54 pm CLINICAL HISTORY: CONFUSED Headache, drowsiness COMPARISON: Head Brain Wo Cont dated 05/23/2018; Head Brain Wo Cont dated 04/06/2016 TECHNIQUE: All CT scans are performed using dose optimization technique as appropriate and may inclu de automated exposure control or mA/KV adjustment according to patient size. FINDINGS: No intracranial hemorrhage, hydrocephalus or extra-axial fluid collection.No areas of brai n edema or evidence of midline shift. The paranasal sinuses and mastoids are clear. The calvarium is intact. IMPRESSION: No acute intracranial abnormality.
[2020-04-07 16:09] LABS: ALT/SGPT 43 U/L (12-78); AST/SGOT 24 U/L (15-37); Albumin 3.8 g/dL (3.4-5.0); Alkaline Phosphatase 187 U/L (45-117); BUN Blood Urea Nitrogen 20 mg/dL (7-18); Bicarbonate 26 mmol/L (21-32); Bilirubin Direct 0.1 mg/dL (0-0.2); Bilirubin Total 0.3 mg/dL (0.2-1.0); Glucose Level 111 mg/dL (74-106); Magnesium 2.3 mg/dL (1.8-2.4); NT PRO-BNP 69 pg/mL (<125); Potassium 3.8 mmol/L (3.5-5.1); Protein, Total 7.6 g/dL (6.4-8.2); Sodium Level 142 mmol/L (136-145); Troponin (Emerg Dept Use Only) < 0.02 ng/mL (0.0-0.045)
--- NOTE | 2020-04-07 16:41 | EDPHYS ---
Physician Documentation [facility] Name: Wilver Mejia Age: 59 yrs Sex: Male : 1960 Arrival Date: 04/07/2020 Time: 14:51 Bed 3 Private MD: ED Physician Chuy Nickerson HPI: 04/08 07:49 This 59 yrs old Male presents to ER via EMS with complaints of Altered Mental kdr Status. 07:49 The patient presents with decreased responsiveness. Onset: The symptoms/episode kdr began/occurred suddenly, just prior to arrival. Possible causes: CVA or TIA, drug use, alcohol, head injury. Associated signs and symptoms: The patient has no apparent associated signs or symptoms. Current symptoms: In the emergency department the patient's symptoms have improved, moderately. Patient's baseline: Neuro: alert and fully oriented, Motor: no deficits, Ambulation: walks without assistance, Speech:. It is unknown whether or not the patient has had similar symptoms in the past. It is unknown whether or not the patient has recently seen a physician. The patient was found passed out on the ground under a vehicle he had been working on. There was no evidence or suspicion of trauma. Historical: - Allergies: 04/07 15:00 No Known Drug Allergies; ph - PMHx: 15:00 Hypertension; ph - PSHx: 15:00 Cholecystectomy; Appendectomy; ph - Immunization history:: Adult Immunizations unknown. ROS: 04/08 07:49 Constitutional: The patient is a poor historian and mildly uncooperative kdr Exam: 07:49 Constitutional: This is a well developed, well nourished patient who is awake, alert, kdr and in no acute distress. Head/Face: Normocephalic, atraumatic. Eyes: Pupils equal round and reactive to light, extra-ocular motions intact. Lids and lashes normal. Conjunctiva and sclera are non-icteric and not injected. Cornea within normal limits. Periorbital areas with no swelling, redness, or edema. Neck: Trachea midline, no thyromegaly or masses palpated, and no cervical lymphadenopathy. Supple, full range of motion without nuchal rigidity, or vertebral point tenderness. No Meningismus. Chest/axilla: Normal chest wall appearance and motion. Nontender with no deformity. No lesions are appreciated. Cardiovascular: Regular rate and rhythm with a normal S1 and S2. No gallops, murmurs, or rubs. Normal PMI, no JVD. No pulse deficits. Respiratory: Lungs have equal breath sounds bilaterally, clear to auscultation and percussion. No rales, rhonchi or wheezes noted. No increased work of breathing, no retractions or nasal flaring. Abdomen/GI: Soft, non-tender, with normal bowel sounds. No distension or tympany. No guarding or rebound. No evidence of tenderness throughout. Back: No spinal tenderness. No costovertebral tenderness. Full range of motion. Skin: Warm, dry with normal turgor. Normal color with no rashes, no lesions, and no evidence of cellulitis. MS/ Extremity: Pulses equal, no cyanosis. Neurovascular intact. Full, normal range of motion. Psych: Awake, alert, with orientation to person, place and time. Behavior, mood, and affect are within normal limits. 07:49 Neuro: Orientation: appropriate for stated age, Mentation: lucid, inappropriate for stated age, slow to respond, confused, Memory: appropriate for stated age, no acute changes, Cranial nerves: is grossly normal based on the patient's age, no acute changes, Cerebellar function: is grossly normal based on the patient's age, Motor: is normal. Vital Signs: 04/07 14:52 BP 104 / 58; Pulse 77; Resp 18; Temp 98.3; Pulse Ox 97% on R/A; Weight 104.33 kg; ph 16:14 BP 103 / 56; Pulse 72; Resp 18; Pulse Ox 93% on R/A; ph 16:14 pt asleep ph MDM: 16:40 Patient medically screened. kdr 04/08 07:49 Data reviewed: vital signs, nurses notes, lab test result(s), radiologic studies. kdr Counseling: I had a detailed discussion with the patient and/or guardian regarding: the historical points, exam findings, and any diagnostic results supporting the discharge/admit diagnosis, lab results, radiology results, the need for outpatient follow up. ED course: The patient eloped from the department prior to any sober adult present to escort him home [employer] was notified per Philippe. 04/07 14:53 Order name: Basic Metabolic Panel kdr 04/07 14:53 Order name: CBC with Diff kdr 04/07 14:53 Order name: LFT's; Complete Time: 16:31 [facility] 04/07 14:53 Order name: Magnesium; Complete Time: 16:31 [facility] 04/07 14:53 Order name: NT PRO-BNP; Complete Time: 16:31 [facility] 04/07 14:53 Order name: PT-INR; Complete Time: 16:31 [facility] 04/07 14:53 Order name: Troponin (emerg Dept Use Only); Complete Time: 16:31 [facility] 04/07 14:53 Order name: XRAY Chest (1 view); Complete Time: 16:31 [facility] 04/07 14:53 Order name: EKG; Complete Time: 14:54 [facility] 04/07 14:53 Order name: Basic Metabolic Panel; Complete Time: 16:31 [facility] 04/07 14:53 Order name: CBC with Automated Diff; Complete Time: 16:31 [facility] 04/07 15:23 Order name: ETOH Level; Complete Time: 16:31 [facility] 04/07 15:24 Order name: CT Head Brain wo Cont; Complete Time: 16:31 [facility] 04/07 14:53 Order name: Cardiac monitoring; Complete Time: 15:35 [facility] 04/07 14:53 Order name: EKG - Nurse/Tech; Complete Time: 15:52 [facility] 04/07 14:53 Order name: IV Saline Lock; Complete Time: 15:35 [facility] 04/07 14:53 Order name: Labs collected and sent; Complete Time: 15:35 [facility] 04/07 14:53 Order name: O2 Per Protocol; Complete Time: 15:35 [facility] 04/07 14:53 Order name: O2 Sat Monitoring; Complete Time: 15:35 [facility] Administered Medications: No medications were administered Disposition: 04/07/20 16:40 Discharged to Home. Impression: Alcohol intoxication, Altered mental status, unspecified. - Condition is Stable. - Discharge Instructions: Confusion, Alcohol Intoxication, [id number]. - Medication Reconciliation Form, Thank You Letter form. - Follow up: Private Physician; When: 2 - 3 days; Reason: If symptoms return, Further diagnostic work-up, Recheck today's complaints, Continuance of care, Re-evaluation by your physician. - Problem is new. - Symptoms have improved. Signatures: Dispatcher [employer] [facility] Chuy Nickerson MD MD kdr Philippe Araiza, SHARONDA RN em Carla Flores RN RN ph Corrections: (The following items were deleted from the chart) 04/07 16:40 16:40 04/07/2020 16:40 Discharged to Home. Impression: Alcohol intoxication. Condition kdr is Stable. Forms are Medication Reconciliation Form, Thank You Letter, Antibiotic Education, Prescription Opioid Use. Follow up: Private Physician; When: 2 - 3 days; Reason: If symptoms return, Further diagnostic work-up, Recheck today's complaints, Continuance of care, Re-evaluation by your physician. Problem is new. Symptoms have improved. kdr 17:38 16:40 04/07/2020 16:40 Discharged to Home. Impression: Alcohol intoxication; Altered em mental status, unspecified. Condition is Stable. Forms are Medication Reconciliation Form, Thank You Letter, Antibiotic Education, Prescription Opioid Use. Follow up: Private Physician; When: 2 - 3 days; Reason: If symptoms return, Further diagnostic work-up, Recheck today's complaints, Continuance of care, Re-evaluation by your physician. Problem is new. Symptoms have improved. kdr
--- NOTE | 2020-04-07 16:41 | ER ---
Nurse's Notes [facility] Name: Wilver Mejia Age: 59 yrs Sex: Male : 1960 Arrival Date: 04/07/2020 Time: 14:51 Bed 3 Private MD: Diagnosis: Alcohol intoxication;Altered mental status, unspecified Presentation: 04/07 14:52 Chief complaint: EMS states: Pt's boss called EMS for altered mental status, reports ph that he spoke to pt at 1230 and he seemed "normal", went by to check on him at approx 1315 and found him passed out under a vehicle he had been working on, pt smelled of ETOH and an unlabeled bottle of clear fluid on scene smelled of ETOH but pt denies drinking, pt drowsy w/ slurred speech upon arrival, reports R sided chest pain. Coronavirus screen: Patient denies a cough. Patient denies shortness of breath or difficulty breathing. Patient denies measured and/or subjective temperature greater than 100.4F prior to today's visit. Patient denies travel on a cruise ship or to a country the [facility] currently lists as an affected area. Patient denies contact with known and/or suspected case of COVID-19. Ebola Screen: No symptoms or risks identified at this time. Initial Sepsis Screen: Does the patient meet any 2 criteria? No. Patient's initial sepsis screen is negative. Does the patient have a suspected source of infection? No. Patient's initial sepsis screen is negative. Risk Assessment: Do you want to hurt yourself or someone else? Patient reports no desire to harm self or others. Onset of symptoms was April 07, 2020. 14:52 [facility]: [facility] 14:52 Acuity: NADEEN 2 ph Historical: - Allergies: 15:00 No Known Drug Allergies; ph - PMHx: 15:00 Hypertension; ph - PSHx: 15:00 Cholecystectomy; Appendectomy; ph - Immunization history:: Adult Immunizations unknown. Screenin:56 Abuse screen: Denies threats or abuse. Nutritional screening: No deficits noted. em Tuberculosis screening: No symptoms or risk factors identified. Fall Risk None identified. Assessment: 16:08 General: Appears in no apparent distress. comfortable, Behavior is cooperative, drowsy, ph Smells of alcohol. Pain: Complains of pain in anterior aspect of left upper chest Quality of pain is described as burning. Neuro: Level of Consciousness is obeys commands, lethargic, Oriented to person, place, time, [employer] are equal bilaterally Moves all extremities. Speech is slurred, Facial symmetry appears normal, Facial symmetry: tongue is midline, Pupils are PERRLA, Intact. Cardiovascular: Reports chest pain, Denies nausea, palpitations, shortness of breath, Capillary refill < 3 seconds in bilateral fingers Patient's skin is warm and dry. Chest pain quality is burning, is located in left anterior chest wall. Respiratory: Airway is patent Respiratory effort is even, unlabored. GI: No signs and/or symptoms were reported involving the gastrointestinal system. Derm: Skin is intact, Skin is pink, warm \\T\\ dry. Musculoskeletal: Circulation, motion, and sensation intact. Range of motion: intact in all extremities. 17:10 Reassessment: pt states he wants to leave and go smoke, pt states he will get a friend em to call, pt left before friend arrived, [employer] notified. Vital Signs: 14:52 BP 104 / 58; Pulse 77; Resp 18; Temp 98.3; Pulse Ox 97% on R/A; Weight 104.33 kg; ph 16:14 BP 103 / 56; Pulse 72; Resp 18; Pulse Ox 93% on R/A; ph 16:14 pt asleep ph ED Course: 14:51 Patient arrived in ED. ph 14:52 Chuy Nickerson MD is Attending Physician. kdr 14:59 Triage completed. ph 15:00 Arm band placed on Patient placed in an exam room, on a stretcher. ph 15:03 Philippe Araiza, RN is Primary Nurse. em 15:16 XRAY Chest (1 view) In Process Unspecified. EDMS 15:33 Initial lab(s) drawn, by az, sent to lab. dh3 15:50 EKG done, by ED staff, reviewed by Chuy Nickerson MD. dh3 15:54 CT Head Brain wo Cont In Process Unspecified. EDMS 15:57 Patient has correct armband on for positive identification. Bed in low position. Call em light in reach. Pulse ox on. NIBP on. 16:10 CBC with Diff Sent. dm5 16:10 Basic Metabolic Panel Sent. dm5 17:37 No provider procedures requiring assistance completed. IV discontinued, intact, em bleeding controlled, No redness/swelling at site. Pressure dressing applied. Administered Medications: No medications were administered Outcome: 16:40 Discharge ordered by . greta 17:15 Eloped from patient exam room, after seeing physician Time discovered patient gone: em April 07, 2020 at 17:15 17:15 Condition: stable 17:38 Patient left the ED. em Signatures: Dispatcher [employer] Maye Salazar, RN RN dm5 Chuy Nickerson MD MD kdr Munoz, Edgar, RN RN em Carla Flores RN RN [place], Sulema [facility]
[2020-04-07 18:01] VITALS: TEMP 98.3
[2020-04-07 18:02] VITALS: BP 103/56; O2SAT 93
--- NOTE | 2020-04-08 05:55 | EKG ---
Test Date: 2020-04-07 Test Time: 15:48:17 Manager Of Customer Billing: ANDREE MEASUREMENT RESULTS: Intervals: Rate: 78 SC: 164 QRSD: 100 QT: 382 QTc: 435 [place]: P: 68 SC: 164 QRS: 73 T: 74 INTERPRETIVE STATEMENTS: Normal sinus rhythm Normal ECG Compared to ECG 07/21/2019 08:52:10 Left ventricular hypertrophy no longer present Electronically Signed On 04-08-20 05:53:43 CDT by Maikol Roland
== END 2020-04-07 17:38 | disposition home or self-care (01) ==
LOC: ER 14:47
DX: R41.82 Altered mental status, unspecified (principal); F10.129 Alcohol abuse with intoxication, unspecified
CPT/HCPCS: 36415; 70450; 71045; 80048; 80076; 80320; 83735; 83880; 84484; 85025; 85610; 93005; 99284